=== PATIENT | male | born 1955 ===

== ENCOUNTER 2016-09-17 14:50 | Inpatient (IN) | payer MEDICARE ==
[2016-09-11 18:40] VITALS: PULSE 176
[2016-09-17 15:52] VITALS: BMI 25.9
[2016-09-17] MEDS ORDERED: Oxycodone/Acetaminophen 5/325 mg Tab PO PRN ×2 (17:15)
[2016-09-17] MEDS ORDERED: TIGECYCLINE 50 MG IV SCH (17:15)
--- NOTE | 2016-09-17 18:42 | CP.PCM.CON ---
History of Present Illness - History of Present Illness History of Present Illness: Dr Garza PMR consultation on Pedro Mtz, born 1955, who has been admitted to [facility] for acute inpatient rehabilitation following a right BKA at [facility]. Had long standing ulcer and had multiple prior surgeries that did not heal and lead to eventual BKA. He is in a lot of pain. Had been on IVP dilaudid. 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 Ambulated with a walker at home Review of Systems - Constitutional Constitutional: absent: Anorexia, Chills - EENT Eyes: Blurred Vision, Loss of Vision Ears: absent: Decreased Hearing, Ear Discharge, Disequilibrium Nose/Mouth/Throat: absent: Nasal Congestion - Cardiovascular Cardiovascular: absent: Chest Pain - Respiratory Respiratory: absent: Dyspnea - Gastrointestinal Gastrointestinal: absent: Constipation - Musculoskeletal Musculoskeletal: Other (pain in the bka site and also with some discomfort in the phantom foot, but not severe) - Neurological Neurological: absent: Abnormal Movements, Abnormal Speech - Psychiatric Psychiatric: Anxiety Past Patient History - Infectious Disease Hx of Infectious Diseases: None, C.diff - Tetanus Immunizations Tetanus Immunization: Unknown - Past Medical History & Family History Past Medical History?: Yes - Past Social History Smoking Status: Never Smoked Chewing Tobacco Use: No Cigar Use: No Alcohol: None Drugs: Denies Home Situation {Lives}: With Family - CARDIAC Hx Cardiac Disorders: Yes (afib) Hx Congestive Heart Failure: Yes (2012) Hx Hypercholesterolemia: Yes Hx Hypertension: Yes - PULMONARY Hx Pneumonia: Yes - NEUROLOGICAL HX Cerebrovascular Accident: Yes (pt reports minimal left sided weakness 2012) - HEENT Hx Cataracts: Yes (Left Eye iol) - RENAL Hx Chronic Kidney Disease: Yes - ENDOCRINE/METABOLIC Hx Diabetes Mellitus Type 2: Yes - HEMATOLOGICAL/ONCOLOGICAL Hx Anemia: Yes - MUSCULOSKELETAL/RHEUMATOLOGICAL Hx Osteomyelitis: Yes (right foot) Other/Comment: RT FOOT SX DECEMBER 2015 amp all 5 toes - GASTROINTESTINAL Hx Diverticulitis: Yes - GENITOURINARY/GYNECOLOGICAL Hx Genitourinary Disorders: No - PSYCHIATRIC Hx Depression: Yes Hx Substance Use: No - SURGICAL HISTORY Hx Appendectomy: Yes (30 Yrs. ago.) - ANESTHESIA Hx Anesthesia Reactions: Yes (hallucinations x 20 minutes post op toe amputation ) Meds Allergies/Adverse Reactions: Allergies Allergy/AdvReac Type Severity Reaction Status Date / Time clindamycin Allergy Intermediate RASH Verified 09/05/16 07:43 duloxetine HCl Allergy Intermediate tachycardia Verified 09/05/16 07:43 [From Cymbalta] - Medications Medications: Current Medications Acetaminophen (Tylenol 325mg Tab) 650 mg PO Q6 PRN PRN Reason: Fever >100.4 F Al Hydrox/Mg Hydrox/Simethicone (Maalox Plus 30 Ml) 30 ml PO Q6H PRN PRN Reason: Indigestion / Heartburn Albuterol/Ipratropium (Duoneb 3 Mg/0.5 Mg (3 Ml) Ud) 3 ml INH RQID [facility] Amiodarone HCl (Cordarone) 200 mg PO 2200 [facility] Furosemide (Lasix) 40 mg PO DAILY [facility] Heparin Sodium (Porcine) (Heparin) 5,000 units SC Q12 [facility] PRN Reason: Protocol Hydromorphone HCl (Dilaudid) 2 mg PO Q4 PRN PRN Reason: prn pain 4-8/10 Hydromorphone HCl (Dilaudid) 4 mg PO Q4 PRN PRN Reason: prn pain 9-10/10 Tigecycline 50 mg/ Sodium (Chloride) 100 mls @ 100 mls/hr IV Q12 [facility] Insulin Detemir (Levemir) 40 units SC ACB [facility] Lactobacillus Acidophilus (Bacid Acidophilus) 1 cap PO BID [facility] Loratadine (Claritin) 10 mg PO DAILY [facility] Lorazepam (Ativan) 1 mg PO BID PRN PRN Reason: for anxiety Ondansetron HCl (Zofran Inj) 4 mg IVP Q4H PRN PRN Reason: Nausea/Vomiting Oxycodone HCl (Oxycontin Extended Release Tab) 20 mg PO Q8 [facility] Pantoprazole Sodium (Protonix Ec Tab) 40 mg PO DAILY [facility] Fluticasone/Salmeterol (Advair Diskus 500/50) 1 puff INH RBID [facility] Physical Exam - Constitutional Appears: Non-toxic, In Acute Distress (mild) - Head Exam Head Exam: ATRAUMATIC, NORMAL INSPECTION, NORMOCEPHALIC - Respiratory Exam Respiratory Exam: NORMAL BREATHING PATTERN - Cardiovascular Exam Cardiovascular Exam: Tachycardia (mild) - GI/Abdominal Exam GI & Abdominal Exam: absent: Distended, Firm - Extremities Exam Extremities exam: Negative for: calf tenderness - Neurological Exam Neurological exam: Alert, CN II-XII Intact, Oriented x3 - Psychiatric Exam Psychiatric exam: Anxious Assessment & Plan - Assessment and Plan (Free Text) Assessment: right bka with pain will change to po dilaudid and add oxycontin 20mg q8 for now discussed with staff and patient and family mild residual left HP UE/LE PT/OT to continue to help increase functional independence Team conference for d/c planning Pain: control as above Vascular: no evidence of DVT GI: No evidence of constipation or diarrhea Patient is an excellent acute rehabilitation candidate and will have focused pain management, wound care, PT, OT and recreational therapy to help facilitate a safe and appropriate d/c plan impairment code 05.4
--- NOTE | 2016-09-17 18:47 | CP.PCM.PN ---
Subjective - Date & Time of Evaluation Date of Evaluation: 09/17/16 Time of Evaluation: 18:46 - Subjective Subjective: right bka Objective - Medications Medications: Current Medications Acetaminophen (Tylenol 325mg Tab) 650 mg PO Q6 PRN PRN Reason: Fever >100.4 F Al Hydrox/Mg Hydrox/Simethicone (Maalox Plus 30 Ml) 30 ml PO Q6H PRN PRN Reason: Indigestion / Heartburn Albuterol/Ipratropium (Duoneb 3 Mg/0.5 Mg (3 Ml) Ud) 3 ml INH RQID [facility] Amiodarone HCl (Cordarone) 200 mg PO 2200 [facility] Furosemide (Lasix) 40 mg PO DAILY [facility] Heparin Sodium (Porcine) (Heparin) 5,000 units SC Q12 [facility] PRN Reason: Protocol Hydromorphone HCl (Dilaudid) 2 mg PO Q4 PRN PRN Reason: pain (4-8) Hydromorphone HCl (Dilaudid) 4 mg PO Q4 PRN PRN Reason: pain (9-10) Tigecycline 50 mg/ Sodium (Chloride) 100 mls @ 100 mls/hr IV Q12H [facility] Insulin Detemir (Levemir) 40 units SC ACB [facility] Lactobacillus Acidophilus (Bacid Acidophilus) 1 cap PO BID [facility] Loratadine (Claritin) 10 mg PO DAILY [facility] Lorazepam (Ativan) 1 mg PO BID PRN PRN Reason: for anxiety Ondansetron HCl (Zofran Inj) 4 mg IVP Q4H PRN PRN Reason: Nausea/Vomiting Oxycodone HCl (Oxycontin Extended Release Tab) 20 mg PO Q8 [facility] Pantoprazole Sodium (Protonix Ec Tab) 40 mg PO DAILY [facility] Fluticasone/Salmeterol (Advair Diskus 500/50) 1 puff INH RBID [facility] Physiatry Overall Plan of Care - Overall Plan of Care Estimated Length of Stay in Weeks: 3 Rehab Impairment: Mobility, Gait, Balance, Coordination Etiologic Diagnosis: Amputee Rehab/Medical Prognosis: Guarded - Anticipated Interventions Physical Therapy:: Yes Occupational Therapy:: Yes Speech Therapy:: No Recreational Therapy:: Yes - Therapy Goals Bed Mobility: Supervision Ambulation: Moderate Assistance Functional Positional Changes:: Supervision - Discharge Plan Identification of Barriers to Discharge: Home Situation Discharge Destination: Other (not clear at this time)
[2016-09-17] MEDS: Albuterol-Ipratrop 3 mg / 0.5 (3 ml) UD INH SCH (19:02)
[2016-09-17] MEDS: oxyCODONE 20 mg ER Tab (oxyCONTIN) PO SCH ×2 (19:21→23:28)
[2016-09-17] MEDS: Fluticasone-Salmeterol 500-50mcg Diskus INH SCH ×2 (21:54→21:55)
[2016-09-18] MEDS: oxyCODONE 20 mg ER Tab (oxyCONTIN) PO SCH ×3 (06:27→21:45)
[2016-09-18] MEDS: Insulin Detemir 100 Units/ml Inj SC SCH ×2 (07:25→08:41)
[2016-09-18] MEDS: Albuterol-Ipratrop 3 mg / 0.5 (3 ml) UD INH SCH ×4 (07:38→19:40)
[2016-09-18] MEDS: Insulin Lispro (humaLOG) 100 Units/ml Inj SC SCH ×4 (09:58→21:46)
[2016-09-18] MEDS: Fluticasone-Salmeterol 500-50mcg Diskus INH SCH ×2 (10:00→21:47)
[2016-09-18] MEDS: Lactobacillus Acidophilus 500 MU Cap PO SCH ×2 (10:01→17:15)
[2016-09-18] MEDS: Pantoprazole 40 mg EC Tab PO SCH (10:01)
--- NOTE | 2016-09-18 13:44 | CP.PCM.CON ---
History of Present Illness - History of Present Illness History of Present Illness: ADMITTED FROM S/P RIGHT BKA DEVELOPED RLL INFILTRATES AND GREW MDRO IN SPUTUM HX DM RUSTY ASHD AFIB PVD DIVERTICULITIS CHRONIC FISTULA LLQ CKD III HTN NONCOMPLIANCE BLINDNESS OM RIGHT FOOT Review of Systems - Constitutional Constitutional: As Per HPI - EENT Eyes: absent: As Per HPI, Blind Spots, Blurred Vision, Change in Vision, Decreased Night Vision, Diplopia, Discharge, Dry Eye, Exophthalmos, Floaters, Irritation, Itchy Eyes, Loss of Peripheral Vision, Pain, Photophobia, Requires Corrective Lenses, Sees Flashes, Spots in Vision, Tunnel Vision, Other Visual Disturbances, Loss of Vision, Other Ears: absent: As Per HPI, Decreased Hearing, Ear Discharge, Ear Pain, Tinnitus, Abnormal Hearing, Disequilibrium, Dizziness, Other Nose/Mouth/Throat: absent: As Per HPI, Epistaxis, Nasal Congestion, Nasal Discharge, Nasal Obstruction, Nasal Trauma, Nose Pain, Post Nasal Drip, Sinus Pain, Sinus Pressure, Bleeding Gums, Change in Voice, Dental Pain, Dry Mouth, Dysphagia, Halitosis, Hoarsness, Lip Swelling, Mouth Lesions, Mouth Pain, Odynophagia, Sore Throat, Throat Swelling, Tongue Swelling, Facial Pain, Neck Pain, Neck Mass, Other - Cardiovascular Cardiovascular: As Per HPI - Respiratory Respiratory: As Per HPI - Gastrointestinal Gastrointestinal: absent: As Per HPI, Abdominal Pain, Belching, Bloating, Change in Bowel Habits, Change in Stool Character, Coffee Ground Emesis, Constipation, Cramping, Diarrhea, Dyspepsia, Dysphagia, Early Satiety, Excessive Flatus, Fecal Incontinence, Heartburn, Hematemesis, Hematochezia, Loose Stools, Melena, Nausea, Odynophagia, Temesmus, Vomiting, Other - Genitourinary Genitourinary: absent: As Per HPI, Change in Urinary Stream, Difficulty Urinating, Dysuria, Flank Pain, Hematuria, Pyuria, Nocturia, Urinary Incontinence, Urinary Frequency, Urinary Hesitance, Urinary Urgency, Voiding Freq/Small Amts, Freq UTI, Hx Renal/Bladder Calculi, Hx /Renal Surgery, Bladder Distension, Other - Musculoskeletal Musculoskeletal: As Per HPI - Integumentary Integumentary: As Per HPI, Skin Pain, Wounds - Neurological Neurological: absent: As Per HPI, Abnormal Gait, Abnormal Hearing, Abnormal Movements, Abnormal Speech, Behavioral Changes, Burning Sensations, Confusion, Convulsions, Disequilibrium, Dizziness, Numbness, Focal Weakness, Frequent Falls , Headaches, Lack of Coordination, Loss of Vision, Memory Loss, Paresthesias, Radicular Pain, Restless Legs, Sensory Deficit, Syncope, Tingling, Tremor, Vertigo, Weakness, Other Visual Disturbances, Other - Psychiatric Psychiatric: absent: As Per HPI, Abnormal Sleep Pattern, Anhedonia, Anxiety, Auditory Hallucinations, Behavioral Changes, Change in Appetite, Change in Libido, Confusion, Depression, Difficulty Concentrating, Hallucinations, Homicidal Ideation, Hopelessness, Irritability, Memory Loss, Mood Swings, Panic Attacks, Paranoia, Suicidal Ideation, Visual Hallucinations, Tactile Hallucinations, Other - Endocrine Endocrine: absent: As Per HPI, Change in Body Appearance, Change in Libido, Cold Intolorance, Deepening of Voice, Excessive Sweating, Fatigue, Flushing, Heat Intolorance, Increase in Ring/Shoe/Hat Size, Palpitations, Polydipsia, Polyphagia, Polyuria, Other - Hematologic/Lymphatic Hematologic: absent: As Per HPI, Easy Bleeding, Easy Bruising, Lymphadenopathy, Other Past Patient History - Infectious Disease Hx of Infectious Diseases: None, C.diff - Tetanus Immunizations Tetanus Immunization: Unknown - Past Medical History & Family History Past Medical History?: Yes - Past Social History Smoking Status: Never Smoked Chewing Tobacco Use: No Cigar Use: No Alcohol: None Drugs: Denies Home Situation {Lives}: With Family - CARDIAC Hx Cardiac Disorders: Yes (afib) Hx Congestive Heart Failure: Yes (2012) Hx Hypercholesterolemia: Yes Hx Hypertension: Yes - PULMONARY Hx Pneumonia: Yes - NEUROLOGICAL HX Cerebrovascular Accident: Yes (pt reports minimal left sided weakness 2012) - HEENT Hx Cataracts: Yes (Left Eye iol) - RENAL Hx Chronic Kidney Disease: Yes - ENDOCRINE/METABOLIC Hx Diabetes Mellitus Type 2: Yes - HEMATOLOGICAL/ONCOLOGICAL Hx Anemia: Yes - MUSCULOSKELETAL/RHEUMATOLOGICAL Hx Osteomyelitis: Yes (right foot) Other/Comment: RT FOOT SX DECEMBER 2015 amp all 5 toes - GASTROINTESTINAL Hx Diverticulitis: Yes - GENITOURINARY/GYNECOLOGICAL Hx Genitourinary Disorders: No - PSYCHIATRIC Hx Depression: Yes Hx Substance Use: No - SURGICAL HISTORY Hx Appendectomy: Yes (30 Yrs. ago.) - ANESTHESIA Hx Anesthesia Reactions: Yes (hallucinations x 20 minutes post op toe amputation ) Meds Allergies/Adverse Reactions: Allergies Allergy/AdvReac Type Severity Reaction Status Date / Time clindamycin Allergy Intermediate RASH Verified 09/05/16 07:43 duloxetine HCl Allergy Intermediate tachycardia Verified 09/05/16 07:43 [From Cymbalta] - Medications Medications: Current Medications Acetaminophen (Tylenol 325mg Tab) 650 mg PO Q6 PRN PRN Reason: Fever >100.4 F Al Hydrox/Mg Hydrox/Simethicone (Maalox Plus 30 Ml) 30 ml PO Q6H PRN PRN Reason: Indigestion / Heartburn Albuterol/Ipratropium (Duoneb 3 Mg/0.5 Mg (3 Ml) Ud) 3 ml INH RQID [facility] Last Admin: 09/18/16 11:51 Dose: 3 ml Amiodarone HCl (Cordarone) 200 mg PO 2200 [facility] Last Admin: 09/17/16 21:56 Dose: 200 mg Furosemide (Lasix) 40 mg PO DAILY [facility] Last Admin: 09/18/16 10:02 Dose: 40 mg Heparin Sodium (Porcine) (Heparin) 5,000 units SC Q12 [facility] PRN Reason: Protocol Last Admin: 09/18/16 10:02 Dose: 5,000 units Hydromorphone HCl (Dilaudid) 2 mg PO Q4 PRN PRN Reason: pain (4-8) Hydromorphone HCl (Dilaudid) 4 mg PO Q4 PRN PRN Reason: pain (9-10) Last Admin: 09/18/16 10:01 Dose: 4 mg Tigecycline 50 mg/ Sodium (Chloride) 100 mls @ 100 mls/hr IV Q12H [facility] Last Admin: 09/18/16 10:55 Dose: 100 mls/hr Insulin Detemir (Levemir) 40 units SC ACB [facility] Last Admin: 09/18/16 08:41 Dose: Not Given Insulin Human Lispro (Humalog) 0 units SC ACHS [facility] PRN Reason: Protocol Last Admin: 09/18/16 13:37 Dose: 6 units Lactobacillus Acidophilus (Bacid Acidophilus) 1 cap PO BID [facility] Last Admin: 09/18/16 10:01 Dose: 1 cap Loratadine (Claritin) 10 mg PO DAILY [facility] Last Admin: 09/18/16 10:01 Dose: 10 mg Lorazepam (Ativan) 1 mg PO BID PRN PRN Reason: for anxiety Ondansetron HCl (Zofran Inj) 4 mg IVP Q4H PRN PRN Reason: Nausea/Vomiting Oxycodone HCl (Oxycontin Extended Release Tab) 20 mg PO Q8 [facility] Last Admin: 09/18/16 13:36 Dose: 20 mg Pantoprazole Sodium (Protonix Ec Tab) 40 mg PO DAILY [facility] Last Admin: 09/18/16 10:01 Dose: 40 mg Fluticasone/Salmeterol (Advair Diskus 500/50) 1 puff INH RBID [facility] Last Admin: 09/18/16 10:00 Dose: 1 puff Physical Exam - Constitutional Appears: Non-toxic, Chronically Ill - Head Exam Head Exam: NORMOCEPHALIC - Eye Exam Eye Exam: PERRL. absent: Scleral icterus - ENT Exam ENT Exam: Mucous Membranes Dry, Normal External Ear Exam - Neck Exam Neck exam: Negative for: Lymphadenopathy - Respiratory Exam Respiratory Exam: Decreased Breath Sounds, Rhonchi - Cardiovascular Exam Cardiovascular Exam: REGULAR RHYTHM, +S1, +S2 - GI/Abdominal Exam GI & Abdominal Exam: Diminished Bowel Sounds, Soft. absent: Tenderness - Rectal Exam Rectal Exam: Deferred - Exam Exam: NORMAL INSPECTION - Extremities Exam Extremities exam: Negative for: calf tenderness, pedal edema - Back Exam Back exam: absent: CVA tenderness (L), CVA tenderness (R) - Neurological Exam Neurological exam: Alert, CN II-XII Intact, Oriented x3, Reflexes Normal - Psychiatric Exam Psychiatric exam: Normal Mood - Skin Skin Exam: Dry Results - Vital Signs Recent Vital Signs: Last Vital Signs Temp 97.3 F L 09/18/16 07:55 Pulse 67 09/18/16 07:55 Resp 22 09/18/16 07:55 BP 130/66 09/18/16 10:02 Pulse Ox 98 09/18/16 07:55 - Labs Result Diagrams: 09/18/16 17:47 09/18/16 17:47 Labs: Laboratory Results - last 24 hr 09/17/16 09/17/16 09/18/16 18:40 21:30 06:33 POC Glucose (mg/dL) 179 H 257 H 165 H Assessment & Plan (1) Abdominal pain Status: Acute Priority: High (2) Osteomyelitis of foot, acute Status: Acute Priority: High (3) Uncontrolled diabetes mellitus Status: Acute Priority: Medium (4) Pneumonia due to aerobic bacteria Status: Acute
--- NOTE | 2016-09-18 16:56 | CP.PCM.PN ---
Subjective - Date & Time of Evaluation Date of Evaluation: 09/18/16 Time of Evaluation: 16:55 - Subjective Subjective: Patient seen stage II noted in buttock region skin barrier cream to be utilized pain is much better controlled today and no nausea continue current care Objective - Vital Signs/Intake and Output Vital Signs (last 24 hours): Temp Pulse Resp BP Pulse Ox 97.3 F L 67 22 130/66 98 09/18/16 07:55 09/18/16 07:55 09/18/16 07:55 09/18/16 10:02 09/18/16 07:55 - Medications Medications: Current Medications Acetaminophen (Tylenol 325mg Tab) 650 mg PO Q6 PRN PRN Reason: Fever >100.4 F Al Hydrox/Mg Hydrox/Simethicone (Maalox Plus 30 Ml) 30 ml PO Q6H PRN PRN Reason: Indigestion / Heartburn Albuterol/Ipratropium (Duoneb 3 Mg/0.5 Mg (3 Ml) Ud) 3 ml INH RQID [facility] Last Admin: 09/18/16 15:47 Dose: 3 ml Amiodarone HCl (Cordarone) 200 mg PO 2200 [facility] Last Admin: 09/17/16 21:56 Dose: 200 mg Clotrimazole (Lotrimin 1% Cream) 1 applic TOP BID [facility] Furosemide (Lasix) 40 mg PO DAILY [facility] Last Admin: 09/18/16 10:02 Dose: 40 mg Heparin Sodium (Porcine) (Heparin) 5,000 units SC Q12 [facility] PRN Reason: Protocol Last Admin: 09/18/16 10:02 Dose: 5,000 units Hydromorphone HCl (Dilaudid) 2 mg PO Q4 PRN PRN Reason: pain (4-8) Hydromorphone HCl (Dilaudid) 4 mg PO Q4 PRN PRN Reason: pain (9-10) Last Admin: 09/18/16 10:01 Dose: 4 mg Tigecycline 50 mg/ Sodium (Chloride) 100 mls @ 100 mls/hr IV Q12H [facility] Last Admin: 09/18/16 10:55 Dose: 100 mls/hr Insulin Detemir (Levemir) 40 units SC ACB [facility] Last Admin: 09/18/16 08:41 Dose: Not Given Insulin Human Lispro (Humalog) 0 units SC ACHS [facility] PRN Reason: Protocol Last Admin: 09/18/16 13:37 Dose: 6 units Lactobacillus Acidophilus (Bacid Acidophilus) 1 cap PO BID [facility] Last Admin: 09/18/16 10:01 Dose: 1 cap Loratadine (Claritin) 10 mg PO DAILY [facility] Last Admin: 09/18/16 10:01 Dose: 10 mg Lorazepam (Ativan) 1 mg PO BID PRN PRN Reason: for anxiety Ondansetron HCl (Zofran Inj) 4 mg IVP Q4H PRN PRN Reason: Nausea/Vomiting Oxycodone HCl (Oxycontin Extended Release Tab) 20 mg PO Q8 [facility] Last Admin: 09/18/16 13:36 Dose: 20 mg Pantoprazole Sodium (Protonix Ec Tab) 40 mg PO DAILY [facility] Last Admin: 09/18/16 10:01 Dose: 40 mg Fluticasone/Salmeterol (Advair Diskus 500/50) 1 puff INH RBID [facility] Last Admin: 09/18/16 10:00 Dose: 1 puff
[2016-09-18 18:07] LABS: ALB/GLOB RATIO 0.6 (1.0-2.1); BILIRUBIN,TOTAL 0.3 mg/dl (0.2-1.3); CALCIUM 7.9 mg/dL (8.4-10.2); POTASSIUM 4.1 MMOL/L (3.6-5.0); TOTAL PROTEIN 6.8 G/DL (6.3-8.2)
[2016-09-18 18:14] LABS: BASO # 0.1 K/uL (0.0-0.2); BASO % 0.4 % (0.0-2.0); EOS # 0.2 K/uL (0.0-0.7); EOS % 1.3 % (0.0-4.0); HEMATOCRIT 28.2 % (35.0-51.0); LYMPH # 1.3 K/uL (1.0-4.3); LYMPH % 6.8 % (20.0-40.0); MEAN CELL VOLUME 85.4 fl (80.0-94.0); MEAN CORPUSCULAR HEMOGLOBIN 28.7 pg (27.0-31.0); MEAN CORPUSCULAR HGB CONC 33.6 g/dL (33.0-37.0); MONO # 1.1 K/uL (0.0-0.8); MONO % 5.9 % (0.0-10.0); NEUT # 16.2 K/uL (1.8-7.0); NEUT % 85.6 % (50.0-75.0); PLATELET COUNT 421 K/uL (130-400); RED CELL DISTRIBUTION WIDTH 15.2 % (11.5-14.5)
[2016-09-18 19:17] LABS: EOSINOPHIL 1 % (0-7); MYELOCYTE 4 % (0-0); NEUTROPHIL 83 % (42-75); TOTAL CELLS COUNTED 100
[2016-09-18 20:44] LABS: ERYTHROCYTE SEDIMENTATION RATE > 120 mm/hr (0-20)
[2016-09-19] MEDS: oxyCODONE 20 mg ER Tab (oxyCONTIN) PO SCH ×3 (06:27→22:15)
[2016-09-19] MEDS: Insulin Detemir 100 Units/ml Inj SC SCH (07:01)
[2016-09-19] MEDS: Insulin Lispro (humaLOG) 100 Units/ml Inj SC SCH ×4 (07:09→22:45)
[2016-09-19 07:30] LABS: MEAN CELL VOLUME 86.3 fl (80.0-94.0); MEAN CORPUSCULAR HEMOGLOBIN 28.4 pg (27.0-31.0); MEAN CORPUSCULAR HGB CONC 32.9 g/dL (33.0-37.0); RED CELL DISTRIBUTION WIDTH 15.6 % (11.5-14.5)
[2016-09-19] MEDS: Albuterol-Ipratrop 3 mg / 0.5 (3 ml) UD INH SCH ×4 (07:59→19:39)
--- NOTE | 2016-09-19 08:37 | RAD ---
HISTORY: WBC elevated COMPARISON: No prior. FINDINGS: LUNGS: Right hilar enlargement. Increased diffuse haziness in the right lung. PLEURA: No significant pleural effusion identified, no pneumothorax apparent. CARDIOVASCULAR: Enlarged cardiomediastinal silhouette. OSSEOUS STRUCTURES: The osseous structures demonstrate degenerative changes. VISUALIZED UPPER ABDOMEN: Normal. OTHER FINDINGS: Right-sided medication port with the distal tip of the catheter overlying the projection of the SVC/right atrial junction. IMPRESSION: Increased diffuse haziness in the right lung with hilar enlargement.
[2016-09-19] MEDS: Fluticasone-Salmeterol 500-50mcg Diskus INH SCH ×2 (08:50→22:12)
[2016-09-19] MEDS: Lactobacillus Acidophilus 500 MU Cap PO SCH ×2 (08:56→17:18)
[2016-09-19] MEDS: Pantoprazole 40 mg EC Tab PO SCH (09:01)
[2016-09-20] MEDS: oxyCODONE 20 mg ER Tab (oxyCONTIN) PO SCH ×3 (07:24→21:40)
[2016-09-20] MEDS: Insulin Detemir 100 Units/ml Inj SC SCH (07:26)
[2016-09-20] MEDS: Albuterol-Ipratrop 3 mg / 0.5 (3 ml) UD INH SCH ×4 (07:28→20:16)
[2016-09-20] MEDS: Insulin Lispro (humaLOG) 100 Units/ml Inj SC SCH ×4 (07:28→21:31)
[2016-09-20] MEDS: Fluticasone-Salmeterol 500-50mcg Diskus INH SCH ×2 (08:55→20:58)
[2016-09-20] MEDS: Lactobacillus Acidophilus 500 MU Cap PO SCH ×2 (08:57→16:43)
[2016-09-20] MEDS: Pantoprazole 40 mg EC Tab PO SCH (08:58)
--- NOTE | 2016-09-20 10:53 | CP.PCM.PN ---
Subjective - Date & Time of Evaluation Date of Evaluation: 09/20/16 Time of Evaluation: 10:52 - Subjective Subjective: Patient seen in room stable taking the dilaudid 4mg prn pain in the 9/10 range, but dealing ok with it and understands plan of care Objective - Vital Signs/Intake and Output Vital Signs (last 24 hours): Temp Pulse Resp BP Pulse Ox 96.8 F L 72 18 122/60 97 09/20/16 09:30 09/20/16 09:30 09/20/16 09:30 09/20/16 09:31 09/19/16 22:00 - Medications Medications: Current Medications Acetaminophen (Tylenol 325mg Tab) 650 mg PO Q6 PRN PRN Reason: Fever >100.4 F Al Hydrox/Mg Hydrox/Simethicone (Maalox Plus 30 Ml) 30 ml PO Q6H PRN PRN Reason: Indigestion / Heartburn Albuterol/Ipratropium (Duoneb 3 Mg/0.5 Mg (3 Ml) Ud) 3 ml INH RQID [facility] Last Admin: 09/20/16 07:28 Dose: 3 ml Amiodarone HCl (Cordarone) 200 mg PO 2200 [facility] Last Admin: 09/19/16 22:13 Dose: 200 mg Clotrimazole (Lotrimin 1% Cream) 1 applic TOP BID [facility] Last Admin: 09/20/16 08:57 Dose: 1 applic Furosemide (Lasix) 40 mg PO DAILY [facility] Last Admin: 09/20/16 09:31 Dose: 40 mg Heparin Sodium (Porcine) (Heparin) 5,000 units SC Q12 [facility] PRN Reason: Protocol Last Admin: 09/20/16 08:58 Dose: 5,000 units Hydromorphone HCl (Dilaudid) 2 mg PO Q4 PRN PRN Reason: pain (4-8) Hydromorphone HCl (Dilaudid) 4 mg PO Q4 PRN PRN Reason: pain (9-10) Last Admin: 09/19/16 08:56 Dose: 4 mg Tigecycline 50 mg/ Sodium (Chloride) 100 mls @ 100 mls/hr IV Q12H [facility] Last Admin: 09/20/16 09:33 Dose: 100 mls/hr Insulin Detemir (Levemir) 40 units SC ACB [facility] Last Admin: 09/20/16 07:26 Dose: 40 units Insulin Human Lispro (Humalog) 0 units SC ACHS [facility] PRN Reason: Protocol Last Admin: 09/20/16 07:28 Dose: 4 units Lactobacillus Acidophilus (Bacid Acidophilus) 1 cap PO BID [facility] Last Admin: 09/20/16 08:57 Dose: 1 cap Loratadine (Claritin) 10 mg PO DAILY [facility] Last Admin: 09/20/16 08:57 Dose: 10 mg Lorazepam (Ativan) 1 mg PO BID PRN PRN Reason: for anxiety Ondansetron HCl (Zofran Inj) 4 mg IVP Q4H PRN PRN Reason: Nausea/Vomiting Oxycodone HCl (Oxycontin Extended Release Tab) 20 mg PO Q8 [facility] Last Admin: 09/20/16 07:24 Dose: 20 mg Pantoprazole Sodium (Protonix Ec Tab) 40 mg PO DAILY [facility] Last Admin: 09/20/16 08:58 Dose: 40 mg Fluticasone/Salmeterol (Advair Diskus 500/50) 1 puff INH RBID [facility] Last Admin: 09/20/16 08:55 Dose: 1 puff - Labs Labs: 09/19/16 05:30 09/18/16 17:47
--- NOTE | 2016-09-20 11:59 | CP.PCM.HP ---
Present on Admission - Present on Admission Any Indicators Present on Admission: No History of DVT/PE: No History of Uncontrolled Diabetes: Yes Urinary Catheter: No Decubitus Ulcer Present: Yes Decubitus Ulcer Location: right buttock stage 2. right buttock DTI. Sacrum, stage 2. left lower quadrant, draining old fistula site, chronic. rash left groin. left big toe, scab. left knee, scab Decubitus Ulcer Stage: II Review of Systems - EENT Eyes: Blurred Vision - Respiratory Respiratory: Cough, Chest Congestion Past Patient History - Infectious Disease Hx of Infectious Diseases: None, C.diff - Tetanus Immunizations Tetanus Immunization: Unknown - Past Medical History & Family History Past Medical History?: Yes - Past Social History Smoking Status: Never Smoked Chewing Tobacco Use: No Cigar Use: No Alcohol: None Drugs: Denies Home Situation {Lives}: With Family - CARDIAC Hx Cardiac Disorders: Yes (afib) Hx Congestive Heart Failure: Yes (2012) Hx Hypercholesterolemia: Yes Hx Hypertension: Yes - PULMONARY Hx Pneumonia: Yes - NEUROLOGICAL HX Cerebrovascular Accident: Yes (pt reports minimal left sided weakness 2012) - HEENT Hx Cataracts: Yes (Left Eye iol) - RENAL Hx Chronic Kidney Disease: Yes - ENDOCRINE/METABOLIC Hx Diabetes Mellitus Type 2: Yes - HEMATOLOGICAL/ONCOLOGICAL Hx Anemia: Yes - MUSCULOSKELETAL/RHEUMATOLOGICAL Hx Osteomyelitis: Yes (right foot) Other/Comment: RT FOOT SX DECEMBER 2015 amp all 5 toes - GASTROINTESTINAL Hx Diverticulitis: Yes - GENITOURINARY/GYNECOLOGICAL Hx Genitourinary Disorders: No - PSYCHIATRIC Hx Depression: Yes Hx Substance Use: No - SURGICAL HISTORY Hx Appendectomy: Yes (30 Yrs. ago.) - ANESTHESIA Hx Anesthesia Reactions: Yes (hallucinations x 20 minutes post op toe amputation ) Meds Allergies/Adverse Reactions: Allergies Allergy/AdvReac Type Severity Reaction Status Date / Time clindamycin Allergy Intermediate RASH Verified 09/05/16 07:43 duloxetine HCl Allergy Intermediate tachycardia Verified 09/05/16 07:43 [From Cymbalta] Physical Exam - Constitutional Appears: No Acute Distress - Eye Exam Additional comments: poor vison left blind,right - ENT Exam ENT Exam: Mucous Membranes Moist - Respiratory Exam Respiratory Exam: Clear to Auscultation Bilateral - Cardiovascular Exam Cardiovascular Exam: REGULAR RHYTHM Additional comments: had hx of atrial fib - GI/Abdominal Exam GI & Abdominal Exam: Normal Bowel Sounds - Extremities Exam Additional comments: 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 dark discoloration on toes and foot left. - Neurological Exam Neurological exam: Alert, Oriented x3 - Psychiatric Exam Psychiatric exam: Normal Mood Results - Vital Signs Recent Vital Signs: Last Vital Signs Temp 96.8 F L 09/20/16 09:30 Pulse 72 09/20/16 09:30 Resp 18 09/20/16 09:30 BP 122/60 09/20/16 09:31 Pulse Ox 97 09/19/16 22:00 - Labs Result Diagrams: 09/19/16 05:30 09/18/16 17:47 Labs: Laboratory Results - last 24 hr 09/19/16 09/19/16 09/19/16 11:41 15:40 21:58 POC Glucose (mg/dL) 231 H 370 H 274 H 09/20/16 07:15 POC Glucose (mg/dL) 204 H Assessment & Plan (1) CKD (chronic kidney disease), stage II Status: Chronic (2) Diabetes mellitus Status: Chronic (3) Hypertension Status: Chronic (4) PVD (peripheral vascular disease) with claudication Status: Chronic (5) Abnormality of gait Status: Acute (6) Paroxysmal atrial fibrillation Status: Acute (7) 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
--- NOTE | 2016-09-20 12:08 | CP.PCM.PN ---
Subjective - Date & Time of Evaluation Date of Evaluation: 09/19/16 Time of Evaluation: 09:00 - Subjective Subjective: Patient remains stable. Afebrile.Noted WBC at 17K Still on contact isolation due to Klebsiella in sputum Has less cough Objective - Vital Signs/Intake and Output Vital Signs (last 24 hours): Temp Pulse Resp BP Pulse Ox 96.8 F L 72 18 122/60 97 09/20/16 09:30 09/20/16 09:30 09/20/16 09:30 09/20/16 09:31 09/19/16 22:00 - Medications Medications: Current Medications Acetaminophen (Tylenol 325mg Tab) 650 mg PO Q6 PRN PRN Reason: Fever >100.4 F Al Hydrox/Mg Hydrox/Simethicone (Maalox Plus 30 Ml) 30 ml PO Q6H PRN PRN Reason: Indigestion / Heartburn Albuterol/Ipratropium (Duoneb 3 Mg/0.5 Mg (3 Ml) Ud) 3 ml INH RQID [facility] Last Admin: 09/20/16 11:04 Dose: 3 ml Amiodarone HCl (Cordarone) 200 mg PO 2200 [facility] Last Admin: 09/19/16 22:13 Dose: 200 mg Clotrimazole (Lotrimin 1% Cream) 1 applic TOP BID [facility] Last Admin: 09/20/16 08:57 Dose: 1 applic Furosemide (Lasix) 40 mg PO DAILY [facility] Last Admin: 09/20/16 09:31 Dose: 40 mg Heparin Sodium (Porcine) (Heparin) 5,000 units SC Q12 [facility] PRN Reason: Protocol Last Admin: 09/20/16 08:58 Dose: 5,000 units Hydromorphone HCl (Dilaudid) 2 mg PO Q4 PRN PRN Reason: pain (4-8) Hydromorphone HCl (Dilaudid) 4 mg PO Q4 PRN PRN Reason: pain (9-10) Tigecycline 50 mg/ Sodium (Chloride) 100 mls @ 100 mls/hr IV Q12H [facility] Last Admin: 09/20/16 09:33 Dose: 100 mls/hr Insulin Detemir (Levemir) 40 units SC ACB [facility] Last Admin: 09/20/16 07:26 Dose: 40 units Insulin Human Lispro (Humalog) 0 units SC ACHS [facility] PRN Reason: Protocol Last Admin: 09/20/16 11:51 Dose: 4 units Lactobacillus Acidophilus (Bacid Acidophilus) 1 cap PO BID [facility] Last Admin: 09/20/16 08:57 Dose: 1 cap Loratadine (Claritin) 10 mg PO DAILY [facility] Last Admin: 09/20/16 08:57 Dose: 10 mg Lorazepam (Ativan) 1 mg PO BID PRN PRN Reason: for anxiety Ondansetron HCl (Zofran Inj) 4 mg IVP Q4H PRN PRN Reason: Nausea/Vomiting Oxycodone HCl (Oxycontin Extended Release Tab) 20 mg PO Q8 [facility] Pantoprazole Sodium (Protonix Ec Tab) 40 mg PO DAILY [facility] Last Admin: 09/20/16 08:58 Dose: 40 mg Fluticasone/Salmeterol (Advair Diskus 500/50) 1 puff INH RBID [facility] Last Admin: 09/20/16 08:55 Dose: 1 puff - Labs Labs: 09/19/16 05:30 09/18/16 17:47 - Head Exam Head Exam: NORMAL INSPECTION - Eye Exam Eye Exam: Normal appearance - ENT Exam ENT Exam: Mucous Membranes Moist - Respiratory Exam Respiratory Exam: Decreased Breath Sounds, Rhonchi - Cardiovascular Exam Cardiovascular Exam: REGULAR RHYTHM - Neurological Exam Neurological Exam: CN II-XII Intact, Oriented x3 Assessment and Plan (1) CKD (chronic kidney disease), stage II Status: Chronic (2) Diabetes mellitus Status: Chronic (3) Hypertension Status: Chronic (4) PVD (peripheral vascular disease) with claudication Status: Chronic (5) Abnormality of gait Status: Acute (6) Paroxysmal atrial fibrillation Status: Acute (7) 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 Cont meds.
--- NOTE | 2016-09-20 12:11 | CP.PCM.PN ---
Subjective - Date & Time of Evaluation Date of Evaluation: 09/20/16 Time of Evaluation: 12:08 - Subjective Subjective: Patient feels a lot better. Still with cough Has no fever Still on isolation. Has less pain on the right BKA stump Objective - Vital Signs/Intake and Output Vital Signs (last 24 hours): Temp Pulse Resp BP Pulse Ox 96.8 F L 72 18 122/60 97 09/20/16 09:30 09/20/16 09:30 09/20/16 09:30 09/20/16 09:31 09/19/16 22:00 - Medications Medications: Current Medications Acetaminophen (Tylenol 325mg Tab) 650 mg PO Q6 PRN PRN Reason: Fever >100.4 F Al Hydrox/Mg Hydrox/Simethicone (Maalox Plus 30 Ml) 30 ml PO Q6H PRN PRN Reason: Indigestion / Heartburn Albuterol/Ipratropium (Duoneb 3 Mg/0.5 Mg (3 Ml) Ud) 3 ml INH RQID [facility] Last Admin: 09/20/16 11:04 Dose: 3 ml Amiodarone HCl (Cordarone) 200 mg PO 2200 [facility] Last Admin: 09/19/16 22:13 Dose: 200 mg Clotrimazole (Lotrimin 1% Cream) 1 applic TOP BID [facility] Last Admin: 09/20/16 08:57 Dose: 1 applic Furosemide (Lasix) 40 mg PO DAILY [facility] Last Admin: 09/20/16 09:31 Dose: 40 mg Heparin Sodium (Porcine) (Heparin) 5,000 units SC Q12 [facility] PRN Reason: Protocol Last Admin: 09/20/16 08:58 Dose: 5,000 units Hydromorphone HCl (Dilaudid) 2 mg PO Q4 PRN PRN Reason: pain (4-8) Hydromorphone HCl (Dilaudid) 4 mg PO Q4 PRN PRN Reason: pain (9-10) Tigecycline 50 mg/ Sodium (Chloride) 100 mls @ 100 mls/hr IV Q12H [facility] Last Admin: 09/20/16 09:33 Dose: 100 mls/hr Insulin Detemir (Levemir) 40 units SC ACB [facility] Last Admin: 09/20/16 07:26 Dose: 40 units Insulin Human Lispro (Humalog) 0 units SC ACHS [facility] PRN Reason: Protocol Last Admin: 09/20/16 11:51 Dose: 4 units Lactobacillus Acidophilus (Bacid Acidophilus) 1 cap PO BID [facility] Last Admin: 09/20/16 08:57 Dose: 1 cap Loratadine (Claritin) 10 mg PO DAILY [facility] Last Admin: 09/20/16 08:57 Dose: 10 mg Lorazepam (Ativan) 1 mg PO BID PRN PRN Reason: for anxiety Ondansetron HCl (Zofran Inj) 4 mg IVP Q4H PRN PRN Reason: Nausea/Vomiting Oxycodone HCl (Oxycontin Extended Release Tab) 20 mg PO Q8 [facility] Pantoprazole Sodium (Protonix Ec Tab) 40 mg PO DAILY [facility] Last Admin: 09/20/16 08:58 Dose: 40 mg Fluticasone/Salmeterol (Advair Diskus 500/50) 1 puff INH RBID [facility] Last Admin: 09/20/16 08:55 Dose: 1 puff - Labs Labs: 09/19/16 05:30 09/18/16 17:47 - Head Exam Head Exam: NORMAL INSPECTION - Eye Exam Eye Exam: Normal appearance - ENT Exam ENT Exam: Mucous Membranes Moist - Respiratory Exam Respiratory Exam: Decreased Breath Sounds, Rhonchi - Cardiovascular Exam Cardiovascular Exam: REGULAR RHYTHM - GI/Abdominal Exam GI & Abdominal Exam: Normal Bowel Sounds - Neurological Exam Neurological Exam: Awake, Oriented x3 Assessment and Plan (1) CKD (chronic kidney disease), stage II Status: Chronic (2) Diabetes mellitus Status: Chronic (3) Hypertension Status: Chronic (4) PVD (peripheral vascular disease) with claudication Status: Chronic (5) Abnormality of gait Status: Acute (6) Paroxysmal atrial fibrillation Status: Acute (7) 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 start adjusted januvia glipizide ER 5 mg daily check labs in am.
--- NOTE | 2016-09-20 14:02 | CP.PCM.PN ---
Subjective - Date & Time of Evaluation Date of Evaluation: 09/20/16 Time of Evaluation: 09:00 - Subjective Subjective: has mdro sputum cxr worse? wbc trending down consider pulm eval Objective - Vital Signs/Intake and Output Vital Signs (last 24 hours): Temp Pulse Resp BP Pulse Ox 96.8 F L 72 18 122/60 97 09/20/16 09:30 09/20/16 09:30 09/20/16 09:30 09/20/16 09:31 09/19/16 22:00 - Medications Medications: Current Medications Acetaminophen (Tylenol 325mg Tab) 650 mg PO Q6 PRN PRN Reason: Fever >100.4 F Al Hydrox/Mg Hydrox/Simethicone (Maalox Plus 30 Ml) 30 ml PO Q6H PRN PRN Reason: Indigestion / Heartburn Albuterol/Ipratropium (Duoneb 3 Mg/0.5 Mg (3 Ml) Ud) 3 ml INH RQID [facility] Last Admin: 09/20/16 11:04 Dose: 3 ml Amiodarone HCl (Cordarone) 200 mg PO 2200 [facility] Last Admin: 09/19/16 22:13 Dose: 200 mg Clotrimazole (Lotrimin 1% Cream) 1 applic TOP BID [facility] Last Admin: 09/20/16 08:57 Dose: 1 applic Furosemide (Lasix) 40 mg PO DAILY [facility] Last Admin: 09/20/16 09:31 Dose: 40 mg Glipizide (Glucotrol Xl) 5 mg PO BRK [facility] Heparin Sodium (Porcine) (Heparin) 5,000 units SC Q12 [facility] PRN Reason: Protocol Last Admin: 09/20/16 08:58 Dose: 5,000 units Hydromorphone HCl (Dilaudid) 2 mg PO Q4 PRN PRN Reason: pain (4-8) Hydromorphone HCl (Dilaudid) 4 mg PO Q4 PRN PRN Reason: pain (9-10) Tigecycline 50 mg/ Sodium (Chloride) 100 mls @ 100 mls/hr IV Q12H [facility] Last Admin: 09/20/16 09:33 Dose: 100 mls/hr Insulin Detemir (Levemir) 40 units SC ACB [facility] Last Admin: 09/20/16 07:26 Dose: 40 units Insulin Human Lispro (Humalog) 0 units SC ACHS [facility] PRN Reason: Protocol Last Admin: 09/20/16 11:51 Dose: 4 units Lactobacillus Acidophilus (Bacid Acidophilus) 1 cap PO BID [facility] Last Admin: 09/20/16 08:57 Dose: 1 cap Loratadine (Claritin) 10 mg PO DAILY [facility] Last Admin: 09/20/16 08:57 Dose: 10 mg Lorazepam (Ativan) 1 mg PO BID PRN PRN Reason: for anxiety Ondansetron HCl (Zofran Inj) 4 mg IVP Q4H PRN PRN Reason: Nausea/Vomiting Oxycodone HCl (Oxycontin Extended Release Tab) 20 mg PO Q8 [facility] Pantoprazole Sodium (Protonix Ec Tab) 40 mg PO DAILY [facility] Last Admin: 09/20/16 08:58 Dose: 40 mg Fluticasone/Salmeterol (Advair Diskus 500/50) 1 puff INH RBID [facility] Last Admin: 09/20/16 08:55 Dose: 1 puff Sitagliptin Phosphate (Januvia) 25 mg PO DAILY [facility] - Labs Labs: 09/19/16 05:30 09/18/16 17:47 - Constitutional Appears: Non-toxic, Chronically Ill - Head Exam Head Exam: absent: NORMOCEPHALIC - Eye Exam Eye Exam: absent: Scleral icterus - ENT Exam ENT Exam: Mucous Membranes Dry - Neck Exam Neck Exam: absent: Lymphadenopathy - Respiratory Exam Respiratory Exam: Decreased Breath Sounds, Rhonchi - Cardiovascular Exam Cardiovascular Exam: REGULAR RHYTHM, +S1, +S2 - GI/Abdominal Exam GI & Abdominal Exam: Distended, Soft. absent: Tenderness - Rectal Exam Rectal Exam: Deferred - Exam Exam: NORMAL INSPECTION Assessment and Plan (1) Abdominal pain Status: Acute (2) Osteomyelitis of foot, acute Status: Acute (3) Uncontrolled diabetes mellitus Status: Acute (4) Pneumonia due to aerobic bacteria Status: Acute
[2016-09-20] MEDS: GlipiZIDE 5 mg SR Tab PO SCH (14:16)
[2016-09-20] MEDS: Docusate-Senna 50 mg-8.6 mg Tab PO SCH (22:26)
[2016-09-21] MEDS: oxyCODONE 20 mg ER Tab (oxyCONTIN) PO SCH ×3 (06:07→21:45)
[2016-09-21 07:17] LABS: BASO # 0.1 K/uL (0.0-0.2); BASO % 0.4 % (0.0-2.0); EOS # 0.2 K/uL (0.0-0.7); EOS % 1.1 % (0.0-4.0); HEMATOCRIT 29.2 % (35.0-51.0); LYMPH # 1.2 K/uL (1.0-4.3); LYMPH % 6.2 % (20.0-40.0); MEAN CORPUSCULAR HEMOGLOBIN 28.3 pg (27.0-31.0); MEAN CORPUSCULAR HGB CONC 32.5 g/dL (33.0-37.0); MONO # 1.1 K/uL (0.0-0.8); MONO % 5.7 % (0.0-10.0); NEUT # 17.1 K/uL (1.8-7.0); NEUT % 86.6 % (50.0-75.0); RED CELL DISTRIBUTION WIDTH 15.2 % (11.5-14.5); WHITE BLOOD COUNT 19.7 K/uL (4.8-10.8)
[2016-09-21] MEDS: Insulin Detemir 100 Units/ml Inj SC SCH (07:18)
[2016-09-21] MEDS: Insulin Lispro (humaLOG) 100 Units/ml Inj SC SCH ×4 (07:19→21:09)
[2016-09-21 07:30] LABS: ALB/GLOB RATIO 0.6 (1.0-2.1); BILIRUBIN,TOTAL 0.7 mg/dl (0.2-1.3); CALCIUM 8.4 mg/dL (8.4-10.2); TOTAL PROTEIN 6.9 G/DL (6.3-8.2)
[2016-09-21 07:32] LABS: POTASSIUM 5.3 MMOL/L (3.6-5.0)
--- NOTE | 2016-09-21 08:37 | CARD ---
APPROVED REPORT EKG Measurement Heart [id number] <Conclusion> Normal sinus rhythm Prolonged QT Abnormal ECG artefact present
[2016-09-21] MEDS: Albuterol-Ipratrop 3 mg / 0.5 (3 ml) UD INH SCH ×4 (08:39→19:12)
[2016-09-21] MEDS: GlipiZIDE 5 mg SR Tab PO SCH (09:00)
[2016-09-21] MEDS: Fluticasone-Salmeterol 500-50mcg Diskus INH SCH ×2 (09:00→21:44)
[2016-09-21] MEDS: Lactobacillus Acidophilus 500 MU Cap PO SCH ×2 (09:02→17:12)
[2016-09-21] MEDS: Pantoprazole 40 mg EC Tab PO SCH (09:03)
[2016-09-21] MEDS: Docusate-Senna 50 mg-8.6 mg Tab PO SCH (22:04)
[2016-09-21] MEDS: Alum-Mag Hydrox-Simethicone Susp (30 mL) PO PRN (23:40)
[2016-09-22] MEDS: oxyCODONE 20 mg ER Tab (oxyCONTIN) PO SCH ×3 (05:58→21:20)
[2016-09-22] MEDS: Insulin Lispro (humaLOG) 100 Units/ml Inj SC SCH ×4 (06:50→21:23)
[2016-09-22] MEDS: Albuterol-Ipratrop 3 mg / 0.5 (3 ml) UD INH SCH ×4 (07:46→19:49)
[2016-09-22] MEDS: Lactobacillus Acidophilus 500 MU Cap PO SCH ×2 (08:28→17:04)
[2016-09-22] MEDS: Fluticasone-Salmeterol 500-50mcg Diskus INH SCH ×2 (08:29→21:19)
[2016-09-22] MEDS: Pantoprazole 40 mg EC Tab PO SCH (08:30)
[2016-09-22] MEDS: GlipiZIDE 5 mg SR Tab PO SCH (08:30)
--- NOTE | 2016-09-22 10:39 | CP.PCM.PN ---
Subjective - Date & Time of Evaluation Date of Evaluation: 09/22/16 Time of Evaluation: 07:00 - Subjective Subjective: has mdro sputum cxr worse? consider pulm eval Objective - Vital Signs/Intake and Output Vital Signs (last 24 hours): Temp Pulse Resp BP Pulse Ox 97.5 F L 76 22 130/68 97 09/22/16 09:00 09/22/16 09:00 09/22/16 09:00 09/22/16 09:00 09/22/16 08:08 - Medications Medications: Current Medications Acetaminophen (Tylenol 325mg Tab) 650 mg PO Q6 PRN PRN Reason: Fever >100.4 F Al Hydrox/Mg Hydrox/Simethicone (Maalox Plus 30 Ml) 30 ml PO Q6H PRN PRN Reason: Indigestion / Heartburn Last Admin: 09/21/16 23:40 Dose: 30 ml Albuterol/Ipratropium (Duoneb 3 Mg/0.5 Mg (3 Ml) Ud) 3 ml INH RQID [facility] Last Admin: 09/22/16 07:46 Dose: 3 ml Amiodarone HCl (Cordarone) 200 mg PO 2200 [facility] Last Admin: 09/21/16 21:44 Dose: 200 mg Clotrimazole (Lotrimin 1% Cream) 1 applic TOP BID [facility] Last Admin: 09/22/16 08:29 Dose: 1 applic Docusate Sodium (Colace) 100 mg PO TID [facility] Last Admin: 09/22/16 08:31 Dose: 100 mg Furosemide (Lasix) 20 mg PO DAILY [facility] Last Admin: 09/22/16 08:31 Dose: 20 mg Glipizide (Glucotrol Xl) 5 mg PO BRK [facility] Last Admin: 09/22/16 08:30 Dose: 5 mg Heparin Sodium (Porcine) (Heparin) 5,000 units SC Q12 [facility] PRN Reason: Protocol Last Admin: 09/22/16 08:30 Dose: 5,000 units Hydromorphone HCl (Dilaudid) 2 mg PO Q4 PRN PRN Reason: pain (4-8) Hydromorphone HCl (Dilaudid) 4 mg PO Q4 PRN PRN Reason: pain (9-10) Tigecycline 50 mg/ Sodium (Chloride) 100 mls @ 100 mls/hr IV Q12@0900,2100 [facility] Last Admin: 09/22/16 08:28 Dose: 100 mls/hr Insulin Detemir (Levemir) 30 units SC [facility] Insulin Human Lispro (Humalog) 0 units SC ACHS [facility] PRN Reason: Protocol Last Admin: 09/22/16 06:50 Dose: 2 units Lactobacillus Acidophilus (Bacid Acidophilus) 1 cap PO BID [facility] Last Admin: 09/22/16 08:28 Dose: 1 cap Loratadine (Claritin) 10 mg PO DAILY [facility] Last Admin: 09/22/16 08:29 Dose: 10 mg Lorazepam (Ativan) 1 mg PO BID PRN PRN Reason: for anxiety Ondansetron HCl (Zofran Inj) 4 mg IVP Q4H PRN PRN Reason: Nausea/Vomiting Oxycodone HCl (Oxycontin Extended Release Tab) 20 mg PO Q8 [facility] Last Admin: 09/22/16 05:58 Dose: 20 mg Pantoprazole Sodium (Protonix Ec Tab) 40 mg PO DAILY [facility] Last Admin: 09/22/16 08:30 Dose: 40 mg Pioglitazone HCl (Actos) 30 mg PO DAILY [facility] Last Admin: 09/22/16 08:30 Dose: 30 mg Fluticasone/Salmeterol (Advair Diskus 500/50) 1 puff INH RBID [facility] Last Admin: 09/22/16 08:29 Dose: 1 puff Senna/Docusate Sodium (Senokot S 50 Mg-8.6 Mg) 2 tab PO HS [facility] Last Admin: 09/21/16 22:04 Dose: 2 tab Sitagliptin Phosphate (Januvia) 25 mg PO DAILY [facility] Last Admin: 09/22/16 08:30 Dose: 25 mg - Labs Labs: 09/21/16 06:58 09/21/16 10:25 - Constitutional Appears: Non-toxic, Chronically Ill - Head Exam Head Exam: NORMOCEPHALIC - Eye Exam Eye Exam: absent: Scleral icterus - ENT Exam ENT Exam: Mucous Membranes Dry - Neck Exam Neck Exam: absent: Lymphadenopathy - Respiratory Exam Respiratory Exam: Decreased Breath Sounds, Rhonchi - Cardiovascular Exam Cardiovascular Exam: REGULAR RHYTHM, +S1, +S2 - GI/Abdominal Exam GI & Abdominal Exam: Distended, Soft - Rectal Exam Rectal Exam: Deferred - Extremities Exam Extremities Exam: Pedal Edema. absent: Calf Tenderness, Tenderness - Back Exam Back Exam: absent: CVA tenderness (L), CVA tenderness (R) Assessment and Plan (1) Abdominal pain Status: Acute (2) Osteomyelitis of foot, acute Status: Acute (3) Uncontrolled diabetes mellitus Status: Acute (4) Pneumonia due to aerobic bacteria Status: Acute
--- NOTE | 2016-09-22 13:12 | PSY.TMCNF ---
Nursing - Vital Signs Vital Signs (Last 8 hours): Vital Signs 09/22/16 09/22/16 09/22/16 08:08 08:31 09:00 Temperature 97.5 F L 97.5 F L Pulse Rate 76 76 Respiratory 22 22 Rate Blood Pressure 130/68 130/68 130/68 O2 Sat by Pulse 97 Oximetry Pain: 0 - Precautions: Precautions: Fall Prevention Isolation: Contact, Droplet - Medications/Other Issues Comment: Pt at moderate nutritional risk. goals: 1. Pt to consume 75-100% of meals. 2. Blood glucoses to be between 70-180 mg/dl. Follow-up due on 2016 - Consults Comment: Dr. Garza, Dr. Argueta - Skin Incision Site: Right BKA Stump Dressing Status: Clean, Dry, Intact Incision: Dian Intact, Sutures Intact, No Odor Incision Line Treatment: Cleanse with NSS and cover with Xeroform , dry dressing and Esteban. - Wound Left Lower Abdomen Wound Type: Other Wound Shape: Irregular Wound Length: 1.5 Wound Width: 1.3 Periwound: Reddened Wound Drainage Amount: Moderate Wound Drainage Description: Serosanguineous Wound General Appearance: Draining Wound Dressing Status: Dry & Intact Dressing Changed: No Wound Packing Type: Not applicable - Toileting Toileting: Moderate Assistance - Bladder Management Bladder Pattern: Normal Voiding Method: Urinal Bladder Management: Supervision Frequency of Accidents: 0 - Bowel Management Bowel Pattern: Constipated Bowel Management: Supervision Frequency of Accidents: 0 - Transfers Transfers: Maximal Assistance - ADL's ADL's: Moderate Assistance - Pain Management Comments: Oxycontin 20mg q8h - Patient/Family Teaching Comments: Care post BKA and safety precautions. Droplet and contact precautions - Goals/Time Frame Comments: Per multidisciplinary care plan and goals Physical Therapy - Bed Mobility Bed Mobility: Supervision, Verbal Cues, Contact Guard - Transfers Wheelchair to Mat: Verbal Cues, Maximum Assistance Sit to Stand: Verbal Cues, Moderate Assistance Comment: wall bar. modified lateral stand pivot squat transfer - Ambulation Comment: not a primary goal at this time; focusing on standing tolerance. -mod to max A at wall bar to maintain and attain - Stair Negotiation Stairs: Level of Assistance: Not Tested - Standing Balance Static Stand: Moderate Assistance Dynamic Stand: Unable to assess/perform Comment: wall ba - Pain Management Techniques: Medication - Insight/Carryover Insight/Carryover: Fair - Patient/Family Education Comment: safety,mobility, pre-prosthetic training, desensitization, positioning , transfers, therapy schedule, therapy goals, POC, contact precautions, droplet precautions, hand washing, ADLs, ther act - Assessment/Plan Assessment: Pt is encouraged to participate in recreation therapy sessions. Pt presents with fatigue at times and engages in conversations at bedside. Pt's participation is limited by isolation precautions and decrease visual awareness. Pt would benefit from recreation therapy sessions to improve memory, arousal level, and receive leisure education. - Goals Timeframe: 2 weeks Goals: WILL COMPLETE SELF PROPULSION W W/C W MOD I. WILL COMPLETE ALL W/C MANGAEMENT WITH MOD I. WILL COMPLETE SPT TO/FORM ALL SURFACES WITH MOD I. WILL COMPLETE GROOMING WITH INDEPENDENCE. WILL COMPLETE FEEDING WITH INDEPENDENCE. WILL COMPLETE SKIN INSPECTION WITH MOD I. WILL COMPLETE ALL DRESSING WITH MOD I - Provider Therapist: Damaris SCHULZ RN CRRN Occupational Therapy - Arousal/Attention/Orientation Patient Orientation: Person, Place, Time, Appropriate to Age, Appropriate to Situation - ADL/IADL Self Feeding: Modified Independent Grooming: Supervision, Set-up Help Bathing-Upper Extremity: Minimal Assistance Bathing-Lower Extremity: Moderate Assistance Dressing-Upper Extremity: Supervision, Set-up Help Dressing-Lower Extremity: Set-up Help, Moderate Assistance - Sitting Balance Static Sitting: Supervision Dynamic Sitting: Contact Guard Assist - Transfers Wheelchair to Bed Transfers: Minimal Assistance, Moderate Assistance Toilet Transfers: Moderate Assistance Tub Transfers: Moderate Assistance Comment: Trialed lateral/squat pivot transfers as well as transfers with transfer board. -transfer board transfers bed<> wheelchair <> drop arm commode with min assist. -lateral and squat pivot transfers bed <>wheelchair <> drop arm commode with min/mod assist - Wheelchair Management Level of Assistance: Supervision Distance (ft.): 50 - Upper Extremity Status Right Upper Extremity Comment: AROM WFL. 4-/5 t/o. Left Upper Extremity Comment: AROM limited with shoulder extension/external rotaion, elbow extension and finger extension 3-5th fingers. PROM in agreement with limitations in these areas. Pt reported this is a result from his CVA. Pt reports he has a brace for LUE and this therapist asked Pt to bring in to evaluate. Pt's LUE at least 2-/5 to 3-/5 throughout - Pain Alleviating Techniques: Medication - Insight/Carryover Insight/Carryover: Fair - Patient/Family Education Comment: safety,mobility, pre-prosthetic training, desensitization, positioning , transfers, therapy schedule, therapy goals, POC, contact precautions, droplet precautions, hand washing, ADLs, ther act - Assessment/Plan Assessment: Pt is encouraged to participate in recreation therapy sessions. Pt presents with fatigue at times and engages in conversations at bedside. Pt's participation is limited by isolation precautions and decrease visual awareness. Pt would benefit from recreation therapy sessions to improve memory, arousal level, and receive leisure education. - Goals Timeframe: 2 weeks Goals: WILL COMPLETE SELF PROPULSION W W/C W MOD I. WILL COMPLETE ALL W/C MANGAEMENT WITH MOD I. WILL COMPLETE SPT TO/FORM ALL SURFACES WITH MOD I. WILL COMPLETE GROOMING WITH INDEPENDENCE. WILL COMPLETE FEEDING WITH INDEPENDENCE. WILL COMPLETE SKIN INSPECTION WITH MOD I. WILL COMPLETE ALL DRESSING WITH MOD I - Provider Therapist: Oriana IRENE License Number: [id number] Speech Therapy - Plan Assessment: Pt is encouraged to participate in recreation therapy sessions. Pt presents with fatigue at times and engages in conversations at bedside. Pt's participation is limited by isolation precautions and decrease visual awareness. Pt would benefit from recreation therapy sessions to improve memory, arousal level, and receive leisure education. Recreational Therapy - Participation Participation: Participates in Individual and/or Group Sessions - Attendance Attendance: Daily - Activities Leisure Activities: Socializing - Socialization Level of Socialization: Initiates/interacts freely with care givers and peer - Diversional Time Diversional Time: television - Assessment Assessment/Plan: Pt is encouraged to participate in recreation therapy sessions. Pt presents with fatigue at times and engages in conversations at bedside. Pt's participation is limited by isolation precautions and decrease visual awareness. Pt would benefit from recreation therapy sessions to improve memory, arousal level, and receive leisure education. Problems Currently Limiting Participation: R eye blindness, decrease visual awareness in L eye, currently on droplet and contact precautions, decrease leisure awareness level Goals and Time Frame: Pt will be encouraged to participate in 1:1 and group recreation therapy sessions 3-5x week to improve leisure awareness level, arousal level, and receive leisure education for support groups and activities. - Provider Therapist: Georgiana Manrique, [employer] #[id number] Nutrition - Current Diet Current Diet/ Supplement/ Feedings: Moderate consistent CHO heart healthy - Appetite Percent Meal Consumed: 75-100% - Comments Comments: Care post BKA and safety precautions. Droplet and contact precautions - Assessment/Goals/Time Frame Assessment/Goals/Time Frame: Pt at moderate nutritional risk. goals: 1. Pt to consume 75-100% of meals. 2. Blood glucoses to be between 70-180 mg/dl. Follow-up due on 09/25/2016 - Provider Provider: Citlalli Ovalle RD Case Management - Discharge Plan Discharge Plan: Subacute care Rehabilitation Plan - Treatment Plan Treatment Plan: Physical Therapy, Occupational Therapy, Dietary, Pain Management , Wound Care, Patient/Family Education - Discharge Plan Estimated Date of Discharge: 10/04/16 Discharge to: Subacute
--- NOTE | 2016-09-22 17:29 | US ---
PROCEDURE: Duplex ultrasound of the left lower extremity arteries. HISTORY: evaluate circulation Relevant surgical history: Right below-knee amputation. . COMPARISON: None available. TECHNIQUE: Grayscale and duplex Doppler evaluation of the bilateral common femoral, superficial femoral, popliteal, posterior tibial and dorsalis pedis arteries was performed.. FINDINGS: LEFT LOWER EXTREMITY: LEFT COMMON FEMORAL ARTERY: Widely patent. Maximal flow velocity of 154 cm/s. LEFT SUPERFICIAL FEMORAL ARTERY: Widely patent. Maximal flow velocity of 45 cm/s. Considerable drop-off in ends peak systolic velocities between the right common femoral artery and superficial femoral artery proximally. LEFT POPLITEAL ARTERY:Widely patent. Maximal flow velocity of 39 cm/s. LEFT POSTERIOR TIBIAL ARTERY: Widely patent. Maximal flow velocity of 28.4 cm/s. LEFT DORSALIS PEDIS ARTERY: Widely patent. Maximal flow velocity of 27.0 cm/s. OTHER FINDINGS: None. IMPRESSION: Atherosclerotic disease in the left lower extremity without focal/ critical stenoses. Adequate/ satisfactory flow documented in the calf and dorsalis pedis arteries.
--- NOTE | 2016-09-22 18:50 | CP.PCM.PN ---
Subjective - Date & Time of Evaluation Date of Evaluation: 09/22/16 Time of Evaluation: 18:50 - Subjective Subjective: Patient seen in room not taking the prn meds now for pain and covered with the long acting med discussed progress and his need for more endurance and strength and I have started Oxandrin to help this Objective - Vital Signs/Intake and Output Vital Signs (last 24 hours): Temp Pulse Resp BP Pulse Ox 97.5 F L 84 20 130/65 95 09/22/16 09:00 09/22/16 16:08 09/22/16 16:08 09/22/16 16:08 09/22/16 14:13 - Medications Medications: Current Medications Acetaminophen (Tylenol 325mg Tab) 650 mg PO Q6 PRN PRN Reason: Fever >100.4 F Al Hydrox/Mg Hydrox/Simethicone (Maalox Plus 30 Ml) 30 ml PO Q6H PRN PRN Reason: Indigestion / Heartburn Last Admin: 09/21/16 23:40 Dose: 30 ml Albuterol/Ipratropium (Duoneb 3 Mg/0.5 Mg (3 Ml) Ud) 3 ml INH RQID [facility] Last Admin: 09/22/16 16:16 Dose: 3 ml Amiodarone HCl (Cordarone) 200 mg PO 2200 [facility] Last Admin: 09/21/16 21:44 Dose: 200 mg Clotrimazole (Lotrimin 1% Cream) 1 applic TOP BID [facility] Last Admin: 09/22/16 17:06 Dose: 1 applic Docusate Sodium (Colace) 100 mg PO TID [facility] Last Admin: 09/22/16 17:06 Dose: 100 mg Furosemide (Lasix) 20 mg PO DAILY [facility] Last Admin: 09/22/16 08:31 Dose: 20 mg Glipizide (Glucotrol Xl) 5 mg PO BRK [facility] Last Admin: 09/22/16 08:30 Dose: 5 mg Heparin Sodium (Porcine) (Heparin) 5,000 units SC Q12 [facility] PRN Reason: Protocol Last Admin: 09/22/16 08:30 Dose: 5,000 units Hydromorphone HCl (Dilaudid) 2 mg PO Q4 PRN PRN Reason: pain (4-8) Hydromorphone HCl (Dilaudid) 4 mg PO Q4 PRN PRN Reason: pain (9-10) Tigecycline 50 mg/ Sodium (Chloride) 100 mls @ 100 mls/hr IV Q12@0900,2100 [facility] Last Admin: 09/22/16 08:28 Dose: 100 mls/hr Insulin Detemir (Levemir) 30 units SC HS [facility] Insulin Human Lispro (Humalog) 0 units SC ACHS [facility] PRN Reason: Protocol Last Admin: 09/22/16 17:07 Dose: 2 units Lactobacillus Acidophilus (Bacid Acidophilus) 1 cap PO BID [facility] Last Admin: 09/22/16 17:04 Dose: 1 cap Lactulose (Enulose) 20 gm PO DAILY PRN PRN Reason: Constipation Last Admin: 09/22/16 17:06 Dose: 20 gm Loratadine (Claritin) 10 mg PO DAILY [facility] Last Admin: 09/22/16 08:29 Dose: 10 mg Lorazepam (Ativan) 1 mg PO BID PRN PRN Reason: for anxiety Ondansetron HCl (Zofran Inj) 4 mg IVP Q4H PRN PRN Reason: Nausea/Vomiting Oxandrolone (Oxandrin) 5 mg PO BID [facility] Last Admin: 09/22/16 17:08 Dose: 5 mg Oxycodone HCl (Oxycontin Extended Release Tab) 20 mg PO Q8 [facility] Last Admin: 09/22/16 13:04 Dose: 20 mg Pantoprazole Sodium (Protonix Ec Tab) 40 mg PO DAILY [facility] Last Admin: 09/22/16 08:30 Dose: 40 mg Pioglitazone HCl (Actos) 30 mg PO DAILY [facility] Last Admin: 09/22/16 08:30 Dose: 30 mg Fluticasone/Salmeterol (Advair Diskus 500/50) 1 puff INH RBID [facility] Last Admin: 09/22/16 08:29 Dose: 1 puff Senna/Docusate Sodium (Senokot S 50 Mg-8.6 Mg) 2 tab PO HS [facility] Last Admin: 09/21/16 22:04 Dose: 2 tab Sitagliptin Phosphate (Januvia) 25 mg PO DAILY [facility] Last Admin: 09/22/16 08:30 Dose: 25 mg - Labs Labs: 09/21/16 06:58 09/21/16 10:25
[2016-09-22] MEDS: Docusate-Senna 50 mg-8.6 mg Tab PO SCH (21:20)
[2016-09-22] MEDS: Insulin Detemir 100 Units/ml Inj SC SCH (21:22)
[2016-09-23] MEDS: oxyCODONE 20 mg ER Tab (oxyCONTIN) PO SCH ×3 (05:56→21:38)
[2016-09-23] MEDS: Alum-Mag Hydrox-Simethicone Susp (30 mL) PO PRN (06:17)
[2016-09-23] MEDS: Insulin Lispro (humaLOG) 100 Units/ml Inj SC SCH ×4 (06:33→21:54)
[2016-09-23] MEDS: Albuterol-Ipratrop 3 mg / 0.5 (3 ml) UD INH SCH ×4 (07:21→19:50)
[2016-09-23 08:15] LABS: BILIRUBIN,TOTAL 0.5 mg/dl (0.2-1.3); CALCIUM 8.2 mg/dL (8.4-10.2); TOTAL PROTEIN 6.8 G/DL (6.3-8.2)
[2016-09-23 08:19] LABS: BASO % 0.2 % (0.0-2.0); EOS # 0.1 K/uL (0.0-0.7); EOS % 0.5 % (0.0-4.0); HEMATOCRIT 28.8 % (35.0-51.0); LYMPH % 5.2 % (20.0-40.0); MEAN CELL VOLUME 87.2 fl (80.0-94.0); MEAN CORPUSCULAR HEMOGLOBIN 28.6 pg (27.0-31.0); MEAN CORPUSCULAR HGB CONC 32.8 g/dL (33.0-37.0); MEAN PLATELET VOLUME 7.4 fl (7.2-11.7); MONO # 1.1 K/uL (0.0-0.8); MONO % 5.9 % (0.0-10.0); NEUT # 16.5 K/uL (1.8-7.0); NEUT % 88.2 % (50.0-75.0); PLATELET COUNT 343 K/uL (130-400); RED CELL DISTRIBUTION WIDTH 15.8 % (11.5-14.5); WHITE BLOOD COUNT 18.6 K/uL (4.8-10.8)
[2016-09-23] MEDS: Fluticasone-Salmeterol 500-50mcg Diskus INH SCH ×2 (08:25→21:35)
[2016-09-23] MEDS: GlipiZIDE 5 mg SR Tab PO SCH (08:26)
[2016-09-23] MEDS: Pantoprazole 40 mg EC Tab PO SCH (08:26)
[2016-09-23 08:27] LABS: ALB/GLOB RATIO 0.5 (1.0-2.1)
[2016-09-23] MEDS: Lactobacillus Acidophilus 500 MU Cap PO SCH ×2 (08:28→17:28)
[2016-09-23 09:59] LABS: METAMYELOCYTE 1 % (0-0); NEUTROPHIL 95 % (42-75); TOTAL CELLS COUNTED 100
--- NOTE | 2016-09-23 12:27 | CP.PCM.PCO ---
Physician Communication Note - Physician Communication Note Physician Communication Note: recommend pulmonary eval
[2016-09-23] MEDS: Docusate-Senna 50 mg-8.6 mg Tab PO SCH (21:37)
[2016-09-23] MEDS: Insulin Detemir 100 Units/ml Inj SC SCH (21:52)
[2016-09-24] MEDS ORDERED: Dextrose 50% SYRINGE Inj (50 ml) IVP ONE (06:13)
--- NOTE | 2016-09-24 06:15 | CP.PCM.PCO ---
Physician Communication Note - Physician Communication Note Physician Communication Note: Citlalli Arguelles Addendum Addendum: 09/24/16 06:14 Called for FS-47 in NPO pt. He is alert and oriented. - D50 x1 ordered - Repeat BS in 1 hr - Nurse informed
[2016-09-24] MEDS: oxyCODONE 20 mg ER Tab (oxyCONTIN) PO SCH ×3 (07:20→21:16)
[2016-09-24] MEDS: Insulin Lispro (humaLOG) 100 Units/ml Inj SC SCH ×4 (07:20→22:25)
[2016-09-24] MEDS: Albuterol-Ipratrop 3 mg / 0.5 (3 ml) UD INH SCH ×4 (07:30→19:44)
--- NOTE | 2016-09-24 09:23 | US ---
HISTORY: High ALP COMPARISON: None. TECHNIQUE: Grayscale imaging was performed. FINDINGS: LIVER: Measures 18.6 cm in length. Normal echogenicity of the liver parenchyma. No mass. No intrahepatic bile duct dilatation. GALLBLADDER: The gallbladder is not well distended. No gallstones or pericholecystic fluid. The sonographic Elliott sign is negative. COMMON BILE DUCT: Measures 8.2 mm. No stones. No dilatation. PANCREAS: Unremarkable as visualized. No mass. No ductal dilatation. RIGHT KIDNEY: Measures 12.5 cm in length. Normal echogenicity. No calculus, mass, or hydronephrosis. AORTA: No aneurysmal dilatation. IVC: Unremarkable. OTHER FINDINGS: None . IMPRESSION: 1. Mild hepatomegaly. 2. Mild dilatation of the common bile duct without sonographic evidence for choledocholithiasis.
[2016-09-24] MEDS: GlipiZIDE 5 mg SR Tab PO SCH (09:52)
[2016-09-24] MEDS: Pantoprazole 40 mg EC Tab PO SCH (09:52)
[2016-09-24] MEDS: Fluticasone-Salmeterol 500-50mcg Diskus INH SCH ×2 (09:52→21:14)
[2016-09-24] MEDS: Lactobacillus Acidophilus 500 MU Cap PO SCH ×2 (09:52→17:19)
[2016-09-24] MEDS: Nystatin 100,000 Units/ml Oral Susp 5 ml UD PO SCH ×2 (13:56→17:19)
--- NOTE | 2016-09-24 19:19 | CP.PCM.PN ---
Subjective - Date & Time of Evaluation Date of Evaluation: 09/24/16 Time of Evaluation: 19:19 - Subjective Subjective: Patient seen in room pain controlled looks better good apptite no bowel issue will team next week to determine d/c plan Objective - Vital Signs/Intake and Output Vital Signs (last 24 hours): Temp Pulse Resp BP Pulse Ox 97.8 F 79 20 133/69 97 09/24/16 16:33 09/24/16 16:33 09/24/16 16:33 09/24/16 16:33 09/23/16 20:10 - Medications Medications: Current Medications Acetaminophen (Tylenol 325mg Tab) 650 mg PO Q6 PRN PRN Reason: Fever >100.4 F Al Hydrox/Mg Hydrox/Simethicone (Maalox Plus 30 Ml) 30 ml PO Q6H PRN PRN Reason: Indigestion / Heartburn Last Admin: 09/23/16 06:17 Dose: 30 ml Albuterol/Ipratropium (Duoneb 3 Mg/0.5 Mg (3 Ml) Ud) 3 ml INH RQID [facility] Last Admin: 09/24/16 16:20 Dose: 3 ml Amiodarone HCl (Cordarone) 200 mg PO 2200 [facility] Last Admin: 09/23/16 21:40 Dose: 200 mg Clopidogrel Bisulfate (Plavix) 75 mg PO DAILY [facility] Last Admin: 09/24/16 09:52 Dose: 75 mg Clotrimazole (Lotrimin 1% Cream) 1 applic TOP BID [facility] Last Admin: 09/24/16 17:20 Dose: 1 applic Docusate Sodium (Colace) 100 mg PO TID [facility] Last Admin: 09/24/16 17:20 Dose: 100 mg Glipizide (Glucotrol Xl) 5 mg PO BRK [facility] Last Admin: 09/24/16 09:52 Dose: 5 mg Hydromorphone HCl (Dilaudid) 2 mg PO Q4 PRN PRN Reason: pain (4-8) Last Admin: 09/24/16 09:53 Dose: 2 mg Hydromorphone HCl (Dilaudid) 4 mg PO Q4 PRN PRN Reason: pain (9-10) Tigecycline 50 mg/ Sodium (Chloride) 100 mls @ 100 mls/hr IV Q12@0900,2100 [facility] Last Admin: 09/24/16 09:54 Dose: 100 mls/hr Insulin Detemir (Levemir) 20 units SC [facility] Insulin Human Lispro (Humalog) 0 units SC [facility] PRN Reason: Protocol Last Admin: 09/24/16 17:19 Dose: 6 units Lactobacillus Acidophilus (Bacid Acidophilus) 1 cap PO BID [facility] Last Admin: 09/24/16 17:19 Dose: 1 cap Lactulose (Enulose) 20 gm PO DAILY PRN PRN Reason: Constipation Last Admin: 09/22/16 17:06 Dose: 20 gm Loratadine (Claritin) 10 mg PO DAILY [facility] Last Admin: 09/24/16 09:53 Dose: 10 mg Lorazepam (Ativan) 1 mg PO BID PRN PRN Reason: for anxiety Nystatin (Nystatin Oral Susp) 5 ml PO TID [facility] Last Admin: 09/24/16 17:19 Dose: 5 ml Ondansetron HCl (Zofran Inj) 4 mg IVP Q4H PRN PRN Reason: Nausea/Vomiting Oxandrolone (Oxandrin) 5 mg PO BID [facility] Last Admin: 09/24/16 17:20 Dose: 5 mg Oxycodone HCl (Oxycontin Extended Release Tab) 20 mg PO Q8 [facility] Last Admin: 09/24/16 13:57 Dose: 20 mg Pantoprazole Sodium (Protonix Ec Tab) 40 mg PO DAILY [facility] Last Admin: 09/24/16 09:52 Dose: 40 mg Pioglitazone HCl (Actos) 30 mg PO DAILY [facility] Last Admin: 09/24/16 09:53 Dose: 30 mg Fluticasone/Salmeterol (Advair Diskus 500/50) 1 puff INH RBID [facility] Last Admin: 09/24/16 09:52 Dose: 1 puff Senna/Docusate Sodium (Senokot S 50 Mg-8.6 Mg) 2 tab PO HS [facility] Last Admin: 09/23/16 21:37 Dose: 2 tab Sitagliptin Phosphate (Januvia) 25 mg PO DAILY [facility] Last Admin: 09/24/16 09:53 Dose: 25 mg - Labs Labs: 09/23/16 05:25 09/23/16 05:25
[2016-09-24] MEDS: Docusate-Senna 50 mg-8.6 mg Tab PO SCH (21:20)
[2016-09-24] MEDS ORDERED: Insulin Detemir 100 Units/ml Inj SC SCH (22:00)
[2016-09-24 22:01] LABS: CA 19-9 99.2 U/mL (0-37)
[2016-09-25] MEDS: Alum-Mag Hydrox-Simethicone Susp (30 mL) PO PRN (02:59)
[2016-09-25] MEDS: oxyCODONE 20 mg ER Tab (oxyCONTIN) PO SCH ×4 (06:07→21:55)
[2016-09-25] MEDS: Insulin Lispro (humaLOG) 100 Units/ml Inj SC SCH ×4 (07:27→21:49)
[2016-09-25] MEDS: Albuterol-Ipratrop 3 mg / 0.5 (3 ml) UD INH SCH ×4 (07:53→19:29)
--- NOTE | 2016-09-25 08:04 | CP.PCM.CON ---
History of Present Illness - History of Present Illness History of Present Illness: Pt is a 61 year old male admitted to [facility] and referred to the medical underwriter for go. Med history positive for recent amputation, DM, HTN, Afib, CVA, diverticulitis, ulcerated leg. See medical record for complete medical history and list of medications. Social Hx: pt lives with of 3-+ years. He has two children also in the home. Pt reported very positive relationships with family members. ed.Voc: pt raised [place] the [place], graduate HS, and had some college. He had multiple jobs, security, computers, school bus driver. Psych: pt reported seeing Dr. Patino in the community with Ativan prescribed. Pt denied a history of alcohol/substance abuse. HE reported sressors and dysphoria with increased restriction in his lifestyle prior to admission, compounded by his recent amputation and medical status. Pt spoke of sadness with his amputation, his desire for a speedy recovery/prosthetic and return to lifestyle/family . MSE: Pt alert, oriented x3, relevant/coherent, no psychosis, affect constricted , pt irritable/negative, dysphoric, no si no hi ideation. Dx: Adjustment Dx plan: Continued Sup therapy 7:40-8 Past Patient History - Infectious Disease Hx of Infectious Diseases: None, C.diff - Tetanus Immunizations Tetanus Immunization: Unknown - Past Medical History & Family History Past Medical History?: Yes - Past Social History Smoking Status: Never Smoked Chewing Tobacco Use: No Cigar Use: No Alcohol: None Drugs: Denies Home Situation {Lives}: With Family - CARDIAC Hx Cardiac Disorders: Yes (afib) Hx Congestive Heart Failure: Yes (2012) Hx Hypercholesterolemia: Yes Hx Hypertension: Yes - PULMONARY Hx Pneumonia: Yes - NEUROLOGICAL HX Cerebrovascular Accident: Yes (pt reports minimal left sided weakness 2012) - HEENT Hx Cataracts: Yes (Left Eye iol) - RENAL Hx Chronic Kidney Disease: Yes - ENDOCRINE/METABOLIC Hx Diabetes Mellitus Type 2: Yes - HEMATOLOGICAL/ONCOLOGICAL Hx Anemia: Yes - MUSCULOSKELETAL/RHEUMATOLOGICAL Hx Osteomyelitis: Yes (right foot) Other/Comment: RT FOOT SX DECEMBER 2015 amp all 5 toes - GASTROINTESTINAL Hx Diverticulitis: Yes - GENITOURINARY/GYNECOLOGICAL Hx Genitourinary Disorders: No - PSYCHIATRIC Hx Depression: Yes Hx Substance Use: No - SURGICAL HISTORY Hx Appendectomy: Yes (30 Yrs. ago.) - ANESTHESIA Hx Anesthesia Reactions: Yes (hallucinations x 20 minutes post op toe amputation ) Meds Allergies/Adverse Reactions: Allergies Allergy/AdvReac Type Severity Reaction Status Date / Time clindamycin Allergy Intermediate RASH Verified 09/05/16 07:43 duloxetine HCl Allergy Intermediate tachycardia Verified 09/05/16 07:43 [From Cymbalta] - Medications Medications: Current Medications Acetaminophen (Tylenol 325mg Tab) 650 mg PO Q6 PRN PRN Reason: Fever >100.4 F Al Hydrox/Mg Hydrox/Simethicone (Maalox Plus 30 Ml) 30 ml PO Q6H PRN PRN Reason: Indigestion / Heartburn Last Admin: 09/25/16 02:59 Dose: 30 ml Albuterol/Ipratropium (Duoneb 3 Mg/0.5 Mg (3 Ml) Ud) 3 ml INH RQID [facility] Last Admin: 09/25/16 07:53 Dose: 3 ml Amiodarone HCl (Cordarone) 200 mg PO 2200 [facility] Last Admin: 09/24/16 21:19 Dose: 200 mg Clopidogrel Bisulfate (Plavix) 75 mg PO DAILY [facility] Last Admin: 09/24/16 09:52 Dose: 75 mg Clotrimazole (Lotrimin 1% Cream) 1 applic TOP BID [facility] Last Admin: 09/24/16 17:20 Dose: 1 applic Docusate Sodium (Colace) 100 mg PO TID [facility] Last Admin: 09/24/16 17:20 Dose: 100 mg Glipizide (Glucotrol Xl) 5 mg PO BRK [facility] Last Admin: 09/24/16 09:52 Dose: 5 mg Hydromorphone HCl (Dilaudid) 2 mg PO Q4 PRN PRN Reason: pain (4-8) Last Admin: 09/24/16 09:53 Dose: 2 mg Hydromorphone HCl (Dilaudid) 4 mg PO Q4 PRN PRN Reason: pain (9-10) Tigecycline 50 mg/ Sodium (Chloride) 100 mls @ 100 mls/hr IV Q12@0900,2100 [facility] Last Admin: 09/24/16 21:14 Dose: 100 mls/hr Insulin Detemir (Levemir) 20 units SC HS [facility] Last Admin: 09/24/16 22:23 Dose: 20 units Insulin Human Lispro (Humalog) 0 units SC [facility] PRN Reason: Protocol Last Admin: 09/25/16 07:27 Dose: 2 units Lactobacillus Acidophilus (Bacid Acidophilus) 1 cap PO BID [facility] Last Admin: 09/24/16 17:19 Dose: 1 cap Lactulose (Enulose) 20 gm PO DAILY PRN PRN Reason: Constipation Last Admin: 09/22/16 17:06 Dose: 20 gm Loratadine (Claritin) 10 mg PO DAILY [facility] Last Admin: 09/24/16 09:53 Dose: 10 mg Lorazepam (Ativan) 1 mg PO BID PRN PRN Reason: for anxiety Nystatin (Nystatin Oral Susp) 5 ml PO TID [facility] Last Admin: 09/24/16 17:19 Dose: 5 ml Ondansetron HCl (Zofran Inj) 4 mg IVP Q4H PRN PRN Reason: Nausea/Vomiting Oxandrolone (Oxandrin) 5 mg PO BID [facility] Last Admin: 09/24/16 17:20 Dose: 5 mg Oxycodone HCl (Oxycontin Extended Release Tab) 20 mg PO Q8 [facility] Last Admin: 09/25/16 06:07 Dose: 20 mg Pantoprazole Sodium (Protonix Ec Tab) 40 mg PO DAILY [facility] Last Admin: 09/24/16 09:52 Dose: 40 mg Pioglitazone HCl (Actos) 30 mg PO DAILY [facility] Last Admin: 09/24/16 09:53 Dose: 30 mg Fluticasone/Salmeterol (Advair Diskus 500/50) 1 puff INH RBID [facility] Last Admin: 09/24/16 21:14 Dose: 1 puff Senna/Docusate Sodium (Senokot S 50 Mg-8.6 Mg) 2 tab PO HS [facility] Last Admin: 09/24/16 21:20 Dose: 2 tab Sitagliptin Phosphate (Januvia) 25 mg PO DAILY [facility] Last Admin: 09/24/16 09:53 Dose: 25 mg Results - Vital Signs Recent Vital Signs: Last Vital Signs Temp 97.7 F 09/24/16 19:29 Pulse 80 09/24/16 21:19 Resp 20 09/24/16 19:29 BP 130/65 09/24/16 21:19 Pulse Ox 97 09/23/16 20:10 - Labs Result Diagrams: 09/23/16 05:25 09/23/16 05:25 Labs: Laboratory Results - last 24 hr 09/24/16 09/24/16 09/24/16 07:29 12:29 16:22 POC Glucose (mg/dL) 150 H 271 H GGT 68 Alpha Fetoprotein < 0.8 CA 19-9 Antigen 99.2 H 09/24/16 09/24/16 09/25/16 21:32 22:21 06:14 POC Glucose (mg/dL) 77 110 186 H GGT Alpha Fetoprotein CA 19-9 Antigen
[2016-09-25] MEDS: Fluticasone-Salmeterol 500-50mcg Diskus INH SCH ×2 (08:53→20:00)
[2016-09-25] MEDS: GlipiZIDE 5 mg SR Tab PO SCH (08:53)
[2016-09-25] MEDS: Lactobacillus Acidophilus 500 MU Cap PO SCH ×2 (08:53→16:47)
[2016-09-25] MEDS: Nystatin 100,000 Units/ml Oral Susp 5 ml UD PO SCH ×3 (08:55→16:43)
[2016-09-25] MEDS: Pantoprazole 40 mg EC Tab PO SCH (08:55)
[2016-09-25] MEDS ORDERED: Sodium Chloride 3% for Inhalation 4 ML VIAL.NEB IH PRN ×2 (13:14→13:32)
--- NOTE | 2016-09-25 13:30 | CP.PCM.PN ---
Subjective - Date & Time of Evaluation Date of Evaluation: 09/25/16 Time of Evaluation: 07:00 - Subjective Subjective: looks sicker + cough/ congestion\ rales at bases CRE from abd wound belly soft recc avycaz transfer to medical floor ? Objective - Vital Signs/Intake and Output Vital Signs (last 24 hours): Temp Pulse Resp BP Pulse Ox 97.7 F 80 20 130/65 97 09/24/16 19:29 09/24/16 21:19 09/24/16 19:29 09/24/16 21:19 09/23/16 20:10 - Medications Medications: Current Medications Acetaminophen (Tylenol 325mg Tab) 650 mg PO Q6 PRN PRN Reason: Fever >100.4 F Al Hydrox/Mg Hydrox/Simethicone (Maalox Plus 30 Ml) 30 ml PO Q6H PRN PRN Reason: Indigestion / Heartburn Last Admin: 09/25/16 02:59 Dose: 30 ml Albuterol/Ipratropium (Duoneb 3 Mg/0.5 Mg (3 Ml) Ud) 3 ml INH RQID [facility] Last Admin: 09/25/16 11:26 Dose: Not Given Amiodarone HCl (Cordarone) 200 mg PO 2200 [facility] Last Admin: 09/24/16 21:19 Dose: 200 mg Clopidogrel Bisulfate (Plavix) 75 mg PO DAILY [facility] Last Admin: 09/25/16 08:54 Dose: 75 mg Clotrimazole (Lotrimin 1% Cream) 1 applic TOP BID [facility] Last Admin: 09/25/16 08:52 Dose: 1 applic Docusate Sodium (Colace) 100 mg PO TID [facility] Last Admin: 09/25/16 12:08 Dose: 100 mg Escitalopram Oxalate (Lexapro) 10 mg PO HS [facility] Glipizide (Glucotrol Xl) 5 mg PO BRK [facility] Last Admin: 09/25/16 08:53 Dose: 5 mg Hydromorphone HCl (Dilaudid) 2 mg PO Q4 PRN PRN Reason: pain (4-8) Hydromorphone HCl (Dilaudid) 4 mg PO Q4 PRN PRN Reason: pain (9-10) Ceftazidime/Avibactam 1.25 gm/ (Sodium Chloride) 100 mls @ 100 mls/hr IVPB Q8H [facility] Insulin Detemir (Levemir) 15 units SC [facility] Insulin Human Lispro (Humalog) 0 units SC [facility] PRN Reason: Protocol Last Admin: 09/25/16 12:08 Dose: 10 units Lactobacillus Acidophilus (Bacid Acidophilus) 1 cap PO BID [facility] Last Admin: 09/25/16 08:53 Dose: 1 cap Lactulose (Enulose) 20 gm PO DAILY PRN PRN Reason: Constipation Last Admin: 09/22/16 17:06 Dose: 20 gm Loratadine (Claritin) 10 mg PO DAILY [facility] Last Admin: 09/25/16 08:55 Dose: 10 mg Lorazepam (Ativan) 1 mg PO BID PRN PRN Reason: for anxiety Nystatin (Nystatin Oral Susp) 5 ml PO TID [facility] Last Admin: 09/25/16 12:06 Dose: Not Given Ondansetron HCl (Zofran Inj) 4 mg IVP Q4H PRN PRN Reason: Nausea/Vomiting Oxandrolone (Oxandrin) 5 mg PO BID [facility] Last Admin: 09/25/16 08:52 Dose: 5 mg Oxycodone HCl (Oxycontin Extended Release Tab) 20 mg PO Q8 [facility] Last Admin: 09/25/16 06:07 Dose: 20 mg Pantoprazole Sodium (Protonix Ec Tab) 40 mg PO DAILY [facility] Last Admin: 09/25/16 08:55 Dose: 40 mg Pioglitazone HCl (Actos) 30 mg PO DAILY [facility] Last Admin: 09/25/16 08:53 Dose: 30 mg Fluticasone/Salmeterol (Advair Diskus 500/50) 1 puff INH RBID [facility] Last Admin: 09/25/16 08:53 Dose: 1 puff Senna/Docusate Sodium (Senokot S 50 Mg-8.6 Mg) 2 tab PO HS [facility] Last Admin: 09/24/16 21:20 Dose: 2 tab Sitagliptin Phosphate (Januvia) 25 mg PO DAILY [facility] Last Admin: 09/25/16 08:53 Dose: 25 mg - Labs Labs: 09/23/16 05:25 09/23/16 05:25 Assessment and Plan (1) Abdominal pain Status: Acute (2) Osteomyelitis of foot, acute Status: Acute (3) Uncontrolled diabetes mellitus Status: Acute (4) Pneumonia due to aerobic bacteria Status: Acute
--- NOTE | 2016-09-25 13:33 | CP.PCM.PN ---
Subjective - Date & Time of Evaluation Date of Evaluation: 09/25/16 Time of Evaluation: 13:32 - Subjective Subjective: Patient seen in room still with cough feels weak today pain is controlled still on precautions Objective - Vital Signs/Intake and Output Vital Signs (last 24 hours): Temp Pulse Resp BP Pulse Ox 97.7 F 80 20 130/65 97 09/24/16 19:29 09/24/16 21:19 09/24/16 19:29 09/24/16 21:19 09/23/16 20:10 - Medications Medications: Current Medications Acetaminophen (Tylenol 325mg Tab) 650 mg PO Q6 PRN PRN Reason: Fever >100.4 F Al Hydrox/Mg Hydrox/Simethicone (Maalox Plus 30 Ml) 30 ml PO Q6H PRN PRN Reason: Indigestion / Heartburn Last Admin: 09/25/16 02:59 Dose: 30 ml Albuterol/Ipratropium (Duoneb 3 Mg/0.5 Mg (3 Ml) Ud) 3 ml INH RQID [facility] Last Admin: 09/25/16 11:26 Dose: Not Given Amiodarone HCl (Cordarone) 200 mg PO 2200 [facility] Last Admin: 09/24/16 21:19 Dose: 200 mg Clopidogrel Bisulfate (Plavix) 75 mg PO DAILY [facility] Last Admin: 09/25/16 08:54 Dose: 75 mg Clotrimazole (Lotrimin 1% Cream) 1 applic TOP BID [facility] Last Admin: 09/25/16 08:52 Dose: 1 applic Docusate Sodium (Colace) 100 mg PO TID [facility] Last Admin: 09/25/16 12:08 Dose: 100 mg Escitalopram Oxalate (Lexapro) 10 mg PO HS [facility] Glipizide (Glucotrol Xl) 5 mg PO BRK [facility] Last Admin: 09/25/16 08:53 Dose: 5 mg Hydromorphone HCl (Dilaudid) 2 mg PO Q4 PRN PRN Reason: pain (4-8) Hydromorphone HCl (Dilaudid) 4 mg PO Q4 PRN PRN Reason: pain (9-10) Ceftazidime/Avibactam 1.25 gm/ (Sodium Chloride) 100 mls @ 100 mls/hr IVPB Q8H [facility] Insulin Detemir (Levemir) 15 units SC HS [facility] Insulin Human Lispro (Humalog) 0 units SC ACHS [facility] PRN Reason: Protocol Last Admin: 09/25/16 12:08 Dose: 10 units Lactobacillus Acidophilus (Bacid Acidophilus) 1 cap PO BID [facility] Last Admin: 09/25/16 08:53 Dose: 1 cap Lactulose (Enulose) 20 gm PO DAILY PRN PRN Reason: Constipation Last Admin: 09/22/16 17:06 Dose: 20 gm Loratadine (Claritin) 10 mg PO DAILY [facility] Last Admin: 09/25/16 08:55 Dose: 10 mg Lorazepam (Ativan) 1 mg PO BID PRN PRN Reason: for anxiety Nystatin (Nystatin Oral Susp) 5 ml PO TID [facility] Last Admin: 09/25/16 12:06 Dose: Not Given Ondansetron HCl (Zofran Inj) 4 mg IVP Q4H PRN PRN Reason: Nausea/Vomiting Oxandrolone (Oxandrin) 5 mg PO BID [facility] Last Admin: 09/25/16 08:52 Dose: 5 mg Oxycodone HCl (Oxycontin Extended Release Tab) 20 mg PO Q8 [facility] Last Admin: 09/25/16 06:07 Dose: 20 mg Pantoprazole Sodium (Protonix Ec Tab) 40 mg PO DAILY [facility] Last Admin: 09/25/16 08:55 Dose: 40 mg Pioglitazone HCl (Actos) 30 mg PO DAILY [facility] Last Admin: 09/25/16 08:53 Dose: 30 mg Fluticasone/Salmeterol (Advair Diskus 500/50) 1 puff INH RBID [facility] Last Admin: 09/25/16 08:53 Dose: 1 puff Senna/Docusate Sodium (Senokot S 50 Mg-8.6 Mg) 2 tab PO HS [facility] Last Admin: 09/24/16 21:20 Dose: 2 tab Sitagliptin Phosphate (Januvia) 25 mg PO DAILY [facility] Last Admin: 09/25/16 08:53 Dose: 25 mg - Labs Labs: 09/23/16 05:25 09/23/16 05:25
--- NOTE | 2016-09-25 14:48 | CON ---
DATE: 09/25/2016 REFERRING PHYSICIAN: Dr. Love. REASON FOR CONSULTATION: Elevated alk phosphatase. HISTORY OF PRESENT ILLNESS: This is a pleasant 61-year-old man essentially on rehab. He had a recen t amputation, has a history of diabetes, hypertension, AFib, CVA, diverticulitis, ulcerated leg, has history of C. 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 The patient is currently sitting up in chair, comfortable, in no apparent distress. GI essentially w as called for elevation in the alkaline phosphatase. PAST MEDICAL HISTORY: As above. PAST SURGICAL HISTORY: As above. REVIEW OF SYSTEMS: All review of systems have been reviewed and negative apart from the HPI. PHYSICAL EXAMINATION: VITAL SIGNS: Here in the hospital grossly unremarkable. GENERAL: This is a pleasant, middle-aged man lying in bed, comfortable, in no apparent distress. HEAD: Normocephalic, atraumatic. EYES: Pupils equally reactive to light bilaterally. No conjunctival pallor or icterus. NECK: Supple, normal range of motion. LUNGS: Coarse breath sounds bilaterally. HEART: S1, S2. Regular rate and rhythm. No murmurs appreciated. ABDOMEN: Soft, nontender. Bowel sounds present. There is a colostomy in the left lower quadrant. No rebound, no guarding. RECTAL: Deferred. EXTREMITIES: Right above-knee amputation. NEUROLOGIC: Alert and oriented x 3. LABORATORY AND RADIOLOGY: Radiology has been reviewed. Labs have been reviewed. WBC is 18.6, hemog lobin is 9.4, sugar is up to ____, alkaline phosphatase was 175. AST, ALT are normal. Bilirubin is normal. Ultrasound shows no acute pathology. ASSESSMENT AND PLAN: This is a 61-year-old man with elevated alkaline phosphatase. I suspect this i s all secondary to bone related. I will order an alk phos isoenzymes. From the gastroenterology sta ndpoint, no further workup is needed. For the CA 19-9 unclear etiology why it is elevated; might be because of his infection. Will consider any further imaging as needed. Thank you for the consult. Greg Osorio MD, PhD cc:Konstantin Love MD [id number] TT: 09/25/2016 14:47:25 Confirmation # [id number] Dictation # [id number]
--- NOTE | 2016-09-25 16:01 | RAD ---
HISTORY: r/o pneumonia COMPARISON: 09/19/2016 FINDINGS: The right PICC line terminates at the cavoatrial junction LUNGS: There is mild pulmonary venous congestion. There is a left retrocardiac opacity. PLEURA: No significant pleural effusion identified, no pneumothorax apparent. CARDIOVASCULAR: The heart is normal in size. OSSEOUS STRUCTURES: No significant abnormalities. VISUALIZED UPPER ABDOMEN: Normal. OTHER FINDINGS: A round retrocardiac opacity may represent a sliding hiatal hernia. IMPRESSION: Left retrocardiac opacity could represent atelectasis however superimposed pneumonia cannot be excluded. Follow-up PA and lateral radiographs are recommended.
[2016-09-25] MEDS: Docusate-Senna 50 mg-8.6 mg Tab PO SCH (21:47)
[2016-09-25] MEDS: Insulin Detemir 100 Units/ml Inj SC SCH (21:48)
[2016-09-26] MEDS: oxyCODONE 20 mg ER Tab (oxyCONTIN) PO SCH ×3 (05:57→21:58)
[2016-09-26] MEDS: Insulin Lispro (humaLOG) 100 Units/ml Inj SC SCH ×4 (07:04→21:54)
[2016-09-26] MEDS: Albuterol-Ipratrop 3 mg / 0.5 (3 ml) UD INH SCH ×4 (07:16→19:17)
[2016-09-26] MEDS: Fluticasone-Salmeterol 500-50mcg Diskus INH SCH ×2 (08:00→21:55)
[2016-09-26 08:18] LABS: BASO % 0.3 % (0.0-2.0); EOS # 0.1 K/uL (0.0-0.7); EOS % 0.4 % (0.0-4.0); HEMATOCRIT 26.6 % (35.0-51.0); LYMPH # 0.9 K/uL (1.0-4.3); LYMPH % 6.1 % (20.0-40.0); MEAN CELL VOLUME 88.4 fl (80.0-94.0); MEAN CORPUSCULAR HEMOGLOBIN 28.4 pg (27.0-31.0); MEAN CORPUSCULAR HGB CONC 32.2 g/dL (33.0-37.0); MONO % 7.1 % (0.0-10.0); NEUT # 12.7 K/uL (1.8-7.0); NEUT % 86.1 % (50.0-75.0); PLATELET COUNT 259 K/uL (130-400); RED CELL DISTRIBUTION WIDTH 15.8 % (11.5-14.5); WHITE BLOOD COUNT 14.8 K/uL (4.8-10.8)
[2016-09-26 08:19] LABS: ALB/GLOB RATIO 0.5 (1.0-2.1); BILIRUBIN,TOTAL 0.6 mg/dl (0.2-1.3); CALCIUM 7.9 mg/dL (8.4-10.2); POTASSIUM 4.9 MMOL/L (3.6-5.0); TOTAL PROTEIN 6.8 G/DL (6.3-8.2)
[2016-09-26] MEDS: GlipiZIDE 5 mg SR Tab PO SCH (09:31)
[2016-09-26] MEDS: Nystatin 100,000 Units/ml Oral Susp 5 ml UD PO SCH ×3 (09:32→17:06)
[2016-09-26] MEDS: Pantoprazole 40 mg EC Tab PO SCH (09:33)
[2016-09-26] MEDS: Lactobacillus Acidophilus 500 MU Cap PO SCH ×2 (09:37→17:04)
[2016-09-26] MEDS ORDERED: Albuterol-Ipratrop 3 mg / 0.5 (3 ml) UD INH ONE (10:08)
[2016-09-26] MEDS ORDERED: Ferrous Sulfate 220 MG/5 ML PO SCH (10:15)
[2016-09-26 12:51] LABS: NEUTROPHIL 87 % (42-75); TOTAL CELLS COUNTED 100
[2016-09-26] MEDS: Insulin Detemir 100 Units/ml Inj SC SCH ×2 (21:56→22:56)
[2016-09-27] MEDS: oxyCODONE 20 mg ER Tab (oxyCONTIN) PO SCH ×3 (06:42→22:17)
[2016-09-27] MEDS: Albuterol-Ipratrop 3 mg / 0.5 (3 ml) UD INH SCH ×4 (07:27→19:26)
[2016-09-27] MEDS: Insulin Lispro (humaLOG) 100 Units/ml Inj SC SCH ×4 (08:06→22:00)
[2016-09-27] MEDS: Fluticasone-Salmeterol 500-50mcg Diskus INH SCH ×2 (08:08→21:05)
[2016-09-27] MEDS: GlipiZIDE 5 mg SR Tab PO SCH ×2 (08:09→17:01)
[2016-09-27] MEDS: Nystatin 100,000 Units/ml Oral Susp 5 ml UD PO SCH ×3 (08:15→17:02)
[2016-09-27] MEDS: Pantoprazole 40 mg EC Tab PO SCH (08:16)
[2016-09-27] MEDS: Lactobacillus Acidophilus 500 MU Cap PO SCH ×2 (08:19→17:01)
[2016-09-27 10:50] LABS: ALKALINE PHOSPHATASE 146 U/L (40-115)
--- NOTE | 2016-09-27 13:40 | CP.PCM.PN ---
Subjective - Date & Time of Evaluation Date of Evaluation: 09/27/16 Time of Evaluation: 08:00 - Subjective Subjective: improving on avycaz await pulm eval cont iv rx till clear Objective - Vital Signs/Intake and Output Vital Signs (last 24 hours): Temp Pulse Resp BP Pulse Ox 98.3 F 78 19 128/76 97 09/27/16 09:42 09/27/16 09:42 09/27/16 09:42 09/27/16 09:42 09/27/16 09:42 - Medications Medications: Current Medications Acetaminophen (Tylenol 325mg Tab) 650 mg PO Q6 PRN PRN Reason: Fever >100.4 F Al Hydrox/Mg Hydrox/Simethicone (Maalox Plus 30 Ml) 30 ml PO Q6H PRN PRN Reason: Indigestion / Heartburn Last Admin: 09/25/16 02:59 Dose: 30 ml Albuterol/Ipratropium (Duoneb 3 Mg/0.5 Mg (3 Ml) Ud) 3 ml INH RQID [facility] Last Admin: 09/27/16 11:13 Dose: 3 ml Amiodarone HCl (Cordarone) 200 mg PO [facility] Clopidogrel Bisulfate (Plavix) 75 mg PO DAILY [facility] Last Admin: 09/27/16 08:14 Dose: 75 mg Clotrimazole (Lotrimin 1% Cream) 1 applic TOP BID [facility] Last Admin: 09/27/16 08:15 Dose: 1 applic Docusate Sodium (Colace) 100 mg PO TID [facility] Last Admin: 09/27/16 12:09 Dose: Not Given Escitalopram Oxalate (Lexapro) 10 mg PO [facility] Last Admin: 09/26/16 21:57 Dose: 10 mg Ferrous Sulfate (Feosol) 325 mg PO BID [facility] Last Admin: 09/27/16 08:15 Dose: 325 mg Glipizide (Glucotrol Xl) 5 mg PO BID [facility] Hydromorphone HCl (Dilaudid) 2 mg PO Q4 PRN PRN Reason: pain (4-8) Hydromorphone HCl (Dilaudid) 4 mg PO Q4 PRN PRN Reason: pain (9-10) Ceftazidime/Avibactam 1.25 gm/ (Sodium Chloride) 100 mls @ 100 mls/hr IVPB Q8H [facility] Last Admin: 09/27/16 06:46 Dose: 100 mls/hr Insulin Detemir (Levemir) 15 units SC HS [facility] Last Admin: 09/26/16 22:56 Dose: Not Given Insulin Human Lispro (Humalog) 0 units SC ACHS [facility] PRN Reason: Protocol Last Admin: 09/27/16 12:20 Dose: 4 units Lactobacillus Acidophilus (Bacid Acidophilus) 1 cap PO BID [facility] Last Admin: 09/27/16 08:19 Dose: 1 cap Lactulose (Enulose) 20 gm PO DAILY PRN PRN Reason: Constipation Last Admin: 09/22/16 17:06 Dose: 20 gm Loratadine (Claritin) 10 mg PO DAILY [facility] Last Admin: 09/27/16 08:15 Dose: 10 mg Lorazepam (Ativan) 1 mg PO BID PRN PRN Reason: for anxiety Metformin HCl (Glucophage) 500 mg PO BIDWM [facility] Nystatin (Nystatin Oral Susp) 5 ml PO TID [facility] Last Admin: 09/27/16 12:21 Dose: Not Given Ondansetron HCl (Zofran Inj) 4 mg IVP Q4H PRN PRN Reason: Nausea/Vomiting Oxandrolone (Oxandrin) 5 mg PO BID [facility] Last Admin: 09/27/16 08:18 Dose: 5 mg Oxycodone HCl (Oxycontin Extended Release Tab) 20 mg PO Q8 [facility] Pantoprazole Sodium (Protonix Ec Tab) 40 mg PO DAILY [facility] Last Admin: 09/27/16 08:16 Dose: 40 mg Pioglitazone HCl (Actos) 30 mg PO DAILY [facility] Last Admin: 09/27/16 08:15 Dose: 30 mg Fluticasone/Salmeterol (Advair Diskus 500/50) 1 puff INH RBID [facility] Last Admin: 09/27/16 08:08 Dose: 1 puff Sitagliptin Phosphate (Januvia) 25 mg PO DAILY [facility] Last Admin: 09/27/16 08:14 Dose: 25 mg Sitagliptin Phosphate (Januvia) 50 mg PO DAILY [facility] - Labs Labs: 09/26/16 06:30 09/26/16 06:30 - Constitutional Appears: Non-toxic, Chronically Ill - Head Exam Head Exam: NORMOCEPHALIC - Eye Exam Eye Exam: PERRL. absent: Scleral icterus - ENT Exam ENT Exam: Mucous Membranes Dry - Neck Exam Neck Exam: absent: Lymphadenopathy - Respiratory Exam Respiratory Exam: Decreased Breath Sounds - Cardiovascular Exam Cardiovascular Exam: REGULAR RHYTHM, +S1, +S2 - Rectal Exam Rectal Exam: Deferred - Exam Exam: NORMAL INSPECTION - Extremities Exam Extremities Exam: Pedal Edema. absent: Calf Tenderness, Tenderness - Back Exam Back Exam: absent: CVA tenderness (L), CVA tenderness (R) Assessment and Plan (1) Abdominal pain Status: Acute (2) Osteomyelitis of foot, acute Status: Acute (3) Uncontrolled diabetes mellitus Status: Acute (4) Pneumonia due to aerobic bacteria Status: Acute
--- NOTE | 2016-09-27 15:55 | CON ---
DATE: 09/27/2016 The patient is a 61-year-old male who is status post right below knee amputation, referred for pulmon zaida evaluation because of pneumonia, shortness of breath, cough, exercise intolerance and thick tenac ious mucus for the past several days. He indicates that symptoms were not present until postop after he was transferred to acute rehab. PAST MEDICAL HISTORY: Diabetes mellitus, coronary artery disease, atrial fibrillation, diverticular disease, severe peripheral vascular disease, chronic kidney disease. FAMILY HISTORY: Nonrevealing. SOCIAL HISTORY: He denies smoking recently, but used to more than 20 years ago. REVIEW OF SYSTEMS: Remarkable for nonhealing right leg ulcer and recurrent leg infections requiring below knee amputation. PHYSICAL EXAMINATION: GENERAL: The patient is alert, oriented, appears to be uncomfortable because of cough. Cough is pro ductive of thick tenacious sputum. VITAL SIGNS: Remarkable for blood pressure of 128/78, pulse of 78, respiratory rate 20 per minute. He is afebrile. O2 sat 97% on nasal cannula oxygen. SKIN: Shows fair turgor. HEENT: Pupils equal and react to light and accommodation. JVP flat. Mouth shows mild mucus engorge ment of pharynx. LUNGS: Fair aeration with scattered bilateral rales. HEART: S1, S2. ABDOMEN: Soft, nontender, no organomegaly. EXTREMITIES: Show right below knee amputation. Left lower extremity appears unremarkable. CENTRAL NERVOUS SYSTEM: Grossly intact. LABORATORY DATA: Remarkable for chest x-ray that shows bilateral pulmonary congestion with retrocard iac density compatible with pneumonia. Wound culture shows Klebsiella. Sputum Gram stain and cultur es so far pending. WBC 14.8, hemoglobin 8.6, platelet count of 259,000. Sodium 135, potassium 4.9, BUN of 43, creatinine 1.6, serum glucose 201. IMPRESSION: The clinical picture is compatible with aspiration pneumonia, status post right below kn ee amputation, diabetes mellitus, poorly controlled, history of peripheral vascular disease, history of coronary artery disease and cardiac arrhythmias. SUGGESTION: To obtain sputum cultures and blood cultures. Infectious disease is already on the case . I agree with present antibiotic therapy. We will continue to follow with you. Neri Pelaez MD cc: [id number] TT: 09/27/2016 15:55:07 Confirmation # [id number] Dictation # [id number]
--- NOTE | 2016-09-28 00:44 | CP.PCM.PN ---
Subjective - Date & Time of Evaluation Date of Evaluation: 09/21/16 Time of Evaluation: 09:30 - Subjective Subjective: patient continues to do well. Has no chest pain or SOB Afberile Has no fever Noted persistently elevated WBC. 19.7 hgb 9.5 BUN 58 creatinine 1.7 Currently on iv antibiotics FBS still elevated. Objective - Vital Signs/Intake and Output Vital Signs (last 24 hours): Temp Pulse Resp BP Pulse Ox 97 F L 84 20 136/64 97 09/27/16 16:30 09/27/16 21:21 09/27/16 16:30 09/27/16 21:21 09/27/16 09:42 - Medications Medications: Current Medications Acetaminophen (Tylenol 325mg Tab) 650 mg PO Q6 PRN PRN Reason: Fever >100.4 F Al Hydrox/Mg Hydrox/Simethicone (Maalox Plus 30 Ml) 30 ml PO Q6H PRN PRN Reason: Indigestion / Heartburn Last Admin: 09/25/16 02:59 Dose: 30 ml Albuterol/Ipratropium (Duoneb 3 Mg/0.5 Mg (3 Ml) Ud) 3 ml INH RQID [facility] Last Admin: 09/27/16 19:26 Dose: 3 ml Amiodarone HCl (Cordarone) 200 mg PO HS [facility] Last Admin: 09/27/16 21:21 Dose: 200 mg Clopidogrel Bisulfate (Plavix) 75 mg PO DAILY [facility] Last Admin: 09/27/16 08:14 Dose: 75 mg Clotrimazole (Lotrimin 1% Cream) 1 applic TOP BID [facility] Last Admin: 09/27/16 17:02 Dose: 1 applic Docusate Sodium (Colace) 100 mg PO TID [facility] Last Admin: 09/27/16 16:57 Dose: Not Given Escitalopram Oxalate (Lexapro) 10 mg PO HS [facility] Last Admin: 09/27/16 21:03 Dose: 10 mg Ferrous Sulfate (Feosol) 325 mg PO BID [facility] Last Admin: 09/27/16 17:01 Dose: 325 mg Glipizide (Glucotrol Xl) 5 mg PO BID [facility] Last Admin: 09/27/16 17:01 Dose: 5 mg Hydromorphone HCl (Dilaudid) 2 mg PO Q4 PRN PRN Reason: pain (4-8) Hydromorphone HCl (Dilaudid) 4 mg PO Q4 PRN PRN Reason: pain (9-10) Ceftazidime/Avibactam 1.25 gm/ (Sodium Chloride) 100 mls @ 100 mls/hr IVPB Q8H [facility] Last Admin: 09/27/16 22:20 Dose: 100 mls/hr Insulin Detemir (Levemir) 15 units SC HS [facility] Last Admin: 09/26/16 22:56 Dose: Not Given Insulin Human Lispro (Humalog) 0 units SC ACHS [facility] PRN Reason: Protocol Last Admin: 09/27/16 22:00 Dose: Not Given Lactobacillus Acidophilus (Bacid Acidophilus) 1 cap PO BID [facility] Last Admin: 09/27/16 17:01 Dose: 1 cap Lactulose (Enulose) 20 gm PO DAILY PRN PRN Reason: Constipation Last Admin: 09/22/16 17:06 Dose: 20 gm Loratadine (Claritin) 10 mg PO DAILY [facility] Last Admin: 09/27/16 08:15 Dose: 10 mg Lorazepam (Ativan) 1 mg PO BID PRN PRN Reason: for anxiety Metformin HCl (Glucophage) 500 mg PO BIDWM [facility] Last Admin: 09/27/16 17:00 Dose: 500 mg Nystatin (Nystatin Oral Susp) 5 ml PO TID [facility] Last Admin: 09/27/16 17:02 Dose: Not Given Ondansetron HCl (Zofran Inj) 4 mg IVP Q4H PRN PRN Reason: Nausea/Vomiting Oxandrolone (Oxandrin) 5 mg PO BID [facility] Last Admin: 09/27/16 17:05 Dose: 5 mg Oxycodone HCl (Oxycontin Extended Release Tab) 20 mg PO Q8 [facility] Last Admin: 09/27/16 22:17 Dose: 20 mg Pantoprazole Sodium (Protonix Ec Tab) 40 mg PO DAILY [facility] Last Admin: 09/27/16 08:16 Dose: 40 mg Pioglitazone HCl (Actos) 30 mg PO DAILY [facility] Last Admin: 09/27/16 08:15 Dose: 30 mg Fluticasone/Salmeterol (Advair Diskus 500/50) 1 puff INH RBID [facility] Last Admin: 09/27/16 21:05 Dose: 1 puff Sitagliptin Phosphate (Januvia) 25 mg PO DAILY [facility] Last Admin: 09/27/16 08:14 Dose: 25 mg Sitagliptin Phosphate (Januvia) 50 mg PO DAILY [facility] - Labs Labs: 09/26/16 06:30 09/26/16 06:30 - Head Exam Head Exam: NORMAL INSPECTION - Eye Exam Eye Exam: Normal appearance - ENT Exam ENT Exam: Mucous Membranes Moist - Respiratory Exam Respiratory Exam: Decreased Breath Sounds, Rhonchi - GI/Abdominal Exam GI & Abdominal Exam: Normal Bowel Sounds - Neurological Exam Neurological Exam: CN II-XII Intact Assessment and Plan (1) CKD (chronic kidney disease), stage II Status: Chronic (2) Diabetes mellitus Status: Chronic (3) Hypertension Status: Chronic (4) PVD (peripheral vascular disease) with claudication Status: Chronic (5) Abnormality of gait Status: Acute (6) Paroxysmal atrial fibrillation Status: Acute (7) 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
--- NOTE | 2016-09-28 00:50 | CP.PCM.PN ---
Subjective - Date & Time of Evaluation Date of Evaluation: 09/22/16 Time of Evaluation: 09:45 - Subjective Subjective: Patient has been doing well Has no chest pain or SOB Afebrile accuchecks still elevated. Objective - Vital Signs/Intake and Output Vital Signs (last 24 hours): Temp Pulse Resp BP Pulse Ox 97 F L 84 20 136/64 97 09/27/16 16:30 09/27/16 21:21 09/27/16 16:30 09/27/16 21:21 09/27/16 09:42 - Medications Medications: Current Medications Acetaminophen (Tylenol 325mg Tab) 650 mg PO Q6 PRN PRN Reason: Fever >100.4 F Al Hydrox/Mg Hydrox/Simethicone (Maalox Plus 30 Ml) 30 ml PO Q6H PRN PRN Reason: Indigestion / Heartburn Last Admin: 09/25/16 02:59 Dose: 30 ml Albuterol/Ipratropium (Duoneb 3 Mg/0.5 Mg (3 Ml) Ud) 3 ml INH RQID [facility] Last Admin: 09/27/16 19:26 Dose: 3 ml Amiodarone HCl (Cordarone) 200 mg PO [facility] Last Admin: 09/27/16 21:21 Dose: 200 mg Clopidogrel Bisulfate (Plavix) 75 mg PO DAILY [facility] Last Admin: 09/27/16 08:14 Dose: 75 mg Clotrimazole (Lotrimin 1% Cream) 1 applic TOP BID [facility] Last Admin: 09/27/16 17:02 Dose: 1 applic Docusate Sodium (Colace) 100 mg PO TID [facility] Last Admin: 09/27/16 16:57 Dose: Not Given Escitalopram Oxalate (Lexapro) 10 mg PO HS [facility] Last Admin: 09/27/16 21:03 Dose: 10 mg Ferrous Sulfate (Feosol) 325 mg PO BID [facility] Last Admin: 09/27/16 17:01 Dose: 325 mg Glipizide (Glucotrol Xl) 5 mg PO BID [facility] Last Admin: 09/27/16 17:01 Dose: 5 mg Hydromorphone HCl (Dilaudid) 2 mg PO Q4 PRN PRN Reason: pain (4-8) Hydromorphone HCl (Dilaudid) 4 mg PO Q4 PRN PRN Reason: pain (9-10) Ceftazidime/Avibactam 1.25 gm/ (Sodium Chloride) 100 mls @ 100 mls/hr IVPB Q8H [facility] Last Admin: 09/27/16 22:20 Dose: 100 mls/hr Insulin Detemir (Levemir) 15 units SC HS [facility] Last Admin: 09/26/16 22:56 Dose: Not Given Insulin Human Lispro (Humalog) 0 units SC ACHS [facility] PRN Reason: Protocol Last Admin: 09/27/16 22:00 Dose: Not Given Lactobacillus Acidophilus (Bacid Acidophilus) 1 cap PO BID [facility] Last Admin: 09/27/16 17:01 Dose: 1 cap Lactulose (Enulose) 20 gm PO DAILY PRN PRN Reason: Constipation Last Admin: 09/22/16 17:06 Dose: 20 gm Loratadine (Claritin) 10 mg PO DAILY [facility] Last Admin: 09/27/16 08:15 Dose: 10 mg Lorazepam (Ativan) 1 mg PO BID PRN PRN Reason: for anxiety Metformin HCl (Glucophage) 500 mg PO BIDWM [facility] Last Admin: 09/27/16 17:00 Dose: 500 mg Nystatin (Nystatin Oral Susp) 5 ml PO TID [facility] Last Admin: 09/27/16 17:02 Dose: Not Given Ondansetron HCl (Zofran Inj) 4 mg IVP Q4H PRN PRN Reason: Nausea/Vomiting Oxandrolone (Oxandrin) 5 mg PO BID [facility] Last Admin: 09/27/16 17:05 Dose: 5 mg Oxycodone HCl (Oxycontin Extended Release Tab) 20 mg PO Q8 [facility] Last Admin: 09/27/16 22:17 Dose: 20 mg Pantoprazole Sodium (Protonix Ec Tab) 40 mg PO DAILY [facility] Last Admin: 09/27/16 08:16 Dose: 40 mg Pioglitazone HCl (Actos) 30 mg PO DAILY [facility] Last Admin: 09/27/16 08:15 Dose: 30 mg Fluticasone/Salmeterol (Advair Diskus 500/50) 1 puff INH RBID [facility] Last Admin: 09/27/16 21:05 Dose: 1 puff Sitagliptin Phosphate (Januvia) 25 mg PO DAILY [facility] Last Admin: 09/27/16 08:14 Dose: 25 mg Sitagliptin Phosphate (Januvia) 50 mg PO DAILY [facility] - Labs Labs: 09/26/16 06:30 09/26/16 06:30 - Head Exam Head Exam: NORMAL INSPECTION - Eye Exam Eye Exam: Normal appearance - ENT Exam ENT Exam: Mucous Membranes Moist - Respiratory Exam Respiratory Exam: Decreased Breath Sounds, Rales - Cardiovascular Exam Cardiovascular Exam: REGULAR RHYTHM - GI/Abdominal Exam GI & Abdominal Exam: Normal Bowel Sounds - Neurological Exam Neurological Exam: Awake, CN II-XII Intact Assessment and Plan (1) CKD (chronic kidney disease), stage II Status: Chronic (2) Diabetes mellitus Status: Chronic (3) Hypertension Status: Chronic (4) PVD (peripheral vascular disease) with claudication Status: Chronic (5) Abnormality of gait Status: Acute (6) Paroxysmal atrial fibrillation Status: Acute (7) 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
--- NOTE | 2016-09-28 00:52 | CP.PCM.PN ---
Subjective - Date & Time of Evaluation Date of Evaluation: 09/23/16 Time of Evaluation: 09:20 - Subjective Subjective: Doing very well. Has no chest pain or SOB Afebrile Still with a lot of cough Has no fever WBC remains elevated Objective - Vital Signs/Intake and Output Vital Signs (last 24 hours): Temp Pulse Resp BP Pulse Ox 97 F L 84 20 136/64 97 09/27/16 16:30 09/27/16 21:21 09/27/16 16:30 09/27/16 21:21 09/27/16 09:42 - Medications Medications: Current Medications Acetaminophen (Tylenol 325mg Tab) 650 mg PO Q6 PRN PRN Reason: Fever >100.4 F Al Hydrox/Mg Hydrox/Simethicone (Maalox Plus 30 Ml) 30 ml PO Q6H PRN PRN Reason: Indigestion / Heartburn Last Admin: 09/25/16 02:59 Dose: 30 ml Albuterol/Ipratropium (Duoneb 3 Mg/0.5 Mg (3 Ml) Ud) 3 ml INH RQID [facility] Last Admin: 09/27/16 19:26 Dose: 3 ml Amiodarone HCl (Cordarone) 200 mg PO [facility] Last Admin: 09/27/16 21:21 Dose: 200 mg Clopidogrel Bisulfate (Plavix) 75 mg PO DAILY [facility] Last Admin: 09/27/16 08:14 Dose: 75 mg Clotrimazole (Lotrimin 1% Cream) 1 applic TOP BID [facility] Last Admin: 09/27/16 17:02 Dose: 1 applic Docusate Sodium (Colace) 100 mg PO TID [facility] Last Admin: 09/27/16 16:57 Dose: Not Given Escitalopram Oxalate (Lexapro) 10 mg PO HS [facility] Last Admin: 09/27/16 21:03 Dose: 10 mg Ferrous Sulfate (Feosol) 325 mg PO BID [facility] Last Admin: 09/27/16 17:01 Dose: 325 mg Glipizide (Glucotrol Xl) 5 mg PO BID [facility] Last Admin: 09/27/16 17:01 Dose: 5 mg Hydromorphone HCl (Dilaudid) 2 mg PO Q4 PRN PRN Reason: pain (4-8) Hydromorphone HCl (Dilaudid) 4 mg PO Q4 PRN PRN Reason: pain (9-10) Ceftazidime/Avibactam 1.25 gm/ (Sodium Chloride) 100 mls @ 100 mls/hr IVPB Q8H [facility] Last Admin: 09/27/16 22:20 Dose: 100 mls/hr Insulin Detemir (Levemir) 15 units SC HS [facility] Last Admin: 09/26/16 22:56 Dose: Not Given Insulin Human Lispro (Humalog) 0 units SC ACHS [facility] PRN Reason: Protocol Last Admin: 09/27/16 22:00 Dose: Not Given Lactobacillus Acidophilus (Bacid Acidophilus) 1 cap PO BID [facility] Last Admin: 09/27/16 17:01 Dose: 1 cap Lactulose (Enulose) 20 gm PO DAILY PRN PRN Reason: Constipation Last Admin: 09/22/16 17:06 Dose: 20 gm Loratadine (Claritin) 10 mg PO DAILY [facility] Last Admin: 09/27/16 08:15 Dose: 10 mg Lorazepam (Ativan) 1 mg PO BID PRN PRN Reason: for anxiety Metformin HCl (Glucophage) 500 mg PO BIDWM [facility] Last Admin: 09/27/16 17:00 Dose: 500 mg Nystatin (Nystatin Oral Susp) 5 ml PO TID [facility] Last Admin: 09/27/16 17:02 Dose: Not Given Ondansetron HCl (Zofran Inj) 4 mg IVP Q4H PRN PRN Reason: Nausea/Vomiting Oxandrolone (Oxandrin) 5 mg PO BID [facility] Last Admin: 09/27/16 17:05 Dose: 5 mg Oxycodone HCl (Oxycontin Extended Release Tab) 20 mg PO Q8 [facility] Last Admin: 09/27/16 22:17 Dose: 20 mg Pantoprazole Sodium (Protonix Ec Tab) 40 mg PO DAILY [facility] Last Admin: 09/27/16 08:16 Dose: 40 mg Pioglitazone HCl (Actos) 30 mg PO DAILY [facility] Last Admin: 09/27/16 08:15 Dose: 30 mg Fluticasone/Salmeterol (Advair Diskus 500/50) 1 puff INH RBID [facility] Last Admin: 09/27/16 21:05 Dose: 1 puff Sitagliptin Phosphate (Januvia) 25 mg PO DAILY [facility] Last Admin: 09/27/16 08:14 Dose: 25 mg Sitagliptin Phosphate (Januvia) 50 mg PO DAILY [facility] - Labs Labs: 09/26/16 06:30 09/26/16 06:30 - Head Exam Head Exam: NORMAL INSPECTION - Eye Exam Eye Exam: Normal appearance - Respiratory Exam Respiratory Exam: Decreased Breath Sounds, Rales, Rhonchi - Cardiovascular Exam Cardiovascular Exam: REGULAR RHYTHM - GI/Abdominal Exam GI & Abdominal Exam: Normal Bowel Sounds - Neurological Exam Neurological Exam: CN II-XII Intact - Psychiatric Exam Psychiatric exam: Normal Affect Assessment and Plan (1) CKD (chronic kidney disease), stage II Status: Chronic (2) Diabetes mellitus Status: Chronic (3) Hypertension Status: Chronic (4) PVD (peripheral vascular disease) with claudication Status: Chronic (5) Abnormality of gait Status: Acute (6) Paroxysmal atrial fibrillation Status: Acute (7) 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
--- NOTE | 2016-09-28 00:55 | CP.PCM.PN ---
Subjective - Date & Time of Evaluation Date of Evaluation: 09/24/16 Time of Evaluation: 10:15 - Subjective Subjective: Patient feels depressed about his condition tolerated po hypoglycemics ' started tapering levemir dose. has no fever' still with elevated FBS US arterial lower ext showed mild PAD left leg. Objective - Vital Signs/Intake and Output Vital Signs (last 24 hours): Temp Pulse Resp BP Pulse Ox 97 F L 84 20 136/64 97 09/27/16 16:30 09/27/16 21:21 09/27/16 16:30 09/27/16 21:21 09/27/16 09:42 - Medications Medications: Current Medications Acetaminophen (Tylenol 325mg Tab) 650 mg PO Q6 PRN PRN Reason: Fever >100.4 F Al Hydrox/Mg Hydrox/Simethicone (Maalox Plus 30 Ml) 30 ml PO Q6H PRN PRN Reason: Indigestion / Heartburn Last Admin: 09/25/16 02:59 Dose: 30 ml Albuterol/Ipratropium (Duoneb 3 Mg/0.5 Mg (3 Ml) Ud) 3 ml INH RQID [facility] Last Admin: 09/27/16 19:26 Dose: 3 ml Amiodarone HCl (Cordarone) 200 mg PO HS [facility] Last Admin: 09/27/16 21:21 Dose: 200 mg Clopidogrel Bisulfate (Plavix) 75 mg PO DAILY [facility] Last Admin: 09/27/16 08:14 Dose: 75 mg Clotrimazole (Lotrimin 1% Cream) 1 applic TOP BID [facility] Last Admin: 09/27/16 17:02 Dose: 1 applic Docusate Sodium (Colace) 100 mg PO TID [facility] Last Admin: 09/27/16 16:57 Dose: Not Given Escitalopram Oxalate (Lexapro) 10 mg PO HS [facility] Last Admin: 09/27/16 21:03 Dose: 10 mg Ferrous Sulfate (Feosol) 325 mg PO BID [facility] Last Admin: 09/27/16 17:01 Dose: 325 mg Glipizide (Glucotrol Xl) 5 mg PO BID [facility] Last Admin: 09/27/16 17:01 Dose: 5 mg Hydromorphone HCl (Dilaudid) 2 mg PO Q4 PRN PRN Reason: pain (4-8) Hydromorphone HCl (Dilaudid) 4 mg PO Q4 PRN PRN Reason: pain (9-10) Ceftazidime/Avibactam 1.25 gm/ (Sodium Chloride) 100 mls @ 100 mls/hr IVPB Q8H [facility] Last Admin: 09/27/16 22:20 Dose: 100 mls/hr Insulin Detemir (Levemir) 15 units SC HS [facility] Last Admin: 09/26/16 22:56 Dose: Not Given Insulin Human Lispro (Humalog) 0 units SC ACHS [facility] PRN Reason: Protocol Last Admin: 09/27/16 22:00 Dose: Not Given Lactobacillus Acidophilus (Bacid Acidophilus) 1 cap PO BID [facility] Last Admin: 09/27/16 17:01 Dose: 1 cap Lactulose (Enulose) 20 gm PO DAILY PRN PRN Reason: Constipation Last Admin: 09/22/16 17:06 Dose: 20 gm Loratadine (Claritin) 10 mg PO DAILY [facility] Last Admin: 09/27/16 08:15 Dose: 10 mg Lorazepam (Ativan) 1 mg PO BID PRN PRN Reason: for anxiety Metformin HCl (Glucophage) 500 mg PO BIDWM [facility] Last Admin: 09/27/16 17:00 Dose: 500 mg Nystatin (Nystatin Oral Susp) 5 ml PO TID [facility] Last Admin: 09/27/16 17:02 Dose: Not Given Ondansetron HCl (Zofran Inj) 4 mg IVP Q4H PRN PRN Reason: Nausea/Vomiting Oxandrolone (Oxandrin) 5 mg PO BID [facility] Last Admin: 09/27/16 17:05 Dose: 5 mg Oxycodone HCl (Oxycontin Extended Release Tab) 20 mg PO Q8 [facility] Last Admin: 09/27/16 22:17 Dose: 20 mg Pantoprazole Sodium (Protonix Ec Tab) 40 mg PO DAILY [facility] Last Admin: 09/27/16 08:16 Dose: 40 mg Pioglitazone HCl (Actos) 30 mg PO DAILY [facility] Last Admin: 09/27/16 08:15 Dose: 30 mg Fluticasone/Salmeterol (Advair Diskus 500/50) 1 puff INH RBID [facility] Last Admin: 09/27/16 21:05 Dose: 1 puff Sitagliptin Phosphate (Januvia) 25 mg PO DAILY [facility] Last Admin: 09/27/16 08:14 Dose: 25 mg Sitagliptin Phosphate (Januvia) 50 mg PO DAILY [facility] - Labs Labs: 09/26/16 06:30 09/26/16 06:30 - Head Exam Head Exam: NORMAL INSPECTION - Eye Exam Eye Exam: Normal appearance - Respiratory Exam Respiratory Exam: Decreased Breath Sounds, Rales, Rhonchi - Cardiovascular Exam Cardiovascular Exam: REGULAR RHYTHM - GI/Abdominal Exam GI & Abdominal Exam: Normal Bowel Sounds - Neurological Exam Neurological Exam: CN II-XII Intact Assessment and Plan (1) CKD (chronic kidney disease), stage II Status: Chronic (2) Diabetes mellitus Status: Chronic (3) Hypertension Status: Chronic (4) PVD (peripheral vascular disease) with claudication Status: Chronic (5) Abnormality of gait Status: Acute (6) Paroxysmal atrial fibrillation Status: Acute (7) 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 increase po meds fro DM 2. Monitor lytes and renal function.
--- NOTE | 2016-09-28 01:00 | CP.PCM.PN ---
Subjective - Date & Time of Evaluation Date of Evaluation: 09/25/16 Time of Evaluation: 09:45 - Subjective Subjective: patient is doing well Noted improvement of accucheck' Tolerates po hypoglycemics. No episode of hypoglycemia. Objective - Vital Signs/Intake and Output Vital Signs (last 24 hours): Temp Pulse Resp BP Pulse Ox 97 F L 84 20 136/64 97 09/27/16 16:30 09/27/16 21:21 09/27/16 16:30 09/27/16 21:21 09/27/16 09:42 - Medications Medications: Current Medications Acetaminophen (Tylenol 325mg Tab) 650 mg PO Q6 PRN PRN Reason: Fever >100.4 F Al Hydrox/Mg Hydrox/Simethicone (Maalox Plus 30 Ml) 30 ml PO Q6H PRN PRN Reason: Indigestion / Heartburn Last Admin: 09/25/16 02:59 Dose: 30 ml Albuterol/Ipratropium (Duoneb 3 Mg/0.5 Mg (3 Ml) Ud) 3 ml INH RQID [facility] Last Admin: 09/27/16 19:26 Dose: 3 ml Amiodarone HCl (Cordarone) 200 mg PO HS [facility] Last Admin: 09/27/16 21:21 Dose: 200 mg Clopidogrel Bisulfate (Plavix) 75 mg PO DAILY [facility] Last Admin: 09/27/16 08:14 Dose: 75 mg Clotrimazole (Lotrimin 1% Cream) 1 applic TOP BID [facility] Last Admin: 09/27/16 17:02 Dose: 1 applic Docusate Sodium (Colace) 100 mg PO TID [facility] Last Admin: 09/27/16 16:57 Dose: Not Given Escitalopram Oxalate (Lexapro) 10 mg PO HS [facility] Last Admin: 09/27/16 21:03 Dose: 10 mg Ferrous Sulfate (Feosol) 325 mg PO BID [facility] Last Admin: 09/27/16 17:01 Dose: 325 mg Glipizide (Glucotrol Xl) 5 mg PO BID [facility] Last Admin: 09/27/16 17:01 Dose: 5 mg Hydromorphone HCl (Dilaudid) 2 mg PO Q4 PRN PRN Reason: pain (4-8) Hydromorphone HCl (Dilaudid) 4 mg PO Q4 PRN PRN Reason: pain (9-10) Ceftazidime/Avibactam 1.25 gm/ (Sodium Chloride) 100 mls @ 100 mls/hr IVPB Q8H [facility] Last Admin: 09/27/16 22:20 Dose: 100 mls/hr Insulin Detemir (Levemir) 15 units SC HS [facility] Last Admin: 09/26/16 22:56 Dose: Not Given Insulin Human Lispro (Humalog) 0 units SC ACHS [facility] PRN Reason: Protocol Last Admin: 09/27/16 22:00 Dose: Not Given Lactobacillus Acidophilus (Bacid Acidophilus) 1 cap PO BID [facility] Last Admin: 09/27/16 17:01 Dose: 1 cap Lactulose (Enulose) 20 gm PO DAILY PRN PRN Reason: Constipation Last Admin: 09/22/16 17:06 Dose: 20 gm Loratadine (Claritin) 10 mg PO DAILY [facility] Last Admin: 09/27/16 08:15 Dose: 10 mg Lorazepam (Ativan) 1 mg PO BID PRN PRN Reason: for anxiety Metformin HCl (Glucophage) 500 mg PO BIDWM [facility] Last Admin: 09/27/16 17:00 Dose: 500 mg Nystatin (Nystatin Oral Susp) 5 ml PO TID [facility] Last Admin: 09/27/16 17:02 Dose: Not Given Ondansetron HCl (Zofran Inj) 4 mg IVP Q4H PRN PRN Reason: Nausea/Vomiting Oxandrolone (Oxandrin) 5 mg PO BID [facility] Last Admin: 09/27/16 17:05 Dose: 5 mg Oxycodone HCl (Oxycontin Extended Release Tab) 20 mg PO Q8 [facility] Last Admin: 09/27/16 22:17 Dose: 20 mg Pantoprazole Sodium (Protonix Ec Tab) 40 mg PO DAILY [facility] Last Admin: 09/27/16 08:16 Dose: 40 mg Pioglitazone HCl (Actos) 30 mg PO DAILY [facility] Last Admin: 09/27/16 08:15 Dose: 30 mg Fluticasone/Salmeterol (Advair Diskus 500/50) 1 puff INH RBID [facility] Last Admin: 09/27/16 21:05 Dose: 1 puff Sitagliptin Phosphate (Januvia) 25 mg PO DAILY [facility] Last Admin: 09/27/16 08:14 Dose: 25 mg Sitagliptin Phosphate (Januvia) 50 mg PO DAILY [facility] - Labs Labs: 09/26/16 06:30 09/26/16 06:30 - Head Exam Head Exam: NORMAL INSPECTION - Eye Exam Eye Exam: Normal appearance - ENT Exam ENT Exam: Mucous Membranes Moist - Respiratory Exam Respiratory Exam: Decreased Breath Sounds, Rales, Rhonchi - Cardiovascular Exam Cardiovascular Exam: REGULAR RHYTHM - Neurological Exam Neurological Exam: CN II-XII Intact Assessment and Plan (1) CKD (chronic kidney disease), stage II Status: Chronic (2) Diabetes mellitus Status: Chronic (3) Hypertension Status: Chronic (4) PVD (peripheral vascular disease) with claudication Status: Chronic (5) Abnormality of gait Status: Acute (6) Paroxysmal atrial fibrillation Status: Acute (7) 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
--- NOTE | 2016-09-28 01:02 | CP.PCM.PN ---
Subjective - Date & Time of Evaluation Date of Evaluation: 09/26/16 Time of Evaluation: 10:00 - Subjective Subjective: Patient feels a loto better Accucheck is better with po meds' Now on pioglitazone and januvia Doing well with PT. Objective - Vital Signs/Intake and Output Vital Signs (last 24 hours): Temp Pulse Resp BP Pulse Ox 97 F L 84 20 136/64 97 09/27/16 16:30 09/27/16 21:21 09/27/16 16:30 09/27/16 21:21 09/27/16 09:42 - Medications Medications: Current Medications Acetaminophen (Tylenol 325mg Tab) 650 mg PO Q6 PRN PRN Reason: Fever >100.4 F Al Hydrox/Mg Hydrox/Simethicone (Maalox Plus 30 Ml) 30 ml PO Q6H PRN PRN Reason: Indigestion / Heartburn Last Admin: 09/25/16 02:59 Dose: 30 ml Albuterol/Ipratropium (Duoneb 3 Mg/0.5 Mg (3 Ml) Ud) 3 ml INH RQID [facility] Last Admin: 09/27/16 19:26 Dose: 3 ml Amiodarone HCl (Cordarone) 200 mg PO HS [facility] Last Admin: 09/27/16 21:21 Dose: 200 mg Clopidogrel Bisulfate (Plavix) 75 mg PO DAILY [facility] Last Admin: 09/27/16 08:14 Dose: 75 mg Clotrimazole (Lotrimin 1% Cream) 1 applic TOP BID [facility] Last Admin: 09/27/16 17:02 Dose: 1 applic Docusate Sodium (Colace) 100 mg PO TID [facility] Last Admin: 09/27/16 16:57 Dose: Not Given Escitalopram Oxalate (Lexapro) 10 mg PO HS [facility] Last Admin: 09/27/16 21:03 Dose: 10 mg Ferrous Sulfate (Feosol) 325 mg PO BID [facility] Last Admin: 09/27/16 17:01 Dose: 325 mg Glipizide (Glucotrol Xl) 5 mg PO BID [facility] Last Admin: 09/27/16 17:01 Dose: 5 mg Hydromorphone HCl (Dilaudid) 2 mg PO Q4 PRN PRN Reason: pain (4-8) Hydromorphone HCl (Dilaudid) 4 mg PO Q4 PRN PRN Reason: pain (9-10) Ceftazidime/Avibactam 1.25 gm/ (Sodium Chloride) 100 mls @ 100 mls/hr IVPB Q8H [facility] Last Admin: 09/27/16 22:20 Dose: 100 mls/hr Insulin Detemir (Levemir) 15 units SC HS [facility] Last Admin: 09/26/16 22:56 Dose: Not Given Insulin Human Lispro (Humalog) 0 units SC ACHS [facility] PRN Reason: Protocol Last Admin: 09/27/16 22:00 Dose: Not Given Lactobacillus Acidophilus (Bacid Acidophilus) 1 cap PO BID [facility] Last Admin: 09/27/16 17:01 Dose: 1 cap Lactulose (Enulose) 20 gm PO DAILY PRN PRN Reason: Constipation Last Admin: 09/22/16 17:06 Dose: 20 gm Loratadine (Claritin) 10 mg PO DAILY [facility] Last Admin: 09/27/16 08:15 Dose: 10 mg Lorazepam (Ativan) 1 mg PO BID PRN PRN Reason: for anxiety Metformin HCl (Glucophage) 500 mg PO BIDWM [facility] Last Admin: 09/27/16 17:00 Dose: 500 mg Nystatin (Nystatin Oral Susp) 5 ml PO TID [facility] Last Admin: 09/27/16 17:02 Dose: Not Given Ondansetron HCl (Zofran Inj) 4 mg IVP Q4H PRN PRN Reason: Nausea/Vomiting Oxandrolone (Oxandrin) 5 mg PO BID [facility] Last Admin: 09/27/16 17:05 Dose: 5 mg Oxycodone HCl (Oxycontin Extended Release Tab) 20 mg PO Q8 [facility] Last Admin: 09/27/16 22:17 Dose: 20 mg Pantoprazole Sodium (Protonix Ec Tab) 40 mg PO DAILY [facility] Last Admin: 09/27/16 08:16 Dose: 40 mg Pioglitazone HCl (Actos) 30 mg PO DAILY [facility] Last Admin: 09/27/16 08:15 Dose: 30 mg Fluticasone/Salmeterol (Advair Diskus 500/50) 1 puff INH RBID [facility] Last Admin: 09/27/16 21:05 Dose: 1 puff Sitagliptin Phosphate (Januvia) 25 mg PO DAILY [facility] Last Admin: 09/27/16 08:14 Dose: 25 mg Sitagliptin Phosphate (Januvia) 50 mg PO DAILY [facility] - Labs Labs: 09/26/16 06:30 09/26/16 06:30 - Head Exam Head Exam: NORMAL INSPECTION - Eye Exam Eye Exam: Normal appearance - Respiratory Exam Respiratory Exam: Decreased Breath Sounds, Rales, Rhonchi - Cardiovascular Exam Cardiovascular Exam: REGULAR RHYTHM - GI/Abdominal Exam GI & Abdominal Exam: Normal Bowel Sounds Assessment and Plan (1) CKD (chronic kidney disease), stage II Status: Chronic (2) Diabetes mellitus Status: Chronic (3) Hypertension Status: Chronic (4) PVD (peripheral vascular disease) with claudication Status: Chronic (5) Abnormality of gait Status: Acute (6) Paroxysmal atrial fibrillation Status: Acute (7) 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
--- NOTE | 2016-09-28 01:04 | CP.PCM.PN ---
Subjective - Date & Time of Evaluation Date of Evaluation: 09/27/16 Time of Evaluation: 11:25 - Subjective Subjective: Patient is doing well Noted significant improvement of BUN and creatinine Has no fever Has no chest pain still with some cough. Objective - Vital Signs/Intake and Output Vital Signs (last 24 hours): Temp Pulse Resp BP Pulse Ox 97 F L 84 20 136/64 97 09/27/16 16:30 09/27/16 21:21 09/27/16 16:30 09/27/16 21:21 09/27/16 09:42 - Medications Medications: Current Medications Acetaminophen (Tylenol 325mg Tab) 650 mg PO Q6 PRN PRN Reason: Fever >100.4 F Al Hydrox/Mg Hydrox/Simethicone (Maalox Plus 30 Ml) 30 ml PO Q6H PRN PRN Reason: Indigestion / Heartburn Last Admin: 09/25/16 02:59 Dose: 30 ml Albuterol/Ipratropium (Duoneb 3 Mg/0.5 Mg (3 Ml) Ud) 3 ml INH RQID [facility] Last Admin: 09/27/16 19:26 Dose: 3 ml Amiodarone HCl (Cordarone) 200 mg PO HS [facility] Last Admin: 09/27/16 21:21 Dose: 200 mg Clopidogrel Bisulfate (Plavix) 75 mg PO DAILY [facility] Last Admin: 09/27/16 08:14 Dose: 75 mg Clotrimazole (Lotrimin 1% Cream) 1 applic TOP BID [facility] Last Admin: 09/27/16 17:02 Dose: 1 applic Docusate Sodium (Colace) 100 mg PO TID [facility] Last Admin: 09/27/16 16:57 Dose: Not Given Escitalopram Oxalate (Lexapro) 10 mg PO HS [facility] Last Admin: 09/27/16 21:03 Dose: 10 mg Ferrous Sulfate (Feosol) 325 mg PO BID [facility] Last Admin: 09/27/16 17:01 Dose: 325 mg Glipizide (Glucotrol Xl) 5 mg PO BID [facility] Last Admin: 09/27/16 17:01 Dose: 5 mg Hydromorphone HCl (Dilaudid) 2 mg PO Q4 PRN PRN Reason: pain (4-8) Hydromorphone HCl (Dilaudid) 4 mg PO Q4 PRN PRN Reason: pain (9-10) Ceftazidime/Avibactam 1.25 gm/ (Sodium Chloride) 100 mls @ 100 mls/hr IVPB Q8H [facility] Last Admin: 09/27/16 22:20 Dose: 100 mls/hr Insulin Detemir (Levemir) 15 units SC HS [facility] Last Admin: 09/26/16 22:56 Dose: Not Given Insulin Human Lispro (Humalog) 0 units SC ACHS [facility] PRN Reason: Protocol Last Admin: 09/27/16 22:00 Dose: Not Given Lactobacillus Acidophilus (Bacid Acidophilus) 1 cap PO BID [facility] Last Admin: 09/27/16 17:01 Dose: 1 cap Lactulose (Enulose) 20 gm PO DAILY PRN PRN Reason: Constipation Last Admin: 09/22/16 17:06 Dose: 20 gm Loratadine (Claritin) 10 mg PO DAILY [facility] Last Admin: 09/27/16 08:15 Dose: 10 mg Lorazepam (Ativan) 1 mg PO BID PRN PRN Reason: for anxiety Metformin HCl (Glucophage) 500 mg PO BIDWM [facility] Last Admin: 09/27/16 17:00 Dose: 500 mg Nystatin (Nystatin Oral Susp) 5 ml PO TID [facility] Last Admin: 09/27/16 17:02 Dose: Not Given Ondansetron HCl (Zofran Inj) 4 mg IVP Q4H PRN PRN Reason: Nausea/Vomiting Oxandrolone (Oxandrin) 5 mg PO BID [facility] Last Admin: 09/27/16 17:05 Dose: 5 mg Oxycodone HCl (Oxycontin Extended Release Tab) 20 mg PO Q8 [facility] Last Admin: 09/27/16 22:17 Dose: 20 mg Pantoprazole Sodium (Protonix Ec Tab) 40 mg PO DAILY [facility] Last Admin: 09/27/16 08:16 Dose: 40 mg Pioglitazone HCl (Actos) 30 mg PO DAILY [facility] Last Admin: 09/27/16 08:15 Dose: 30 mg Fluticasone/Salmeterol (Advair Diskus 500/50) 1 puff INH RBID [facility] Last Admin: 09/27/16 21:05 Dose: 1 puff Sitagliptin Phosphate (Januvia) 25 mg PO DAILY [facility] Last Admin: 09/27/16 08:14 Dose: 25 mg Sitagliptin Phosphate (Januvia) 50 mg PO DAILY [facility] - Labs Labs: 09/26/16 06:30 09/26/16 06:30 - Head Exam Head Exam: NORMAL INSPECTION - Eye Exam Eye Exam: Normal appearance - ENT Exam ENT Exam: Mucous Membranes Moist - Respiratory Exam Respiratory Exam: Decreased Breath Sounds, Rhonchi - Cardiovascular Exam Cardiovascular Exam: REGULAR RHYTHM - GI/Abdominal Exam GI & Abdominal Exam: Normal Bowel Sounds - Neurological Exam Neurological Exam: Awake, CN II-XII Intact Assessment and Plan (1) CKD (chronic kidney disease), stage II Status: Chronic (2) Diabetes mellitus Status: Chronic (3) Hypertension Status: Chronic (4) PVD (peripheral vascular disease) with claudication Status: Chronic (5) Abnormality of gait Status: Acute (6) Paroxysmal atrial fibrillation Status: Acute (7) 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
[2016-09-28] MEDS: oxyCODONE 20 mg ER Tab (oxyCONTIN) PO SCH ×3 (06:32→21:38)
[2016-09-28] MEDS: Albuterol-Ipratrop 3 mg / 0.5 (3 ml) UD INH SCH ×4 (07:30→19:28)
[2016-09-28 07:58] LABS: BLOOD UREA NITROGEN 16 mg/dl (9-20); CALCIUM 8.4 mg/dL (8.4-10.2); CARBON DIOXIDE 24 mmol/L (22-30); GFR AFRICAN-AMERICAN > 60; GLUCOSE,RANDOM 163 mg/dL (75-110); POTASSIUM 4.5 MMOL/L (3.6-5.0); SODIUM 140 mmol/l (132-148)
[2016-09-28 08:00] LABS: CHLORIDE 104 mmol/L (98-107)
[2016-09-28] MEDS: Insulin Lispro (humaLOG) 100 Units/ml Inj SC SCH (08:03)
--- NOTE | 2016-09-28 08:35 | CP.PCM.PN ---
Subjective - Date & Time of Evaluation Date of Evaluation: 09/28/16 Time of Evaluation: 08:35 - Subjective Subjective: FEELS BETTER SOB LESS COUGH LESS Objective - Vital Signs/Intake and Output Vital Signs (last 24 hours): Temp Pulse Resp BP Pulse Ox 96.8 F L 86 20 142/72 96 09/28/16 07:35 09/28/16 07:35 09/28/16 07:35 09/28/16 07:35 09/28/16 07:35 - Medications Medications: Current Medications Acetaminophen (Tylenol 325mg Tab) 650 mg PO Q6 PRN PRN Reason: Fever >100.4 F Al Hydrox/Mg Hydrox/Simethicone (Maalox Plus 30 Ml) 30 ml PO Q6H PRN PRN Reason: Indigestion / Heartburn Last Admin: 09/25/16 02:59 Dose: 30 ml Albuterol/Ipratropium (Duoneb 3 Mg/0.5 Mg (3 Ml) Ud) 3 ml INH RQID [facility] Last Admin: 09/28/16 07:30 Dose: 3 ml Amiodarone HCl (Cordarone) 200 mg PO [facility] Last Admin: 09/27/16 21:21 Dose: 200 mg Clopidogrel Bisulfate (Plavix) 75 mg PO DAILY [facility] Last Admin: 09/27/16 08:14 Dose: 75 mg Clotrimazole (Lotrimin 1% Cream) 1 applic TOP BID [facility] Last Admin: 09/27/16 17:02 Dose: 1 applic Docusate Sodium (Colace) 100 mg PO TID [facility] Last Admin: 09/27/16 16:57 Dose: Not Given Escitalopram Oxalate (Lexapro) 10 mg PO [facility] Last Admin: 09/27/16 21:03 Dose: 10 mg Ferrous Sulfate (Feosol) 325 mg PO BID [facility] Last Admin: 09/27/16 17:01 Dose: 325 mg Glipizide (Glucotrol Xl) 5 mg PO BID [facility] Last Admin: 09/27/16 17:01 Dose: 5 mg Hydromorphone HCl (Dilaudid) 2 mg PO Q4 PRN PRN Reason: pain (4-8) Hydromorphone HCl (Dilaudid) 4 mg PO Q4 PRN PRN Reason: pain (9-10) Ceftazidime/Avibactam 1.25 gm/ (Sodium Chloride) 100 mls @ 100 mls/hr IVPB Q8H [facility] Last Admin: 09/28/16 05:29 Dose: 100 mls/hr Insulin Detemir (Levemir) 15 units SC HS [facility] Last Admin: 09/26/16 22:56 Dose: Not Given Insulin Human Lispro (Humalog) 0 units SC ACHS [facility] PRN Reason: Protocol Last Admin: 09/28/16 08:03 Dose: 2 units Lactobacillus Acidophilus (Bacid Acidophilus) 1 cap PO BID [facility] Last Admin: 09/27/16 17:01 Dose: 1 cap Lactulose (Enulose) 20 gm PO DAILY PRN PRN Reason: Constipation Last Admin: 09/22/16 17:06 Dose: 20 gm Loratadine (Claritin) 10 mg PO DAILY [facility] Last Admin: 09/27/16 08:15 Dose: 10 mg Lorazepam (Ativan) 1 mg PO BID PRN PRN Reason: for anxiety Metformin HCl (Glucophage) 500 mg PO BIDWM [facility] Last Admin: 09/27/16 17:00 Dose: 500 mg Nystatin (Nystatin Oral Susp) 5 ml PO TID [facility] Last Admin: 09/27/16 17:02 Dose: Not Given Ondansetron HCl (Zofran Inj) 4 mg IVP Q4H PRN PRN Reason: Nausea/Vomiting Oxandrolone (Oxandrin) 5 mg PO BID [facility] Last Admin: 09/27/16 17:05 Dose: 5 mg Oxycodone HCl (Oxycontin Extended Release Tab) 20 mg PO Q8 [facility] Last Admin: 09/28/16 06:32 Dose: 20 mg Pantoprazole Sodium (Protonix Ec Tab) 40 mg PO DAILY [facility] Last Admin: 09/27/16 08:16 Dose: 40 mg Pioglitazone HCl (Actos) 30 mg PO DAILY [facility] Last Admin: 09/27/16 08:15 Dose: 30 mg Fluticasone/Salmeterol (Advair Diskus 500/50) 1 puff INH RBID [facility] Last Admin: 09/27/16 21:05 Dose: 1 puff Sitagliptin Phosphate (Januvia) 25 mg PO DAILY [facility] Last Admin: 09/27/16 08:14 Dose: 25 mg Sitagliptin Phosphate (Januvia) 50 mg PO DAILY [facility] - Labs Labs: 09/26/16 06:30 09/28/16 05:30 - Constitutional Appears: Well - Head Exam Head Exam: ATRAUMATIC, NORMAL INSPECTION, NORMOCEPHALIC - Eye Exam Eye Exam: EOMI, Normal appearance, PERRL Pupil Exam: NORMAL ACCOMODATION, PERRL - ENT Exam ENT Exam: Mucous Membranes Moist, Normal Exam - Neck Exam Neck Exam: Full ROM, Normal Inspection. absent: Lymphadenopathy - Respiratory Exam Respiratory Exam: Rales, NORMAL BREATHING PATTERN - Cardiovascular Exam Cardiovascular Exam: REGULAR RHYTHM, +S1, +S2. absent: Murmur - GI/Abdominal Exam GI & Abdominal Exam: Soft, Normal Bowel Sounds. absent: Tenderness - Rectal Exam Rectal Exam: NORMAL INSPECTION - Extremities Exam Extremities Exam: Full ROM, Normal Capillary Refill, Normal Inspection. absent : Joint Swelling, Pedal Edema Additional comments: S/P R BKA - Back Exam Back Exam: NORMAL INSPECTION - Neurological Exam Neurological Exam: Abnormal Gait, Alert, Awake, CN II-XII Intact, Oriented x3 - Psychiatric Exam Psychiatric exam: Normal Affect, Normal Mood - Skin Skin Exam: Dry, Intact, Normal Color, Warm Assessment and Plan - Assessment and Plan (Free Text) Assessment: PNEUMONIA--PRBABLY DUE TO ASPIRATION SPUTUM LIGHT GROWTH OF GM-VE RODS Plan: D/C DROPLET PRECAUTIONS CONTINUE PRESENT RX REPEAT CXR
[2016-09-28] MEDS: Fluticasone-Salmeterol 500-50mcg Diskus INH SCH ×2 (09:00→20:00)
[2016-09-28] MEDS: Nystatin 100,000 Units/ml Oral Susp 5 ml UD PO SCH ×3 (09:07→17:15)
[2016-09-28] MEDS: Pantoprazole 40 mg EC Tab PO SCH (09:07)
[2016-09-28] MEDS: GlipiZIDE 5 mg SR Tab PO SCH ×2 (09:08→17:14)
[2016-09-28] MEDS: Lactobacillus Acidophilus 500 MU Cap PO SCH ×2 (09:12→17:13)
--- NOTE | 2016-09-28 10:28 | RAD ---
PROCEDURE: CHEST RADIOGRAPH, 1 VIEW HISTORY: pneumonia COMPARISON: Comparison made with chest radiograph 09/25/2016. FINDINGS: LUNGS: Right subclavian MediPort with tip in the SVC unchanged. Left lower lobe atelectasis and or infiltrate. Minor right basilar atelectasis ; developing right lower lobe infiltrate could be excluded followup radiographs Note made of what probably represents overlying the left parasagittal of trachea and upper mediastinum PLEURA: No pneumothorax or pleural fluid seen. CARDIOVASCULAR: Cardiomegaly. OSSEOUS STRUCTURES: No significant abnormalities. VISUALIZED UPPER ABDOMEN: Normal. OTHER FINDINGS: None. IMPRESSION: Left lower lobe atelectasis and or infiltrate. Minor right basilar atelectasis ; developing right lower lobe infiltrate could be excluded with followup radiographs.
[2016-09-28] MEDS: Insulin Detemir 100 Units/ml Inj SC SCH (22:14)
[2016-09-29] MEDS: oxyCODONE 20 mg ER Tab (oxyCONTIN) PO SCH ×3 (05:07→21:08)
[2016-09-29] MEDS: Albuterol-Ipratrop 3 mg / 0.5 (3 ml) UD INH SCH ×4 (07:33→19:19)
[2016-09-29] MEDS: Fluticasone-Salmeterol 500-50mcg Diskus INH SCH ×2 (09:00→20:44)
[2016-09-29] MEDS: Pantoprazole 40 mg EC Tab PO SCH (09:07)
[2016-09-29] MEDS: GlipiZIDE 5 mg SR Tab PO SCH ×2 (09:07→16:53)
[2016-09-29] MEDS: Lactobacillus Acidophilus 500 MU Cap PO SCH ×2 (09:08→16:55)
[2016-09-29] MEDS: Alum-Mag Hydrox-Simethicone Susp (30 mL) PO PRN ×3 (09:08→21:08)
[2016-09-29] MEDS: Nystatin 100,000 Units/ml Oral Susp 5 ml UD PO SCH ×3 (09:09→16:56)
--- NOTE | 2016-09-29 10:33 | CP.PCM.PN ---
Subjective - Date & Time of Evaluation Date of Evaluation: 09/29/16 Time of Evaluation: 10:00 - Subjective Subjective: improving on avycaz Objective - Vital Signs/Intake and Output Vital Signs (last 24 hours): Temp Pulse Resp BP Pulse Ox 98.1 F 86 22 158/94 H 100 09/29/16 09:00 09/29/16 09:00 09/29/16 09:00 09/29/16 09:00 09/29/16 08:38 - Medications Medications: Current Medications Acetaminophen (Tylenol 325mg Tab) 650 mg PO Q6 PRN PRN Reason: Fever >100.4 F Al Hydrox/Mg Hydrox/Simethicone (Maalox Plus 30 Ml) 30 ml PO Q6H PRN PRN Reason: Indigestion / Heartburn Last Admin: 09/29/16 09:08 Dose: 30 ml Albuterol/Ipratropium (Duoneb 3 Mg/0.5 Mg (3 Ml) Ud) 3 ml INH RQID [facility] Last Admin: 09/29/16 07:33 Dose: 3 ml Amiodarone HCl (Cordarone) 200 mg PO [facility] Last Admin: 09/28/16 21:43 Dose: 200 mg Clopidogrel Bisulfate (Plavix) 75 mg PO DAILY [facility] Last Admin: 09/29/16 09:06 Dose: 75 mg Clotrimazole (Lotrimin 1% Cream) 1 applic TOP BID [facility] Last Admin: 09/29/16 09:05 Dose: 1 applic Docusate Sodium (Colace) 100 mg PO TID [facility] Last Admin: 09/29/16 09:09 Dose: Not Given Escitalopram Oxalate (Lexapro) 10 mg PO [facility] Last Admin: 09/28/16 21:40 Dose: 10 mg Ferrous Sulfate (Feosol) 325 mg PO BID [facility] Last Admin: 09/29/16 09:06 Dose: 325 mg Glipizide (Glucotrol Xl) 5 mg PO BID [facility] Last Admin: 09/29/16 09:07 Dose: 5 mg Hydromorphone HCl (Dilaudid) 2 mg PO Q4 PRN PRN Reason: pain (4-8) Hydromorphone HCl (Dilaudid) 4 mg PO Q4 PRN PRN Reason: pain (9-10) Ceftazidime/Avibactam 1.25 gm/ (Sodium Chloride) 100 mls @ 100 mls/hr IVPB Q8H [facility] Last Admin: 09/29/16 04:33 Dose: 100 mls/hr Insulin Detemir (Levemir) 5 units SC HS [facility] Last Admin: 09/28/16 22:14 Dose: 5 units Lactobacillus Acidophilus (Bacid Acidophilus) 1 cap PO BID [facility] Last Admin: 09/29/16 09:08 Dose: 1 cap Lactulose (Enulose) 20 gm PO DAILY PRN PRN Reason: Constipation Last Admin: 09/22/16 17:06 Dose: 20 gm Loratadine (Claritin) 10 mg PO DAILY [facility] Last Admin: 09/29/16 09:07 Dose: 10 mg Lorazepam (Ativan) 1 mg PO BID PRN PRN Reason: for anxiety Metformin HCl (Glucophage) 500 mg PO BIDWM [facility] Last Admin: 09/29/16 09:00 Dose: 500 mg Nystatin (Nystatin Oral Susp) 5 ml PO TID [facility] Last Admin: 09/29/16 09:09 Dose: Not Given Ondansetron HCl (Zofran Inj) 4 mg IVP Q4H PRN PRN Reason: Nausea/Vomiting Oxandrolone (Oxandrin) 5 mg PO BID [facility] Last Admin: 09/29/16 09:08 Dose: 5 mg Oxycodone HCl (Oxycontin Extended Release Tab) 20 mg PO Q8 [facility] Last Admin: 09/29/16 05:07 Dose: 20 mg Pantoprazole Sodium (Protonix Ec Tab) 40 mg PO DAILY [facility] Last Admin: 09/29/16 09:07 Dose: 40 mg Pioglitazone HCl (Actos) 30 mg PO DAILY [facility] Last Admin: 09/29/16 09:07 Dose: 30 mg Fluticasone/Salmeterol (Advair Diskus 500/50) 1 puff INH RBID [facility] Last Admin: 09/29/16 09:00 Dose: 1 puff Sitagliptin Phosphate (Januvia) 100 mg PO DAILY [facility] - Labs Labs: 09/26/16 06:30 09/28/16 05:30 - Constitutional Appears: Non-toxic, Chronically Ill - Head Exam Head Exam: NORMOCEPHALIC - Eye Exam Eye Exam: absent: Scleral icterus - ENT Exam ENT Exam: Mucous Membranes Dry - Neck Exam Neck Exam: absent: Lymphadenopathy - Respiratory Exam Respiratory Exam: Decreased Breath Sounds - Cardiovascular Exam Cardiovascular Exam: REGULAR RHYTHM - GI/Abdominal Exam GI & Abdominal Exam: Distended, Soft Assessment and Plan (1) Abdominal pain Status: Acute (2) Osteomyelitis of foot, acute Status: Acute (3) Uncontrolled diabetes mellitus Status: Acute (4) Pneumonia due to aerobic bacteria Status: Acute
--- NOTE | 2016-09-29 13:28 | PSY.TMCNF ---
Nursing - Vital Signs Vital Signs (Last 8 hours): Vital Signs 09/29/16 09/29/16 08:38 09:00 Temperature 98.1 F 98.1 F Pulse Rate 86 86 Respiratory 22 22 Rate Blood Pressure 158/94 H 158/94 H O2 Sat by Pulse 100 Oximetry Pain: 0 - Precautions: Precautions: Fall Prevention, Pressure Ulcer Isolation: Contact - Medications/Other Issues Comment: -Complaining about current medication regimen, pt stated he would rather be on insulin at home because he could manage that independently at home compared to pills . -New sputum culture: Serratia Marcescens, Dr. Argueta aware , continue current ABT. - Consults Comment: DR. Garza, Dr. Argueta, Dr. Pelaez, Dr. Vivar, Dr. Osorio - Skin Incision Site: Right BKA stump Dressing Status: Clean, Dry, Intact Incision: Dian Intact, Sutures Intact, No Drainage Noted, No Odor Incision Line Treatment: Cleanse with NSS and cover with Xeroform,dry dressing and antoinette. - Wound Left Lower Abdomen Wound Type: Other Wound Shape: Irregular Wound Length: 1.5 Wound Width: 1.3 Periwound: Excoriated Wound Drainage Amount: Moderate Wound Drainage Description: Brown Wound General Appearance: Draining Wound Dressing Status: Changed Dressing Changed: Yes Wound Packing Type: Not applicable Right Buttock Wound Type: Pressure Ulcer Wound Stage: Unstageable Wound Shape: Irregular Wound Bed Greatest Portion: Pale Kurten Wound Bed Lesser Portion: Black (Eschar) Periwound: Intact Wound Drainage Amount: None Wound General Appearance: Clean/Dry Wound Dressing Status: Dry & Intact, Changed Dressing Changed: Yes Wound Primary Dressing Type: Allevyn - Toileting Toileting: Moderate Assistance - Bladder Management Bladder Pattern: Normal Voiding Method: Urinal Bladder Management: Supervision Frequency of Accidents: 0 - Bowel Management Bowel Pattern: Normal Bowel Management: Minimal Assistance Frequency of Accidents: 0 - Transfers Transfers: Moderate Assistance - ADL's ADL's: Moderate Assistance - Pain Management Comments: On Oxycontin 20mg q8h - Patient/Family Teaching Comments: Care post BKA, safety precautions, Isolation precautions, Handwashing - Goals/Time Frame Comments: Per multidisciplinary care plan and goals Physical Therapy - Bed Mobility Bed Mobility: Verbal Cues, Contact Guard, Minimal Assistance - Transfers Wheelchair to Mat: Minimal Assistance Sit to Stand: Moderate Assistance, Maximum Assistance - Ambulation Comment: pt non ambulatory; static standing at wall bar - Stair Negotiation Stairs: Level of Assistance: Not Tested - Standing Balance Static Stand: Moderate Assistance Dynamic Stand: Dependent Comment: wall bar - Pain Pain (assessed during therapy session): 4 Management Techniques: Medication, Massage, Position Change, Elevation, Relaxation Techniques, Exercise, Inactivity Comment: some phantom sensation (itching) at night - Insight/Carryover Insight/Carryover: Fair - Patient/Family Education Comment: safety, mobility, therapy schedule, POC, hand washing, pre-prosthetic training, pressure relief, strengthening, positioning, postural control - Assessment/Plan Assessment: Mr. Mtz continues to demonstrate impaired progress in therapy with impaired tolerance to activity. Pt requires moderate to maximal encouragement to participate in therapy session. Pt requires prologned and frequent rest breaks during therapy sessions. Pt requires mod to max A for standing transfers and min A for lateral transfers. Patient has poor/fair carry -over with prior educated techniques. PT recommends discharge to [facility] as patient has limited support at home and requires further therapy to continue addressing skilled needs s/p R BKA. - Goals Timeframe: 7 days Goals: -The patient will be independent with his home exercise program helping to strengthen and stretch his leg in preparation for a prosthetic. -The patient will be less than a 7/10 90% of the time. -the patient will be independent with desensitization exercises and distraction techniques. -in parallel bars the patient will walk 5' minimal assistance. -the patient will be able to stand for up to 5 minutes with an AD cg. -sit <-> stand with RW cg. -supine <-> sit independent - Provider Therapist: Lizette GomezPT, DPT License Number: [id number] Occupational Therapy - Arousal/Attention/Orientation Patient Orientation: Person, Place, Time, Appropriate to Age, Appropriate to Situation - ADL/IADL Self Feeding: Modified Independent Grooming: Supervision, Set-up Help Bathing-Upper Extremity: Minimal Assistance Bathing-Lower Extremity: Moderate Assistance Dressing-Upper Extremity: Supervision, Set-up Help Dressing-Lower Extremity: Set-up Help, Minimal Assistance - Sitting Balance Static Sitting: Supervision Dynamic Sitting: Reaches across midline, Requires supervision - Transfers Wheelchair to Bed Transfers: Minimal Assistance, Moderate Assistance Toilet Transfers: Minimal Assistance, Moderate Assistance Tub Transfers: Moderate Assistance - Wheelchair Management Level of Assistance: Supervision Distance (ft.): 50 - Upper Extremity Status Right Upper Extremity Comment: AROM WFL Left Upper Extremity Comment: AROM limited with shoulder extension/external rotation, elbow extension and finger extension 3-5th fingers. PROM limited. - Pain Pain (assessed during therapy session): 4 Alleviating Techniques: Medication, Massage, Position Change, Elevation, Relaxation Techniques, Exercise, Inactivity Comment: some phantom sensation (itching) at night - Insight/Carryover Insight/Carryover: Fair - Patient/Family Education Comment: safety, mobility, therapy schedule, POC, hand washing, pre-prosthetic training, pressure relief, strengthening, positioning, postural control - Assessment/Plan Assessment: Mr. Mtz continues to demonstrate impaired progress in therapy with impaired tolerance to activity. Pt requires moderate to maximal encouragement to participate in therapy session. Pt requires prologned and frequent rest breaks during therapy sessions. Pt requires mod to max A for standing transfers and min A for lateral transfers. Patient has poor/fair carry -over with prior educated techniques. PT recommends discharge to [facility] as patient has limited support at home and requires further therapy to continue addressing skilled needs s/p R BKA. - Goals Timeframe: 7 days Goals: -The patient will be independent with his home exercise program helping to strengthen and stretch his leg in preparation for a prosthetic. -The patient will be less than a 7/10 90% of the time. -the patient will be independent with desensitization exercises and distraction techniques. -in parallel bars the patient will walk 5' minimal assistance. -the patient will be able to stand for up to 5 minutes with an AD cg. -sit <-> stand with RW cg. -supine <-> sit independent - Provider Therapist: Himanshu Lorenzo MS, OTR/L License Number: [id number] Speech Therapy - Plan Assessment: Mr. Mtz continues to demonstrate impaired progress in therapy with impaired tolerance to activity. Pt requires moderate to maximal encouragement to participate in therapy session. Pt requires prologned and frequent rest breaks during therapy sessions. Pt requires mod to max A for standing transfers and min A for lateral transfers. Patient has poor/fair carry -over with prior educated techniques. PT recommends discharge to [facility] as patient has limited support at home and requires further therapy to continue addressing skilled needs s/p R BKA. Recreational Therapy - Participation Participation: Participates in Individual and/or Group Sessions - Attendance Attendance: 3-5 times per week - Activities Leisure Activities: Television - Socialization Level of Socialization: Initiates/interacts freely with care givers and peer - Diversional Time Diversional Time: television - Assessment Assessment/Plan: Mr. Mtz continues to demonstrate impaired progress in therapy with impaired tolerance to activity. Pt requires moderate to maximal encouragement to participate in therapy session. Pt requires prologned and frequent rest breaks during therapy sessions. Pt requires mod to max A for standing transfers and min A for lateral transfers. Patient has poor/fair carry -over with prior educated techniques. PT recommends discharge to [facility] as patient has limited support at home and requires further therapy to continue addressing skilled needs s/p R BKA. - Provider Therapist: Georgiana Manrique, SALES AND MARKETING DIRECTOR #[id number] Nutrition - Current Diet Current Diet/ Supplement/ Feedings: Moderate consistent CHO heart healthy diet - Appetite Percent Meal Consumed: 50-74% - Comments Comments: Care post BKA, safety precautions, Isolation precautions, Handwashing - Assessment/Goals/Time Frame Assessment/Goals/Time Frame: -Complaining about current medication regimen, pt stated he would rather be on insulin at home because he could manage that independently at home compared to pills . -New sputum culture: Serratia Marcescens, Dr. Argueta aware, continue current ABT. - Provider Provider: Citlalli Ovalle RD Case Management - Psychosocial Assessment Support Systems: Patient lives with spouse who very supportive, involved in care and visit often Psychological Interventions/Needs: Patient is alert and oriented x3 and able to verbalize needs. Patient cooperative and pleasant Discharge Concerns: Patient continues to require max A for transfers. Patient continues with L leg weakness and requires frequent rest breaks due to fatigue. Patient/Family Meeting: CM met with patient and rehab team Intervention/Goal/Outcome:: 1. Plan: [facility] as patient continues to requires hands on assist with functional mobility- CM to provide list of [facility] to patient- patient refusing admission at [facility]. 2. Coordinate and arrange for transfer. 3. Tentative discharge date: 10/03/2016. 4. continued stay auth, LAD: - Discharge Plan Discharge Plan: Subacute care - Provider Provider: LIZBET Cotto, [employer] License Number: [id number] Rehabilitation Plan - Treatment Plan Treatment Plan: Physical Therapy, Occupational Therapy, Dietary, Patient/Family Education - Recommendation Recommendation: Physical Therapy, Occupational Therapy, Dietary, Patient/Family Education - Discharge Plan Discharge to: Subacute (15)
--- NOTE | 2016-09-29 15:02 | CP.PCM.PN ---
Subjective - Date & Time of Evaluation Date of Evaluation: 09/29/16 Time of Evaluation: 09:00 - Subjective Subjective: no acute pain at times stump discomfort Objective - Vital Signs/Intake and Output Vital Signs (last 24 hours): Temp Pulse Resp BP Pulse Ox 98.1 F 86 22 158/94 H 100 09/29/16 09:00 09/29/16 09:00 09/29/16 09:00 09/29/16 09:00 09/29/16 08:38 - Medications Medications: Current Medications Acetaminophen (Tylenol 325mg Tab) 650 mg PO Q6 PRN PRN Reason: Fever >100.4 F Al Hydrox/Mg Hydrox/Simethicone (Maalox Plus 30 Ml) 30 ml PO Q6H PRN PRN Reason: Indigestion / Heartburn Last Admin: 09/29/16 09:08 Dose: 30 ml Albuterol/Ipratropium (Duoneb 3 Mg/0.5 Mg (3 Ml) Ud) 3 ml INH RQID [facility] Last Admin: 09/29/16 11:11 Dose: 3 ml Amiodarone HCl (Cordarone) 200 mg PO [facility] Last Admin: 09/28/16 21:43 Dose: 200 mg Clopidogrel Bisulfate (Plavix) 75 mg PO DAILY [facility] Last Admin: 09/29/16 09:06 Dose: 75 mg Clotrimazole (Lotrimin 1% Cream) 1 applic TOP BID [facility] Last Admin: 09/29/16 09:05 Dose: 1 applic Docusate Sodium (Colace) 100 mg PO TID [facility] Last Admin: 09/29/16 12:12 Dose: Not Given Escitalopram Oxalate (Lexapro) 10 mg PO [facility] Last Admin: 09/28/16 21:40 Dose: 10 mg Ferrous Sulfate (Feosol) 325 mg PO BID [facility] Last Admin: 09/29/16 09:06 Dose: 325 mg Glipizide (Glucotrol Xl) 5 mg PO BID [facility] Last Admin: 09/29/16 09:07 Dose: 5 mg Home Med (Metformin Xr) 1,000 mg PO BID [facility] Hydromorphone HCl (Dilaudid) 2 mg PO Q4 PRN PRN Reason: pain (4-8) Hydromorphone HCl (Dilaudid) 4 mg PO Q4 PRN PRN Reason: pain (9-10) Ceftazidime/Avibactam 1.25 gm/ (Sodium Chloride) 100 mls @ 100 mls/hr IVPB Q8H [facility] Last Admin: 09/29/16 13:04 Dose: 100 mls/hr Insulin Detemir (Levemir) 5 units SC HS [facility] Last Admin: 09/28/16 22:14 Dose: 5 units Lactobacillus Acidophilus (Bacid Acidophilus) 1 cap PO BID [facility] Last Admin: 09/29/16 09:08 Dose: 1 cap Lactulose (Enulose) 20 gm PO DAILY PRN PRN Reason: Constipation Last Admin: 09/22/16 17:06 Dose: 20 gm Loratadine (Claritin) 10 mg PO DAILY [facility] Last Admin: 09/29/16 09:07 Dose: 10 mg Lorazepam (Ativan) 1 mg PO BID PRN PRN Reason: for anxiety Nystatin (Nystatin Oral Susp) 5 ml PO TID [facility] Last Admin: 09/29/16 12:13 Dose: Not Given Ondansetron HCl (Zofran Inj) 4 mg IVP Q4H PRN PRN Reason: Nausea/Vomiting Oxandrolone (Oxandrin) 5 mg PO BID [facility] Last Admin: 09/29/16 09:08 Dose: 5 mg Oxycodone HCl (Oxycontin Extended Release Tab) 20 mg PO Q8 [facility] Last Admin: 09/29/16 13:04 Dose: 20 mg Pantoprazole Sodium (Protonix Ec Tab) 40 mg PO DAILY [facility] Last Admin: 09/29/16 09:07 Dose: 40 mg Pioglitazone HCl (Actos) 30 mg PO DAILY [facility] Last Admin: 09/29/16 09:07 Dose: 30 mg Fluticasone/Salmeterol (Advair Diskus 500/50) 1 puff INH RBID [facility] Last Admin: 09/29/16 09:00 Dose: 1 puff Sitagliptin Phosphate (Januvia) 100 mg PO DAILY [facility] - Labs Labs: 09/26/16 06:30 09/28/16 05:30 - Head Exam Head Exam: ATRAUMATIC, NORMAL INSPECTION, NORMOCEPHALIC - Eye Exam Eye Exam: EOMI, Normal appearance, PERRL Pupil Exam: NORMAL ACCOMODATION - ENT Exam ENT Exam: Mucous Membranes Moist, Normal Exam - Neck Exam Neck Exam: Normal Inspection - Respiratory Exam Respiratory Exam: NORMAL BREATHING PATTERN - Cardiovascular Exam Cardiovascular Exam: REGULAR RHYTHM - GI/Abdominal Exam GI & Abdominal Exam: Normal Bowel Sounds - Rectal Exam Rectal Exam: NORMAL INSPECTION - Exam External exam: NORMAL EXTERNAL EXAM - Extremities Exam Extremities Exam: Normal Capillary Refill, Normal Inspection - Back Exam Back Exam: NORMAL INSPECTION - Neurological Exam Neurological Exam: Alert, Awake Neuro motor strength exam: Left Upper Extremity: 4, Right Upper Extremity: 4, Left Lower Extremity: 4, Right Lower Extremity: 2/1 (right BKA) - Psychiatric Exam Psychiatric exam: Normal Affect, Normal Mood - Skin Skin Exam: Dry, Intact Assessment and Plan (1) Abnormality of gait Assessment & Plan: R BKA physical, occupational, rec therapy. 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
[2016-09-29] MEDS: METFORMIN 500 MG PO SCH (16:52)
[2016-09-29] MEDS: Insulin Detemir 100 Units/ml Inj SC SCH (21:03)
[2016-09-30] MEDS: oxyCODONE 20 mg ER Tab (oxyCONTIN) PO SCH ×3 (06:17→21:34)
[2016-09-30 07:32] LABS: BASO % 0.5 % (0.0-2.0); EOS # 0.1 K/uL (0.0-0.7); EOS % 1.2 % (0.0-4.0); HEMATOCRIT 20.8 % (35.0-51.0); LYMPH % 12.7 % (20.0-40.0); MEAN CELL VOLUME 90.1 fl (80.0-94.0); MEAN CORPUSCULAR HEMOGLOBIN 28.8 pg (27.0-31.0); MEAN CORPUSCULAR HGB CONC 31.9 g/dL (33.0-37.0); MONO # 0.5 K/uL (0.0-0.8); MONO % 6.7 % (0.0-10.0); NEUT # 6.3 K/uL (1.8-7.0); NEUT % 78.9 % (50.0-75.0); NRBC % 0.1 % (0.0-0.0); RED CELL DISTRIBUTION WIDTH 15.9 % (11.5-14.5); WHITE BLOOD COUNT 7.9 K/uL (4.8-10.8)
[2016-09-30] MEDS: Albuterol-Ipratrop 3 mg / 0.5 (3 ml) UD INH SCH ×4 (07:34→19:38)
[2016-09-30 08:22] LABS: ALB/GLOB RATIO 0.6 (1.0-2.1); ALKALINE PHOSPHATASE 93 U/L (38-126); ALT/SGPT 15 U/L (21-72); AST/SGOT 47 U/L (17-59); BILIRUBIN,TOTAL 0.4 mg/dl (0.2-1.3); BLOOD UREA NITROGEN 15 mg/dl (9-20); CALCIUM 8.1 mg/dL (8.4-10.2); CARBON DIOXIDE 26 mmol/L (22-30); CHLORIDE 104 mmol/L (98-107); GFR AFRICAN-AMERICAN > 60; GLUCOSE,RANDOM 126 mg/dL (75-110); POTASSIUM 4.2 MMOL/L (3.6-5.0); SODIUM 141 mmol/l (132-148); TOTAL PROTEIN 6.7 G/DL (6.3-8.2)
--- NOTE | 2016-09-30 08:32 | CP.PCM.PN ---
Subjective - Date & Time of Evaluation Date of Evaluation: 09/30/16 Time of Evaluation: 08:32 - Subjective Subjective: feels better sob and cough improved Objective - Vital Signs/Intake and Output Vital Signs (last 24 hours): Temp Pulse Resp BP Pulse Ox 96.9 F L 84 20 142/72 98 09/29/16 20:08 09/29/16 21:10 09/29/16 20:08 09/29/16 21:10 09/29/16 20:08 - Medications Medications: Current Medications Acetaminophen (Tylenol 325mg Tab) 650 mg PO Q6 PRN PRN Reason: Fever >100.4 F Al Hydrox/Mg Hydrox/Simethicone (Maalox Plus 30 Ml) 30 ml PO Q6H PRN PRN Reason: Indigestion / Heartburn Last Admin: 09/29/16 21:08 Dose: 30 ml Albuterol/Ipratropium (Duoneb 3 Mg/0.5 Mg (3 Ml) Ud) 3 ml INH RQID [facility] Last Admin: 09/30/16 07:34 Dose: 3 ml Amiodarone HCl (Cordarone) [address] [facility] Last Admin: 09/29/16 21:10 Dose: 200 mg Clopidogrel Bisulfate (Plavix) 75 mg PO DAILY [facility] Last Admin: 09/29/16 09:06 Dose: 75 mg Clotrimazole (Lotrimin 1% Cream) 1 applic TOP BID [facility] Last Admin: 09/29/16 16:53 Dose: 1 applic Docusate Sodium (Colace) 100 mg PO TID [facility] Last Admin: 09/29/16 16:55 Dose: Not Given Escitalopram Oxalate (Lexapro) 10 mg PO [facility] Last Admin: 09/29/16 21:03 Dose: 10 mg Ferrous Sulfate (Feosol) 325 mg PO BID [facility] Last Admin: 09/29/16 16:53 Dose: 325 mg Glipizide (Glucotrol Xl) 5 mg PO BID [facility] Last Admin: 09/29/16 16:53 Dose: 5 mg Home Med (Metformin Xr) 1,000 mg PO BID [facility] Last Admin: 09/29/16 16:52 Dose: 1,000 mg Hydromorphone HCl (Dilaudid) 2 mg PO Q4 PRN PRN Reason: pain (4-8) Hydromorphone HCl (Dilaudid) 4 mg PO Q4 PRN PRN Reason: pain (9-10) Ceftazidime/Avibactam 1.25 gm/ (Sodium Chloride) 100 mls @ 100 mls/hr IVPB Q8H [facility] Last Admin: 09/30/16 04:30 Dose: 100 mls/hr Insulin Detemir (Levemir) 5 units SC HS [facility] Last Admin: 09/29/16 21:03 Dose: 5 units Lactobacillus Acidophilus (Bacid Acidophilus) 1 cap PO BID [facility] Last Admin: 09/29/16 16:55 Dose: 1 cap Lactulose (Enulose) 20 gm PO DAILY PRN PRN Reason: Constipation Last Admin: 09/22/16 17:06 Dose: 20 gm Loratadine (Claritin) 10 mg PO DAILY [facility] Last Admin: 09/29/16 09:07 Dose: 10 mg Lorazepam (Ativan) 1 mg PO BID PRN PRN Reason: for anxiety Nystatin (Nystatin Oral Susp) 5 ml PO TID [facility] Last Admin: 09/29/16 16:56 Dose: Not Given Ondansetron HCl (Zofran Inj) 4 mg IVP Q4H PRN PRN Reason: Nausea/Vomiting Oxandrolone (Oxandrin) 5 mg PO BID [facility] Last Admin: 09/29/16 16:55 Dose: 5 mg Oxycodone HCl (Oxycontin Extended Release Tab) 20 mg PO Q8 [facility] Last Admin: 09/30/16 06:17 Dose: 20 mg Pantoprazole Sodium (Protonix Ec Tab) 40 mg PO DAILY [facility] Last Admin: 09/29/16 09:07 Dose: 40 mg Pioglitazone HCl (Actos) 30 mg PO DAILY [facility] Last Admin: 09/29/16 09:07 Dose: 30 mg Fluticasone/Salmeterol (Advair Diskus 500/50) 1 puff INH RBID [facility] Last Admin: 09/29/16 20:44 Dose: 1 puff Sitagliptin Phosphate (Januvia) 100 mg PO DAILY [facility] - Labs Labs: 09/30/16 07:05 09/28/16 05:30 - Constitutional Appears: No Acute Distress - Head Exam Head Exam: ATRAUMATIC, NORMAL INSPECTION, NORMOCEPHALIC - Eye Exam Eye Exam: EOMI, Normal appearance, PERRL Pupil Exam: NORMAL ACCOMODATION, PERRL - ENT Exam ENT Exam: Mucous Membranes Moist, Normal Exam - Neck Exam Neck Exam: Full ROM, Normal Inspection. absent: Lymphadenopathy - Respiratory Exam Respiratory Exam: Prolonged Expiratory Phase, NORMAL BREATHING PATTERN - Cardiovascular Exam Cardiovascular Exam: REGULAR RHYTHM, +S1, +S2. absent: Murmur - GI/Abdominal Exam GI & Abdominal Exam: Soft, Normal Bowel Sounds. absent: Tenderness - Rectal Exam Rectal Exam: NORMAL INSPECTION - Extremities Exam Extremities Exam: Full ROM, Normal Capillary Refill. absent: Joint Swelling, Pedal Edema - Back Exam Back Exam: NORMAL INSPECTION - Neurological Exam Neurological Exam: Abnormal Gait, Alert, Awake, CN II-XII Intact, Oriented x3 - Psychiatric Exam Psychiatric exam: Normal Affect, Normal Mood - Skin Skin Exam: Dry, Intact, Normal Color, Warm Assessment and Plan - Assessment and Plan (Free Text) Assessment: pneumonia-clinically improved--cxr findings may lag for weeks Plan: continue present rx serial cxrs
[2016-09-30 08:58] LABS: BASO # 0.1 K/uL (0.0-0.2); BASO % 0.6 % (0.0-2.0); EOS # 0.1 K/uL (0.0-0.7); EOS % 1.2 % (0.0-4.0); HEMATOCRIT 26.9 % (35.0-51.0); LYMPH # 1.2 K/uL (1.0-4.3); LYMPH % 12.1 % (20.0-40.0); MEAN CELL VOLUME 87.6 fl (80.0-94.0); MEAN CORPUSCULAR HEMOGLOBIN 28.7 pg (27.0-31.0); MEAN CORPUSCULAR HGB CONC 32.8 g/dL (33.0-37.0); MEAN PLATELET VOLUME 6.7 fl (7.2-11.7); MONO # 0.6 K/uL (0.0-0.8); MONO % 6.1 % (0.0-10.0); NEUT # 7.7 K/uL (1.8-7.0); NRBC % 0.1 % (0.0-0.0); RED CELL DISTRIBUTION WIDTH 15.6 % (11.5-14.5); WHITE BLOOD COUNT 9.6 K/uL (4.8-10.8)
[2016-09-30] MEDS: Fluticasone-Salmeterol 500-50mcg Diskus INH SCH ×2 (09:00→20:00)
[2016-09-30] MEDS: Lactobacillus Acidophilus 500 MU Cap PO SCH ×2 (09:16→17:35)
[2016-09-30] MEDS: METFORMIN 500 MG PO SCH ×2 (09:17→17:33)
[2016-09-30] MEDS: Pantoprazole 40 mg EC Tab PO SCH (09:17)
[2016-09-30] MEDS: Nystatin 100,000 Units/ml Oral Susp 5 ml UD PO SCH ×3 (09:18→17:33)
[2016-09-30] MEDS: GlipiZIDE 5 mg SR Tab PO SCH ×2 (09:21→17:32)
[2016-09-30] MEDS: EPOETIN ALFA 10,000 UNIT/ML ML SC SCH (12:33)
--- NOTE | 2016-09-30 12:53 | CP.PCM.PN ---
Subjective - Date & Time of Evaluation Date of Evaluation: 09/30/16 Time of Evaluation: 09:00 - Subjective Subjective: feels well pneumonia improving Objective - Vital Signs/Intake and Output Vital Signs (last 24 hours): Temp Pulse Resp BP Pulse Ox 97.8 F 78 20 142/68 97 09/30/16 09:06 09/30/16 09:06 09/30/16 09:06 09/30/16 09:06 09/30/16 09:06 - Medications Medications: Current Medications Acetaminophen (Tylenol 325mg Tab) 650 mg PO Q6 PRN PRN Reason: Fever >100.4 F Al Hydrox/Mg Hydrox/Simethicone (Maalox Plus 30 Ml) 30 ml PO Q6H PRN PRN Reason: Indigestion / Heartburn Last Admin: 09/29/16 21:08 Dose: 30 ml Albuterol/Ipratropium (Duoneb 3 Mg/0.5 Mg (3 Ml) Ud) 3 ml INH RQID [facility] Last Admin: 09/30/16 11:02 Dose: Not Given Amiodarone HCl (Cordarone) 200 mg PO [facility] Last Admin: 09/29/16 21:10 Dose: 200 mg Clopidogrel Bisulfate (Plavix) 75 mg PO DAILY [facility] Last Admin: 09/30/16 09:17 Dose: 75 mg Clotrimazole (Lotrimin 1% Cream) 1 applic TOP BID [facility] Last Admin: 09/30/16 09:18 Dose: 1 applic Docusate Sodium (Colace) 100 mg PO TID [facility] Last Admin: 09/30/16 12:33 Dose: Not Given Epoetin Mp (Procrit) 10,000 unit SC MWF [facility] Last Admin: 09/30/16 12:33 Dose: 10,000 unit Escitalopram Oxalate (Lexapro) 10 mg PO HS [facility] Last Admin: 09/29/16 21:03 Dose: 10 mg Ferrous Sulfate (Feosol) 325 mg PO BID [facility] Last Admin: 09/30/16 09:16 Dose: 325 mg Glipizide (Glucotrol Xl) 5 mg PO BID [facility] Last Admin: 09/30/16 09:21 Dose: 5 mg Home Med (Metformin Xr) 1,000 mg PO BID [facility] Last Admin: 09/30/16 09:17 Dose: 1,000 mg Hydromorphone HCl (Dilaudid) 2 mg PO Q4 PRN PRN Reason: pain (4-8) Hydromorphone HCl (Dilaudid) 4 mg PO Q4 PRN PRN Reason: pain (9-10) Ceftazidime/Avibactam 1.25 gm/ (Sodium Chloride) 100 mls @ 100 mls/hr IVPB Q8H [facility] Last Admin: 09/30/16 12:34 Dose: 100 mls/hr Insulin Detemir (Levemir) 5 units SC HS [facility] Last Admin: 09/29/16 21:03 Dose: 5 units Lactobacillus Acidophilus (Bacid Acidophilus) 1 cap PO BID [facility] Last Admin: 09/30/16 09:16 Dose: 1 cap Lactulose (Enulose) 20 gm PO DAILY PRN PRN Reason: Constipation Last Admin: 09/22/16 17:06 Dose: 20 gm Loratadine (Claritin) 10 mg PO DAILY [facility] Last Admin: 09/30/16 09:20 Dose: 10 mg Lorazepam (Ativan) 1 mg PO BID PRN PRN Reason: for anxiety Nystatin (Nystatin Oral Susp) 5 ml PO TID [facility] Last Admin: 09/30/16 12:36 Dose: Not Given Ondansetron HCl (Zofran Inj) 4 mg IVP Q4H PRN PRN Reason: Nausea/Vomiting Oxandrolone (Oxandrin) 5 mg PO BID [facility] Last Admin: 09/30/16 09:25 Dose: 5 mg Oxycodone HCl (Oxycontin Extended Release Tab) 20 mg PO Q8 [facility] Last Admin: 09/30/16 06:17 Dose: 20 mg Pantoprazole Sodium (Protonix Ec Tab) 40 mg PO DAILY [facility] Last Admin: 09/30/16 09:17 Dose: 40 mg Pioglitazone HCl (Actos) 30 mg PO DAILY [facility] Last Admin: 09/30/16 09:19 Dose: 30 mg Fluticasone/Salmeterol (Advair Diskus 500/50) 1 puff INH RBID [facility] Last Admin: 09/30/16 09:00 Dose: 1 puff Sitagliptin Phosphate (Januvia) 100 mg PO DAILY [facility] Last Admin: 09/30/16 09:18 Dose: 100 mg - Labs Labs: 09/30/16 08:53 09/30/16 07:05 - Constitutional Appears: Non-toxic, Chronically Ill - Head Exam Head Exam: NORMOCEPHALIC - Eye Exam Eye Exam: PERRL. absent: Scleral icterus - ENT Exam ENT Exam: Mucous Membranes Dry - Neck Exam Neck Exam: absent: Lymphadenopathy - Respiratory Exam Respiratory Exam: Decreased Breath Sounds, Clear to Ausculation Bilateral - Cardiovascular Exam Cardiovascular Exam: REGULAR RHYTHM, +S1, +S2 - GI/Abdominal Exam GI & Abdominal Exam: Distended, Soft. absent: Tenderness - Rectal Exam Rectal Exam: Deferred - Exam Exam: NORMAL INSPECTION - Extremities Exam Extremities Exam: absent: Calf Tenderness, Pedal Edema - Back Exam Back Exam: absent: CVA tenderness (L), CVA tenderness (R) - Neurological Exam Neurological Exam: Alert, Awake Assessment and Plan (1) Abdominal pain Status: Acute (2) Osteomyelitis of foot, acute Status: Acute (3) Uncontrolled diabetes mellitus Status: Acute (4) Pneumonia due to aerobic bacteria Status: Acute
--- NOTE | 2016-09-30 16:15 | CP.PCM.PN ---
Subjective - Date & Time of Evaluation Date of Evaluation: 09/30/16 Time of Evaluation: 16:14 - Subjective Subjective: Patient is in room with continued loose stool which has taken a toll on him following his + cough and ABX treatment not really able to participate in full therapy session ID is involved continue current care and will clearly need JARRETT and cannot go home on d/c Objective - Vital Signs/Intake and Output Vital Signs (last 24 hours): Temp Pulse Resp BP Pulse Ox 97.8 F 78 20 142/68 97 09/30/16 09:06 09/30/16 09:06 09/30/16 09:06 09/30/16 09:06 09/30/16 09:06 - Medications Medications: Current Medications Acetaminophen (Tylenol 325mg Tab) 650 mg PO Q6 PRN PRN Reason: Fever >100.4 F Al Hydrox/Mg Hydrox/Simethicone (Maalox Plus 30 Ml) 30 ml PO Q6H PRN PRN Reason: Indigestion / Heartburn Last Admin: 09/29/16 21:08 Dose: 30 ml Albuterol/Ipratropium (Duoneb 3 Mg/0.5 Mg (3 Ml) Ud) 3 ml INH RQID [facility] Last Admin: 09/30/16 16:09 Dose: 3 ml Amiodarone HCl (Cordarone) 200 mg PO [facility] Last Admin: 09/29/16 21:10 Dose: 200 mg Clopidogrel Bisulfate (Plavix) 75 mg PO DAILY [facility] Last Admin: 09/30/16 09:17 Dose: 75 mg Clotrimazole (Lotrimin 1% Cream) 1 applic TOP BID [facility] Last Admin: 09/30/16 09:18 Dose: 1 applic Docusate Sodium (Colace) 100 mg PO TID [facility] Last Admin: 09/30/16 12:33 Dose: Not Given Epoetin Mp (Procrit) 10,000 unit SC MWF [facility] Last Admin: 09/30/16 12:33 Dose: 10,000 unit Escitalopram Oxalate (Lexapro) 10 mg PO HS [facility] Last Admin: 09/29/16 21:03 Dose: 10 mg Ferrous Sulfate (Feosol) 325 mg PO BID [facility] Last Admin: 09/30/16 09:16 Dose: 325 mg Glipizide (Glucotrol Xl) 5 mg PO BID [facility] Last Admin: 09/30/16 09:21 Dose: 5 mg Home Med (Metformin Xr) 1,000 mg PO BID [facility] Last Admin: 09/30/16 09:17 Dose: 1,000 mg Hydromorphone HCl (Dilaudid) 2 mg PO Q4 PRN PRN Reason: pain (4-8) Hydromorphone HCl (Dilaudid) 4 mg PO Q4 PRN PRN Reason: pain (9-10) Ceftazidime/Avibactam 1.25 gm/ (Sodium Chloride) 100 mls @ 100 mls/hr IVPB Q8H [facility] Last Admin: 09/30/16 12:34 Dose: 100 mls/hr Insulin Detemir (Levemir) 5 units SC HS [facility] Last Admin: 09/29/16 21:03 Dose: 5 units Lactobacillus Acidophilus (Bacid Acidophilus) 1 cap PO BID [facility] Last Admin: 09/30/16 09:16 Dose: 1 cap Lactulose (Enulose) 20 gm PO DAILY PRN PRN Reason: Constipation Last Admin: 09/22/16 17:06 Dose: 20 gm Loratadine (Claritin) 10 mg PO DAILY [facility] Last Admin: 09/30/16 09:20 Dose: 10 mg Lorazepam (Ativan) 1 mg PO BID PRN PRN Reason: for anxiety Nystatin (Nystatin Oral Susp) 5 ml PO TID [facility] Last Admin: 09/30/16 12:36 Dose: Not Given Ondansetron HCl (Zofran Inj) 4 mg IVP Q4H PRN PRN Reason: Nausea/Vomiting Oxandrolone (Oxandrin) 5 mg PO BID [facility] Last Admin: 09/30/16 09:25 Dose: 5 mg Oxycodone HCl (Oxycontin Extended Release Tab) 20 mg PO Q8 [facility] Last Admin: 09/30/16 13:07 Dose: 20 mg Pantoprazole Sodium (Protonix Ec Tab) 40 mg PO DAILY [facility] Last Admin: 09/30/16 09:17 Dose: 40 mg Pioglitazone HCl (Actos) 30 mg PO DAILY [facility] Last Admin: 09/30/16 09:19 Dose: 30 mg Fluticasone/Salmeterol (Advair Diskus 500/50) 1 puff INH RBID [facility] Last Admin: 09/30/16 09:00 Dose: 1 puff Sitagliptin Phosphate (Januvia) 100 mg PO DAILY [facility] Last Admin: 09/30/16 09:18 Dose: 100 mg - Labs Labs: 09/30/16 08:53 09/30/16 07:05
[2016-09-30 20:25] LABS: INTESTINAL ISOENZYME 5 % (1-24); MACROHEPATIC ISOENZYME 0 % (<=0); PLACENTAL ISOENZYME 0 % (<=0)
[2016-09-30] MEDS: Insulin Detemir 100 Units/ml Inj SC SCH (21:36)
[2016-10-01] MEDS: oxyCODONE 20 mg ER Tab (oxyCONTIN) PO SCH ×3 (06:15→22:08)
[2016-10-01] MEDS: Albuterol-Ipratrop 3 mg / 0.5 (3 ml) UD INH SCH ×4 (07:37→19:09)
[2016-10-01] MEDS: Fluticasone-Salmeterol 500-50mcg Diskus INH SCH ×2 (08:00→22:07)
[2016-10-01] MEDS: METFORMIN 500 MG PO SCH ×2 (09:17→17:39)
[2016-10-01] MEDS: GlipiZIDE 5 mg SR Tab PO SCH ×2 (09:18→17:41)
[2016-10-01] MEDS: Nystatin 100,000 Units/ml Oral Susp 5 ml UD PO SCH ×3 (09:20→17:41)
[2016-10-01] MEDS: Lactobacillus Acidophilus 500 MU Cap PO SCH ×2 (09:21→17:38)
[2016-10-01] MEDS: Pantoprazole 40 mg EC Tab PO SCH (09:33)
[2016-10-01] MEDS: Alum-Mag Hydrox-Simethicone Susp (30 mL) PO PRN (12:16)
[2016-10-01] MEDS ORDERED: Artificial Tears Opht Soln OU PRN (13:07)
[2016-10-01] MEDS ORDERED: Alum-Mag Hydrox-Simethicone Susp (30 mL) PO PRN (17:11)
[2016-10-01] MEDS: Insulin Detemir 100 Units/ml Inj SC SCH (22:09)
[2016-10-02] MEDS: oxyCODONE 20 mg ER Tab (oxyCONTIN) PO SCH ×3 (05:15→22:33)
[2016-10-02] MEDS: Albuterol-Ipratrop 3 mg / 0.5 (3 ml) UD INH SCH ×4 (07:07→19:23)
[2016-10-02] MEDS: Fluticasone-Salmeterol 500-50mcg Diskus INH SCH ×2 (08:42→21:06)
[2016-10-02] MEDS: METFORMIN 500 MG PO SCH ×2 (08:42→16:25)
[2016-10-02] MEDS: Lactobacillus Acidophilus 500 MU Cap PO SCH ×2 (08:42→16:23)
[2016-10-02] MEDS: Pantoprazole 40 mg EC Tab PO SCH (08:43)
[2016-10-02] MEDS: GlipiZIDE 5 mg SR Tab PO SCH ×2 (08:43→16:24)
[2016-10-02] MEDS: Nystatin 100,000 Units/ml Oral Susp 5 ml UD PO SCH ×3 (08:44→16:17)
[2016-10-02] MEDS: EPOETIN ALFA 10,000 UNIT/ML ML SC SCH (08:45)
--- NOTE | 2016-10-02 11:30 | CP.PCM.PN ---
Subjective - Date & Time of Evaluation Date of Evaluation: 10/02/16 Time of Evaluation: 11:30 - Subjective Subjective: SOB IMPROVED DIARRHEA RESOLVING Objective - Vital Signs/Intake and Output Vital Signs (last 24 hours): Temp Pulse Resp BP Pulse Ox 97.1 F L 99 H 20 128/76 98 10/02/16 08:11 10/02/16 08:11 10/02/16 08:11 10/02/16 08:11 10/02/16 08:11 - Medications Medications: Current Medications Acetaminophen (Tylenol 325mg Tab) 650 mg PO Q6 PRN PRN Reason: Fever >100.4 F Al Hydrox/Mg Hydrox/Simethicone (Maalox Plus 30 Ml) 30 ml PO Q6H PRN PRN Reason: Indigestion / Heartburn Last Admin: 10/02/16 04:00 Dose: 30 ml Albuterol/Ipratropium (Duoneb 3 Mg/0.5 Mg (3 Ml) Ud) 3 ml INH RQID [facility] Last Admin: 10/02/16 07:07 Dose: 3 ml Amiodarone HCl (Cordarone) 200 mg PO HS [facility] Last Admin: 10/01/16 22:09 Dose: 200 mg Artificial Tears (Artificial Tears) 2 drop OU Q6 PRN PRN Reason: Dry eyes Last Admin: 10/01/16 14:20 Dose: 2 drop Clopidogrel Bisulfate (Plavix) 75 mg PO DAILY [facility] Last Admin: 10/02/16 08:45 Dose: 75 mg Clotrimazole (Lotrimin 1% Cream) 1 applic TOP BID [facility] Last Admin: 10/02/16 08:44 Dose: 1 applic Docusate Sodium (Colace) 100 mg PO TID [facility] Last Admin: 10/02/16 08:44 Dose: 100 mg Epoetin Mp (Procrit) 10,000 unit SC MWF [facility] Last Admin: 10/02/16 08:45 Dose: 10,000 unit Escitalopram Oxalate (Lexapro) 10 mg PO HS [facility] Last Admin: 10/01/16 22:08 Dose: 10 mg Ferrous Sulfate (Feosol) 325 mg PO BID [facility] Last Admin: 10/02/16 08:43 Dose: 325 mg Glipizide (Glucotrol Xl) 5 mg PO BID [facility] Last Admin: 10/02/16 08:43 Dose: 5 mg Home Med (Metformin Xr) 1,000 mg PO BID [facility] Last Admin: 10/02/16 08:42 Dose: 1,000 mg Hydromorphone HCl (Dilaudid) 2 mg PO Q4 PRN PRN Reason: pain (4-8) Hydromorphone HCl (Dilaudid) 4 mg PO Q4 PRN PRN Reason: pain (9-10) Ceftazidime/Avibactam 1.25 gm/ (Sodium Chloride) 100 mls @ 100 mls/hr IVPB Q8H [facility] Last Admin: 10/02/16 05:14 Dose: 100 mls/hr Insulin Detemir (Levemir) 5 units SC HS [facility] Last Admin: 10/01/16 22:09 Dose: 5 units Lactobacillus Acidophilus (Bacid Acidophilus) 1 cap PO BID [facility] Last Admin: 10/02/16 08:42 Dose: 1 cap Lactulose (Enulose) 20 gm PO DAILY PRN PRN Reason: Constipation Last Admin: 09/22/16 17:06 Dose: 20 gm Loratadine (Claritin) 10 mg PO DAILY [facility] Last Admin: 10/02/16 08:43 Dose: 10 mg Lorazepam (Ativan) 1 mg PO BID PRN PRN Reason: for anxiety Nystatin (Nystatin Oral Susp) 5 ml PO TID [facility] Last Admin: 10/02/16 08:44 Dose: Not Given Ondansetron HCl (Zofran Inj) 4 mg IVP Q4H PRN PRN Reason: Nausea/Vomiting Oxandrolone (Oxandrin) 5 mg PO BID [facility] Last Admin: 10/02/16 08:44 Dose: 5 mg Oxycodone HCl (Oxycontin Extended Release Tab) 20 mg PO Q8 [facility] Last Admin: 10/02/16 05:15 Dose: 20 mg Pantoprazole Sodium (Protonix Ec Tab) 40 mg PO DAILY [facility] Last Admin: 10/02/16 08:43 Dose: 40 mg Pioglitazone HCl (Actos) 30 mg PO DAILY [facility] Last Admin: 10/02/16 08:46 Dose: 30 mg Fluticasone/Salmeterol (Advair Diskus 500/50) 1 puff INH RBID [facility] Last Admin: 10/02/16 08:42 Dose: 1 puff Sitagliptin Phosphate (Januvia) 100 mg PO DAILY [facility] Last Admin: 04/14/17 08:43 Dose: 100 mg - Labs Labs: 09/30/16 08:53 09/30/16 07:05 - Constitutional Appears: No Acute Distress - Head Exam Head Exam: ATRAUMATIC, NORMAL INSPECTION, NORMOCEPHALIC - Eye Exam Eye Exam: EOMI, Normal appearance, PERRL Pupil Exam: NORMAL ACCOMODATION, PERRL - ENT Exam ENT Exam: Mucous Membranes Moist, Normal Exam - Neck Exam Neck Exam: Full ROM, Normal Inspection. absent: Lymphadenopathy - Respiratory Exam Respiratory Exam: Prolonged Expiratory Phase, NORMAL BREATHING PATTERN - Cardiovascular Exam Cardiovascular Exam: REGULAR RHYTHM, +S1, +S2. absent: Murmur - GI/Abdominal Exam GI & Abdominal Exam: Soft, Normal Bowel Sounds. absent: Tenderness - Rectal Exam Rectal Exam: NORMAL INSPECTION - Extremities Exam Extremities Exam: Full ROM, Normal Capillary Refill. absent: Joint Swelling, Pedal Edema Additional comments: S/P R BKA - Back Exam Back Exam: NORMAL INSPECTION - Neurological Exam Neurological Exam: Alert, Awake, CN II-XII Intact, Oriented x3 - Psychiatric Exam Psychiatric exam: Normal Affect, Normal Mood - Skin Skin Exam: Dry, Intact, Normal Color, Warm Assessment and Plan - Assessment and Plan (Free Text) Assessment: PNEUMONIA IMPROVING Plan: CXR IN AM
--- NOTE | 2016-10-02 12:36 | CP.PCM.PN ---
Subjective - Date & Time of Evaluation Date of Evaluation: 10/02/16 Time of Evaluation: 12:36 - Subjective Subjective: Has loose stool Has no chest pain or SOB Accuchecks have improved so well. On levemir and glipizide added to regimen Objective - Vital Signs/Intake and Output Vital Signs (last 24 hours): Temp Pulse Resp BP Pulse Ox 97.1 F L 99 H 20 128/76 98 10/02/16 08:11 10/02/16 08:11 10/02/16 08:11 10/02/16 08:11 10/02/16 08:11 - Medications Medications: Current Medications Acetaminophen (Tylenol 325mg Tab) 650 mg PO Q6 PRN PRN Reason: Fever >100.4 F Al Hydrox/Mg Hydrox/Simethicone (Maalox Plus 30 Ml) 30 ml PO Q6H PRN PRN Reason: Indigestion / Heartburn Last Admin: 10/02/16 04:00 Dose: 30 ml Albuterol/Ipratropium (Duoneb 3 Mg/0.5 Mg (3 Ml) Ud) 3 ml INH RQID [facility] Last Admin: 10/02/16 11:35 Dose: 3 ml Amiodarone HCl (Cordarone) 200 mg PO [facility] Artificial Tears (Artificial Tears) 2 drop OU Q6 PRN PRN Reason: Dry eyes Last Admin: 10/01/16 14:20 Dose: 2 drop Clopidogrel Bisulfate (Plavix) 75 mg PO DAILY [facility] Last Admin: 10/02/16 08:45 Dose: 75 mg Clotrimazole (Lotrimin 1% Cream) 1 applic TOP BID [facility] Last Admin: 10/02/16 08:44 Dose: 1 applic Docusate Sodium (Colace) 100 mg PO TID [facility] Last Admin: 10/02/16 12:20 Dose: Not Given Epoetin Mp (Procrit) 10,000 unit SC MWF [facility] Last Admin: 10/02/16 08:45 Dose: 10,000 unit Escitalopram Oxalate (Lexapro) 10 mg PO HS [facility] Last Admin: 10/01/16 22:08 Dose: 10 mg Ferrous Sulfate (Feosol) 325 mg PO BID [facility] Last Admin: 10/02/16 08:43 Dose: 325 mg Glipizide (Glucotrol Xl) 10 mg PO BRK [facility] Glipizide (Glucotrol Xl) 5 mg PO ACD [facility] Home Med (Metformin Xr) 1,000 mg PO 1200,1700 [facility] Hydromorphone HCl (Dilaudid) 2 mg PO Q4 PRN PRN Reason: pain (4-8) Hydromorphone HCl (Dilaudid) 4 mg PO Q4 PRN PRN Reason: pain (9-10) Ceftazidime/Avibactam 1.25 gm/ (Sodium Chloride) 100 mls @ 100 mls/hr IVPB Q8H [facility] Last Admin: 10/02/16 05:14 Dose: 100 mls/hr Insulin Detemir (Levemir) 5 units SC HS [facility] Last Admin: 10/01/16 22:09 Dose: 5 units Lactobacillus Acidophilus (Bacid Acidophilus) 1 cap PO BID [facility] Last Admin: 10/02/16 08:42 Dose: 1 cap Lactulose (Enulose) 20 gm PO DAILY PRN PRN Reason: Constipation Last Admin: 09/22/16 17:06 Dose: 20 gm Loratadine (Claritin) 10 mg PO DAILY [facility] Last Admin: 10/02/16 08:43 Dose: 10 mg Lorazepam (Ativan) 1 mg PO BID PRN PRN Reason: for anxiety Nystatin (Nystatin Oral Susp) 5 ml PO TID [facility] Last Admin: 10/02/16 12:20 Dose: Not Given Ondansetron HCl (Zofran Inj) 4 mg IVP Q4H PRN PRN Reason: Nausea/Vomiting Oxandrolone (Oxandrin) 5 mg PO BID [facility] Last Admin: 10/02/16 08:44 Dose: 5 mg Oxycodone HCl (Oxycontin Extended Release Tab) 20 mg PO Q8 [facility] Last Admin: 10/02/16 05:15 Dose: 20 mg Pantoprazole Sodium (Protonix Ec Tab) 40 mg PO DAILY [facility] Pioglitazone HCl (Actos) 30 mg PO 1100 [facility] Fluticasone/Salmeterol (Advair Diskus 500/50) 1 puff INH RBID [facility] Last Admin: 10/02/16 08:42 Dose: 1 puff Sitagliptin Phosphate (Januvia) 100 mg PO DAILY [facility] Last Admin: 10/02/16 08:43 Dose: 100 mg - Labs Labs: 09/30/16 08:53 09/30/16 07:05 - Head Exam Head Exam: NORMAL INSPECTION - Eye Exam Eye Exam: Normal appearance - ENT Exam ENT Exam: Mucous Membranes Moist - Respiratory Exam Respiratory Exam: Clear to Ausculation Bilateral - Cardiovascular Exam Cardiovascular Exam: REGULAR RHYTHM - GI/Abdominal Exam GI & Abdominal Exam: Normal Bowel Sounds - Neurological Exam Neurological Exam: CN II-XII Intact, Oriented x3 Assessment and Plan (1) CKD (chronic kidney disease), stage II Status: Chronic (2) Diabetes mellitus Status: Chronic (3) Hypertension Status: Chronic (4) PVD (peripheral vascular disease) with claudication Status: Chronic (5) Abnormality of gait Status: Acute (6) Paroxysmal atrial fibrillation Status: Acute (7) 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
--- NOTE | 2016-10-02 13:48 | CP.PCM.PN ---
Subjective - Date & Time of Evaluation Date of Evaluation: 10/02/16 Time of Evaluation: 09:00 - Subjective Subjective: cxr pending rx in progress Objective - Vital Signs/Intake and Output Vital Signs (last 24 hours): Temp Pulse Resp BP Pulse Ox 97.1 F L 99 H 20 128/76 98 10/02/16 08:11 10/02/16 08:11 10/02/16 08:11 10/02/16 08:11 10/02/16 08:11 - Medications Medications: Current Medications Acetaminophen (Tylenol 325mg Tab) 650 mg PO Q6 PRN PRN Reason: Fever >100.4 F Al Hydrox/Mg Hydrox/Simethicone (Maalox Plus 30 Ml) 30 ml PO Q6H PRN PRN Reason: Indigestion / Heartburn Last Admin: 10/02/16 04:00 Dose: 30 ml Albuterol/Ipratropium (Duoneb 3 Mg/0.5 Mg (3 Ml) Ud) 3 ml INH RQID [facility] Last Admin: 10/02/16 11:35 Dose: 3 ml Amiodarone HCl (Cordarone) 200 mg PO [facility] Artificial Tears (Artificial Tears) 2 drop OU Q6 PRN PRN Reason: Dry eyes Last Admin: 10/01/16 14:20 Dose: 2 drop Clopidogrel Bisulfate (Plavix) 75 mg PO DAILY [facility] Last Admin: 10/02/16 08:45 Dose: 75 mg Clotrimazole (Lotrimin 1% Cream) 1 applic TOP BID [facility] Last Admin: 10/02/16 08:44 Dose: 1 applic Docusate Sodium (Colace) 100 mg PO TID [facility] Last Admin: 10/02/16 12:20 Dose: Not Given Epoetin Mp (Procrit) 10,000 unit SC MWF [facility] Last Admin: 10/02/16 08:45 Dose: 10,000 unit Escitalopram Oxalate (Lexapro) 10 mg PO HS [facility] Last Admin: 10/01/16 22:08 Dose: 10 mg Ferrous Sulfate (Feosol) 325 mg PO BID [facility] Last Admin: 10/02/16 08:43 Dose: 325 mg Glipizide (Glucotrol Xl) 10 mg PO BRK [facility] Glipizide (Glucotrol Xl) 5 mg PO ACD [facility] Home Med (Metformin Xr) 1,000 mg PO 1200,1700 [facility] Hydromorphone HCl (Dilaudid) 2 mg PO Q4 PRN PRN Reason: pain (4-8) Hydromorphone HCl (Dilaudid) 4 mg PO Q4 PRN PRN Reason: pain (9-10) Ceftazidime/Avibactam 1.25 gm/ (Sodium Chloride) 100 mls @ 100 mls/hr IVPB Q8H [facility] Last Admin: 10/02/16 13:04 Dose: 100 mls/hr Insulin Detemir (Levemir) 5 units SC HS [facility] Last Admin: 10/01/16 22:09 Dose: 5 units Lactobacillus Acidophilus (Bacid Acidophilus) 1 cap PO BID [facility] Last Admin: 10/02/16 08:42 Dose: 1 cap Lactulose (Enulose) 20 gm PO DAILY PRN PRN Reason: Constipation Last Admin: 09/22/16 17:06 Dose: 20 gm Loratadine (Claritin) 10 mg PO DAILY [facility] Last Admin: 10/02/16 08:43 Dose: 10 mg Lorazepam (Ativan) 1 mg PO BID PRN PRN Reason: for anxiety Nystatin (Nystatin Oral Susp) 5 ml PO TID [facility] Last Admin: 10/02/16 12:20 Dose: Not Given Ondansetron HCl (Zofran Inj) 4 mg IVP Q4H PRN PRN Reason: Nausea/Vomiting Oxandrolone (Oxandrin) 5 mg PO BID [facility] Last Admin: 10/02/16 08:44 Dose: 5 mg Oxycodone HCl (Oxycontin Extended Release Tab) 20 mg PO Q8 [facility] Last Admin: 10/02/16 05:15 Dose: 20 mg Pantoprazole Sodium (Protonix Ec Tab) 40 mg PO DAILY [facility] Pioglitazone HCl (Actos) 30 mg PO 1100 [facility] Fluticasone/Salmeterol (Advair Diskus 500/50) 1 puff INH RBID [facility] Last Admin: 10/02/16 08:42 Dose: 1 puff Sitagliptin Phosphate (Januvia) 100 mg PO DAILY [facility] Last Admin: 10/02/16 08:43 Dose: 100 mg - Labs Labs: 09/30/16 08:53 09/30/16 07:05 - Constitutional Appears: Non-toxic, Chronically Ill - Head Exam Head Exam: NORMOCEPHALIC - Eye Exam Eye Exam: absent: Scleral icterus - ENT Exam ENT Exam: Mucous Membranes Dry - Neck Exam Neck Exam: absent: Lymphadenopathy - Respiratory Exam Respiratory Exam: Decreased Breath Sounds - Cardiovascular Exam Cardiovascular Exam: REGULAR RHYTHM - GI/Abdominal Exam GI & Abdominal Exam: Distended, Soft - Rectal Exam Rectal Exam: Deferred - Exam Exam: NORMAL INSPECTION - Extremities Exam Extremities Exam: absent: Pedal Edema - Back Exam Back Exam: absent: CVA tenderness (L), CVA tenderness (R) Assessment and Plan (1) Abdominal pain Status: Acute (2) Osteomyelitis of foot, acute Status: Acute (3) Uncontrolled diabetes mellitus Status: Acute (4) Pneumonia due to aerobic bacteria Status: Acute
--- NOTE | 2016-10-02 15:31 | CP.PCM.PN ---
Subjective - Date & Time of Evaluation Date of Evaluation: 10/02/16 Time of Evaluation: 15:29 - Subjective Subjective: Patient seen in gym, finally able to get oob no dizziness now. felt to be possibly related to Metformin with GI problems, which happened to his and also to him in the past with this medication continue current care Objective - Vital Signs/Intake and Output Vital Signs (last 24 hours): Temp Pulse Resp BP Pulse Ox 97.1 F L 99 H 20 128/76 98 10/02/16 08:11 10/02/16 08:11 10/02/16 08:11 10/02/16 08:11 10/02/16 08:11 - Medications Medications: Current Medications Acetaminophen (Tylenol 325mg Tab) 650 mg PO Q6 PRN PRN Reason: Fever >100.4 F Al Hydrox/Mg Hydrox/Simethicone (Maalox Plus 30 Ml) 30 ml PO Q6H PRN PRN Reason: Indigestion / Heartburn Last Admin: 10/02/16 04:00 Dose: 30 ml Albuterol/Ipratropium (Duoneb 3 Mg/0.5 Mg (3 Ml) Ud) 3 ml INH RQID [facility] Last Admin: 10/02/16 11:35 Dose: 3 ml Amiodarone HCl (Cordarone) 200 mg PO HS [facility] Artificial Tears (Artificial Tears) 2 drop OU Q6 PRN PRN Reason: Dry eyes Last Admin: 10/01/16 14:20 Dose: 2 drop Clopidogrel Bisulfate (Plavix) 75 mg PO DAILY [facility] Last Admin: 10/02/16 08:45 Dose: 75 mg Clotrimazole (Lotrimin 1% Cream) 1 applic TOP BID [facility] Last Admin: 10/02/16 08:44 Dose: 1 applic Docusate Sodium (Colace) 100 mg PO TID [facility] Last Admin: 10/02/16 12:20 Dose: Not Given Epoetin Mp (Procrit) 10,000 unit SC MWF [facility] Last Admin: 10/02/16 08:45 Dose: 10,000 unit Escitalopram Oxalate (Lexapro) 10 mg PO HS [facility] Last Admin: 10/01/16 22:08 Dose: 10 mg Ferrous Sulfate (Feosol) 325 mg PO BID [facility] Last Admin: 10/02/16 08:43 Dose: 325 mg Glipizide (Glucotrol Xl) 10 mg PO BRK [facility] Glipizide (Glucotrol Xl) 5 mg PO ACD [facility] Home Med (Metformin Xr) 1,000 mg PO 1200,1700 [facility] Hydromorphone HCl (Dilaudid) 2 mg PO Q4 PRN PRN Reason: pain (4-8) Hydromorphone HCl (Dilaudid) 4 mg PO Q4 PRN PRN Reason: pain (9-10) Ceftazidime/Avibactam 1.25 gm/ (Sodium Chloride) 100 mls @ 100 mls/hr IVPB Q8H [facility] Last Admin: 10/02/16 13:04 Dose: 100 mls/hr Insulin Detemir (Levemir) 5 units SC HS [facility] Last Admin: 10/01/16 22:09 Dose: 5 units Lactobacillus Acidophilus (Bacid Acidophilus) 1 cap PO BID [facility] Last Admin: 10/02/16 08:42 Dose: 1 cap Lactulose (Enulose) 20 gm PO DAILY PRN PRN Reason: Constipation Last Admin: 09/22/16 17:06 Dose: 20 gm Loratadine (Claritin) 10 mg PO DAILY [facility] Last Admin: 10/02/16 08:43 Dose: 10 mg Lorazepam (Ativan) 1 mg PO BID PRN PRN Reason: for anxiety Nystatin (Nystatin Oral Susp) 5 ml PO TID [facility] Last Admin: 10/02/16 12:20 Dose: Not Given Ondansetron HCl (Zofran Inj) 4 mg IVP Q4H PRN PRN Reason: Nausea/Vomiting Oxandrolone (Oxandrin) 5 mg PO BID [facility] Last Admin: 10/02/16 08:44 Dose: 5 mg Oxycodone HCl (Oxycontin Extended Release Tab) 20 mg PO Q8 [facility] Last Admin: 10/02/16 14:13 Dose: 20 mg Pantoprazole Sodium (Protonix Ec Tab) 40 mg PO DAILY [facility] Pioglitazone HCl (Actos) 30 mg PO 1100 [facility] Fluticasone/Salmeterol (Advair Diskus 500/50) 1 puff INH RBID [facility] Last Admin: 10/02/16 08:42 Dose: 1 puff Sitagliptin Phosphate (Januvia) 100 mg PO DAILY [facility] Last Admin: 10/02/16 08:43 Dose: 100 mg - Labs Labs: 09/30/16 08:53 09/30/16 07:05
[2016-10-02] MEDS: Insulin Detemir 100 Units/ml Inj SC SCH (22:47)
[2016-10-03] MEDS: oxyCODONE 20 mg ER Tab (oxyCONTIN) PO SCH ×3 (05:42→21:37)
[2016-10-03 08:23] LABS: BASO # 0.1 K/uL (0.0-0.2); BASO % 0.6 % (0.0-2.0); EOS # 0.1 K/uL (0.0-0.7); EOS % 1.4 % (0.0-4.0); HEMATOCRIT 27.1 % (35.0-51.0); LYMPH % 10.4 % (20.0-40.0); MEAN CELL VOLUME 88.7 fl (80.0-94.0); MEAN CORPUSCULAR HEMOGLOBIN 27.9 pg (27.0-31.0); MEAN CORPUSCULAR HGB CONC 31.5 g/dL (33.0-37.0); MEAN PLATELET VOLUME 6.5 fl (7.2-11.7); MONO # 0.5 K/uL (0.0-0.8); MONO % 5.4 % (0.0-10.0); NEUT % 82.2 % (50.0-75.0); RED CELL DISTRIBUTION WIDTH 15.5 % (11.5-14.5); WHITE BLOOD COUNT 9.8 K/uL (4.8-10.8)
[2016-10-03 08:23] LABS: ALB/GLOB RATIO 0.6 (1.0-2.1); BILIRUBIN,TOTAL 0.3 mg/dl (0.2-1.3); CALCIUM 8.7 mg/dL (8.4-10.2); POTASSIUM 4.5 MMOL/L (3.6-5.0); TOTAL PROTEIN 7.4 G/DL (6.3-8.2)
[2016-10-03] MEDS: Fluticasone-Salmeterol 500-50mcg Diskus INH SCH ×2 (08:35→20:32)
[2016-10-03] MEDS: Pantoprazole 40 mg EC Tab PO SCH (08:36)
[2016-10-03] MEDS: Lactobacillus Acidophilus 500 MU Cap PO SCH ×2 (08:36→16:55)
[2016-10-03] MEDS: GlipiZIDE 10 mg SR Tab PO SCH (08:37)
[2016-10-03] MEDS: Nystatin 100,000 Units/ml Oral Susp 5 ml UD PO SCH ×3 (08:37→16:57)
[2016-10-03] MEDS: Albuterol-Ipratrop 3 mg / 0.5 (3 ml) UD INH SCH ×4 (08:45→20:01)
[2016-10-03] MEDS: METFORMIN 500 MG PO SCH ×2 (12:04→16:55)
--- NOTE | 2016-10-03 12:30 | CP.PCM.PN ---
Subjective - Date & Time of Evaluation Date of Evaluation: 10/03/16 Time of Evaluation: 09:00 - Subjective Subjective: CXR noted await Pulm clearance Objective - Vital Signs/Intake and Output Vital Signs (last 24 hours): Temp Pulse Resp BP Pulse Ox 97.5 F L 74 20 144/62 97 10/03/16 07:34 10/03/16 07:34 10/03/16 07:34 10/03/16 07:34 10/03/16 07:34 - Medications Medications: Current Medications Acetaminophen (Tylenol 325mg Tab) 650 mg PO Q6 PRN PRN Reason: Fever >100.4 F Al Hydrox/Mg Hydrox/Simethicone (Maalox Plus 30 Ml) 30 ml PO Q6H PRN PRN Reason: Indigestion / Heartburn Last Admin: 10/02/16 04:00 Dose: 30 ml Albuterol/Ipratropium (Duoneb 3 Mg/0.5 Mg (3 Ml) Ud) 3 ml INH RQID [facility] Last Admin: 10/03/16 11:28 Dose: 3 ml Amiodarone HCl (Cordarone) 200 mg PO HS [facility] Last Admin: 10/02/16 22:36 Dose: 200 mg Artificial Tears (Artificial Tears) 2 drop OU Q6 PRN PRN Reason: Dry eyes Last Admin: 10/01/16 14:20 Dose: 2 drop Clopidogrel Bisulfate (Plavix) 75 mg PO DAILY [facility] Last Admin: 10/03/16 08:37 Dose: 75 mg Clotrimazole (Lotrimin 1% Cream) 1 applic TOP BID [facility] Last Admin: 10/03/16 08:35 Dose: 1 applic Docusate Sodium (Colace) 100 mg PO TID [facility] Last Admin: 10/03/16 12:04 Dose: 100 mg Epoetin Mp (Procrit) 10,000 unit SC MWF [facility] Last Admin: 10/02/16 08:45 Dose: 10,000 unit Escitalopram Oxalate (Lexapro) 10 mg PO HS [facility] Last Admin: 10/02/16 22:35 Dose: 10 mg Ferrous Sulfate (Feosol) 325 mg PO BID [facility] Last Admin: 10/03/16 08:36 Dose: 325 mg Glipizide (Glucotrol Xl) 10 mg PO BRK [facility] Last Admin: 10/03/16 08:37 Dose: 10 mg Glipizide (Glucotrol Xl) 5 mg PO ACD [facility] Last Admin: 10/02/16 16:24 Dose: 5 mg Home Med (Metformin Xr) 1,000 mg PO 1200,1700 [facility] Last Admin: 10/03/16 12:04 Dose: 1,000 mg Hydromorphone HCl (Dilaudid) 2 mg PO Q4 PRN PRN Reason: pain (4-8) Hydromorphone HCl (Dilaudid) 4 mg PO Q4 PRN PRN Reason: pain (9-10) Ceftazidime/Avibactam 1.25 gm/ (Sodium Chloride) 100 mls @ 100 mls/hr IVPB Q8H [facility] Last Admin: 10/03/16 05:43 Dose: 100 mls/hr Insulin Detemir (Levemir) 5 units SC HS [facility] Last Admin: 10/02/16 22:47 Dose: 5 units Lactobacillus Acidophilus (Bacid Acidophilus) 1 cap PO BID [facility] Last Admin: 10/03/16 08:36 Dose: 1 cap Lactulose (Enulose) 20 gm PO DAILY PRN PRN Reason: Constipation Last Admin: 09/22/16 17:06 Dose: 20 gm Loratadine (Claritin) 10 mg PO DAILY [facility] Last Admin: 10/03/16 08:37 Dose: 10 mg Lorazepam (Ativan) 1 mg PO BID PRN PRN Reason: for anxiety Nystatin (Nystatin Oral Susp) 5 ml PO TID [facility] Last Admin: 10/03/16 12:04 Dose: Not Given Ondansetron HCl (Zofran Inj) 4 mg IVP Q4H PRN PRN Reason: Nausea/Vomiting Oxandrolone (Oxandrin) 5 mg PO BID [facility] Last Admin: 10/03/16 08:36 Dose: 5 mg Oxycodone HCl (Oxycontin Extended Release Tab) 20 mg PO Q8 [facility] Pantoprazole Sodium (Protonix Ec Tab) 40 mg PO DAILY [facility] Last Admin: 10/03/16 08:36 Dose: 40 mg Pioglitazone HCl (Actos) 30 mg PO 1100 [facility] Last Admin: 10/03/16 12:04 Dose: 30 mg Fluticasone/Salmeterol (Advair Diskus 500/50) 1 puff INH RBID [facility] Last Admin: 10/03/16 08:35 Dose: 1 puff Sitagliptin Phosphate (Januvia) 100 mg PO DAILY [facility] Last Admin: 10/03/16 08:37 Dose: 100 mg - Labs Labs: 10/03/16 04:00 10/03/16 07:45 - Constitutional Appears: Non-toxic, Chronically Ill - Head Exam Head Exam: NORMOCEPHALIC - Eye Exam Eye Exam: PERRL. absent: Scleral icterus - ENT Exam ENT Exam: Mucous Membranes Dry - Neck Exam Neck Exam: absent: Lymphadenopathy - Respiratory Exam Respiratory Exam: Decreased Breath Sounds, Clear to Ausculation Bilateral - Cardiovascular Exam Cardiovascular Exam: REGULAR RHYTHM, +S1, +S2 - GI/Abdominal Exam GI & Abdominal Exam: Distended, Soft Assessment and Plan (1) Abdominal pain Status: Acute (2) Osteomyelitis of foot, acute Status: Acute (3) Uncontrolled diabetes mellitus Status: Acute (4) Pneumonia due to aerobic bacteria Status: Acute
--- NOTE | 2016-10-03 15:48 | RAD ---
PROCEDURE: CHEST RADIOGRAPH, 1 VIEW. Procedure completed 07:25. HISTORY: PNEUMONIA COMPARISON: 09/28/2016. FINDINGS: LUNGS: Stable lower lobe infiltrates. PLEURA: No pneumothorax or pleural fluid seen. CARDIOVASCULAR: Cardiomegaly. No evidence of acute, significant cardiovascular disease. Venous access catheter in stable, satisfactory position. OSSEOUS STRUCTURES: No significant abnormalities. VISUALIZED UPPER ABDOMEN: Normal. OTHER FINDINGS: None. IMPRESSION: Bilateral lower lobe infiltrates left greater than right. No significant interval change compared to the prior examination(s).
[2016-10-03] MEDS: GlipiZIDE 5 mg SR Tab PO SCH (16:56)
[2016-10-03] MEDS: Insulin Detemir 100 Units/ml Inj SC SCH (21:39)
[2016-10-04] MEDS: oxyCODONE 20 mg ER Tab (oxyCONTIN) PO SCH ×3 (06:06→21:00)
[2016-10-04] MEDS: Albuterol-Ipratrop 3 mg / 0.5 (3 ml) UD INH SCH ×4 (07:40→19:54)
[2016-10-04] MEDS: Fluticasone-Salmeterol 500-50mcg Diskus INH SCH ×2 (08:34→20:04)
[2016-10-04] MEDS: Lactobacillus Acidophilus 500 MU Cap PO SCH ×2 (08:35→17:09)
[2016-10-04] MEDS: Pantoprazole 40 mg EC Tab PO SCH (08:37)
[2016-10-04] MEDS: GlipiZIDE 10 mg SR Tab PO SCH (08:40)
[2016-10-04] MEDS: Nystatin 100,000 Units/ml Oral Susp 5 ml UD PO SCH ×3 (08:40→17:10)
--- NOTE | 2016-10-04 11:39 | CP.PCM.PN ---
Subjective - Date & Time of Evaluation Date of Evaluation: 10/04/16 Time of Evaluation: 11:39 - Subjective Subjective: NO CHEST PAINS/SOB COUGH IMPROVED Objective - Vital Signs/Intake and Output Vital Signs (last 24 hours): Temp Pulse Resp BP Pulse Ox 96.8 F L 82 20 140/90 98 10/04/16 07:42 10/04/16 07:42 10/04/16 07:42 10/04/16 07:42 10/04/16 07:42 - Medications Medications: Current Medications Acetaminophen (Tylenol 325mg Tab) 650 mg PO Q6 PRN PRN Reason: Fever >100.4 F Al Hydrox/Mg Hydrox/Simethicone (Maalox Plus 30 Ml) 30 ml PO Q6H PRN PRN Reason: Indigestion / Heartburn Last Admin: 10/02/16 04:00 Dose: 30 ml Albuterol/Ipratropium (Duoneb 3 Mg/0.5 Mg (3 Ml) Ud) 3 ml INH RQID [facility] Last Admin: 10/04/16 07:40 Dose: 3 ml Amiodarone HCl (Cordarone) 200 mg PO HS [facility] Last Admin: 10/03/16 21:48 Dose: 200 mg Artificial Tears (Artificial Tears) 2 drop OU Q6 PRN PRN Reason: Dry eyes Last Admin: 10/01/16 14:20 Dose: 2 drop Clopidogrel Bisulfate (Plavix) 75 mg PO DAILY [facility] Last Admin: 10/04/16 08:37 Dose: 75 mg Clotrimazole (Lotrimin 1% Cream) 1 applic TOP BID [facility] Last Admin: 10/04/16 08:40 Dose: 1 applic Docusate Sodium (Colace) 100 mg PO TID [facility] Last Admin: 10/04/16 08:38 Dose: Not Given Epoetin Mp (Procrit) 10,000 unit SC MWF [facility] Last Admin: 10/02/16 08:45 Dose: 10,000 unit Escitalopram Oxalate (Lexapro) 10 mg PO HS [facility] Last Admin: 10/03/16 21:37 Dose: 10 mg Ferrous Sulfate (Feosol) 325 mg PO BID [facility] Last Admin: 10/04/16 08:35 Dose: 325 mg Glipizide (Glucotrol Xl) 10 mg PO BRK [facility] Last Admin: 10/04/16 08:40 Dose: 10 mg Glipizide (Glucotrol Xl) 5 mg PO ACD [facility] Last Admin: 10/03/16 16:56 Dose: 5 mg Home Med (Metformin Xr) 1,000 mg PO 1200,1700 [facility] Last Admin: 10/03/16 16:55 Dose: 1,000 mg Hydromorphone HCl (Dilaudid) 2 mg PO Q4 PRN PRN Reason: pain (4-8) Last Admin: 10/04/16 03:51 Dose: 2 mg Hydromorphone HCl (Dilaudid) 4 mg PO Q4 PRN PRN Reason: pain (9-10) Ceftazidime/Avibactam 1.25 gm/ (Sodium Chloride) 100 mls @ 100 mls/hr IVPB Q8H [facility] Last Admin: 10/04/16 04:31 Dose: 100 mls/hr Insulin Detemir (Levemir) 5 units SC HS [facility] Last Admin: 10/03/16 21:39 Dose: 5 units Lactobacillus Acidophilus (Bacid Acidophilus) 1 cap PO BID [facility] Last Admin: 10/04/16 08:35 Dose: 1 cap Lactulose (Enulose) 20 gm PO DAILY PRN PRN Reason: Constipation Last Admin: 09/22/16 17:06 Dose: 20 gm Loratadine (Claritin) 10 mg PO DAILY [facility] Last Admin: 10/04/16 08:38 Dose: 10 mg Lorazepam (Ativan) 1 mg PO BID PRN PRN Reason: for anxiety Nystatin (Nystatin Oral Susp) 5 ml PO TID [facility] Last Admin: 10/04/16 08:40 Dose: 5 ml Ondansetron HCl (Zofran Inj) 4 mg IVP Q4H PRN PRN Reason: Nausea/Vomiting Oxandrolone (Oxandrin) 5 mg PO BID [facility] Last Admin: 10/04/16 08:45 Dose: 5 mg Oxycodone HCl (Oxycontin Extended Release Tab) 20 mg PO Q8 [facility] Last Admin: 10/04/16 06:06 Dose: 20 mg Pantoprazole Sodium (Protonix Ec Tab) 40 mg PO DAILY [facility] Last Admin: 10/04/16 08:37 Dose: 40 mg Pioglitazone HCl (Actos) 30 mg PO 1100 [facility] Last Admin: 10/03/16 12:04 Dose: 30 mg Fluticasone/Salmeterol (Advair Diskus 500/50) 1 puff INH RBID [facility] Last Admin: 10/04/16 08:34 Dose: 1 puff Sitagliptin Phosphate (Januvia) 100 mg PO DAILY [facility] Last Admin: 10/04/16 08:39 Dose: 100 mg - Labs Labs: 10/03/16 04:00 10/03/16 07:45 - Constitutional Appears: Well - Head Exam Head Exam: ATRAUMATIC, NORMAL INSPECTION, NORMOCEPHALIC - Eye Exam Eye Exam: EOMI, Normal appearance, PERRL Pupil Exam: NORMAL ACCOMODATION, PERRL - ENT Exam ENT Exam: Mucous Membranes Moist, Normal Exam - Neck Exam Neck Exam: Full ROM, Normal Inspection. absent: Lymphadenopathy - Respiratory Exam Respiratory Exam: Prolonged Expiratory Phase, NORMAL BREATHING PATTERN - Cardiovascular Exam Cardiovascular Exam: REGULAR RHYTHM, +S1, +S2. absent: Murmur - GI/Abdominal Exam GI & Abdominal Exam: Soft, Normal Bowel Sounds. absent: Tenderness - Rectal Exam Rectal Exam: NORMAL INSPECTION - Extremities Exam Extremities Exam: Full ROM, Normal Capillary Refill. absent: Joint Swelling, Pedal Edema - Back Exam Back Exam: NORMAL INSPECTION - Neurological Exam Neurological Exam: Alert, Awake, CN II-XII Intact, Normal Gait, Oriented x3 - Psychiatric Exam Psychiatric exam: Normal Affect, Normal Mood - Skin Skin Exam: Dry, Intact, Normal Color, Warm Assessment and Plan - Assessment and Plan (Free Text) Assessment: PNEUMONIA CLINICALLY IMPROVED CXR FINDINGS MAY LAG BEHIND DESPITE CLINICAL IMPROVEMENT PT IS CLEARED FOR DISCHARGE TO SUBACUTE CARE SERIAL CXRS ADVICED UNTIL CXR FINDINGS STABILIZE
--- NOTE | 2016-10-04 11:50 | CP.PCM.PN ---
Subjective - Date & Time of Evaluation Date of Evaluation: 09/28/16 Time of Evaluation: 10:10 - Subjective Subjective: patient remains stable responding very well to po meds for DM BUn and creatinine and GFR has improved. has no fever Has some nausea Has slight loose stools. Objective - Vital Signs/Intake and Output Vital Signs (last 24 hours): Temp Pulse Resp BP Pulse Ox 96.8 F L 82 20 140/90 98 10/04/16 07:42 10/04/16 07:42 10/04/16 07:42 10/04/16 07:42 10/04/16 07:42 - Medications Medications: Current Medications Acetaminophen (Tylenol 325mg Tab) 650 mg PO Q6 PRN PRN Reason: Fever >100.4 F Al Hydrox/Mg Hydrox/Simethicone (Maalox Plus 30 Ml) 30 ml PO Q6H PRN PRN Reason: Indigestion / Heartburn Last Admin: 10/02/16 04:00 Dose: 30 ml Albuterol/Ipratropium (Duoneb 3 Mg/0.5 Mg (3 Ml) Ud) 3 ml INH RQID [facility] Last Admin: 10/04/16 11:45 Dose: 3 ml Amiodarone HCl (Cordarone) 200 mg PO [facility] Last Admin: 10/03/16 21:48 Dose: 200 mg Artificial Tears (Artificial Tears) 2 drop OU Q6 PRN PRN Reason: Dry eyes Last Admin: 10/01/16 14:20 Dose: 2 drop Clopidogrel Bisulfate (Plavix) 75 mg PO DAILY [facility] Last Admin: 10/04/16 08:37 Dose: 75 mg Clotrimazole (Lotrimin 1% Cream) 1 applic TOP BID [facility] Last Admin: 10/04/16 08:40 Dose: 1 applic Docusate Sodium (Colace) 100 mg PO TID [facility] Last Admin: 10/04/16 08:38 Dose: Not Given Epoetin Mp (Procrit) 10,000 unit SC MWF [facility] Last Admin: 10/02/16 08:45 Dose: 10,000 unit Escitalopram Oxalate (Lexapro) 10 mg PO HS [facility] Last Admin: 10/03/16 21:37 Dose: 10 mg Ferrous Sulfate (Feosol) 325 mg PO BID [facility] Last Admin: 10/04/16 08:35 Dose: 325 mg Glipizide (Glucotrol Xl) 10 mg PO BRK [facility] Last Admin: 10/04/16 08:40 Dose: 10 mg Glipizide (Glucotrol Xl) 5 mg PO ACD [facility] Last Admin: 10/03/16 16:56 Dose: 5 mg Home Med (Metformin Xr) 1,000 mg PO 1200,1700 [facility] Last Admin: 10/03/16 16:55 Dose: 1,000 mg Hydromorphone HCl (Dilaudid) 2 mg PO Q4 PRN PRN Reason: pain (4-8) Last Admin: 10/04/16 03:51 Dose: 2 mg Hydromorphone HCl (Dilaudid) 4 mg PO Q4 PRN PRN Reason: pain (9-10) Ceftazidime/Avibactam 1.25 gm/ (Sodium Chloride) 100 mls @ 100 mls/hr IVPB Q8H [facility] Last Admin: 10/04/16 04:31 Dose: 100 mls/hr Insulin Detemir (Levemir) 5 units SC HS [facility] Last Admin: 10/03/16 21:39 Dose: 5 units Lactobacillus Acidophilus (Bacid Acidophilus) 1 cap PO BID [facility] Last Admin: 10/04/16 08:35 Dose: 1 cap Lactulose (Enulose) 20 gm PO DAILY PRN PRN Reason: Constipation Last Admin: 09/22/16 17:06 Dose: 20 gm Loratadine (Claritin) 10 mg PO DAILY [facility] Last Admin: 10/04/16 08:38 Dose: 10 mg Lorazepam (Ativan) 1 mg PO BID PRN PRN Reason: for anxiety Nystatin (Nystatin Oral Susp) 5 ml PO TID [facility] Last Admin: 10/04/16 08:40 Dose: 5 ml Ondansetron HCl (Zofran Inj) 4 mg IVP Q4H PRN PRN Reason: Nausea/Vomiting Oxandrolone (Oxandrin) 5 mg PO BID [facility] Last Admin: 10/04/16 08:45 Dose: 5 mg Oxycodone HCl (Oxycontin Extended Release Tab) 20 mg PO Q8 [facility] Last Admin: 10/04/16 06:06 Dose: 20 mg Pantoprazole Sodium (Protonix Ec Tab) 40 mg PO DAILY [facility] Last Admin: 10/04/16 08:37 Dose: 40 mg Pioglitazone HCl (Actos) 30 mg PO 1100 [facility] Last Admin: 10/03/16 12:04 Dose: 30 mg Fluticasone/Salmeterol (Advair Diskus 500/50) 1 puff INH RBID [facility] Last Admin: 10/04/16 08:34 Dose: 1 puff Sitagliptin Phosphate (Januvia) 100 mg PO DAILY [facility] Last Admin: 10/04/16 08:39 Dose: 100 mg - Labs Labs: 10/03/16 04:00 10/03/16 07:45 - Head Exam Head Exam: NORMAL INSPECTION - Eye Exam Eye Exam: Normal appearance - Respiratory Exam Respiratory Exam: Clear to Ausculation Bilateral - Cardiovascular Exam Cardiovascular Exam: REGULAR RHYTHM - GI/Abdominal Exam GI & Abdominal Exam: Normal Bowel Sounds - Neurological Exam Neurological Exam: Awake, Oriented x3 Assessment and Plan (1) CKD (chronic kidney disease), stage II Status: Chronic (2) Diabetes mellitus Status: Chronic (3) Hypertension Status: Chronic (4) PVD (peripheral vascular disease) with claudication Status: Chronic (5) Abnormality of gait Status: Acute (6) Paroxysmal atrial fibrillation Status: Acute (7) 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
--- NOTE | 2016-10-04 11:52 | CP.PCM.PN ---
Subjective - Date & Time of Evaluation Date of Evaluation: 09/29/16 Time of Evaluation: 10:30 - Subjective Subjective: patient remains stable tolerating all po meds has no chest pain or SOB. afebrile. Objective - Vital Signs/Intake and Output Vital Signs (last 24 hours): Temp Pulse Resp BP Pulse Ox 96.8 F L 82 20 140/90 98 10/04/16 07:42 10/04/16 07:42 10/04/16 07:42 10/04/16 07:42 10/04/16 07:42 - Medications Medications: Current Medications Acetaminophen (Tylenol 325mg Tab) 650 mg PO Q6 PRN PRN Reason: Fever >100.4 F Al Hydrox/Mg Hydrox/Simethicone (Maalox Plus 30 Ml) 30 ml PO Q6H PRN PRN Reason: Indigestion / Heartburn Last Admin: 10/02/16 04:00 Dose: 30 ml Albuterol/Ipratropium (Duoneb 3 Mg/0.5 Mg (3 Ml) Ud) 3 ml INH RQID [facility] Last Admin: 10/04/16 11:45 Dose: 3 ml Amiodarone HCl (Cordarone) 200 mg PO HS [facility] Last Admin: 10/03/16 21:48 Dose: 200 mg Artificial Tears (Artificial Tears) 2 drop OU Q6 PRN PRN Reason: Dry eyes Last Admin: 10/01/16 14:20 Dose: 2 drop Clopidogrel Bisulfate (Plavix) 75 mg PO DAILY [facility] Last Admin: 10/04/16 08:37 Dose: 75 mg Clotrimazole (Lotrimin 1% Cream) 1 applic TOP BID [facility] Last Admin: 10/04/16 08:40 Dose: 1 applic Docusate Sodium (Colace) 100 mg PO TID [facility] Last Admin: 10/04/16 08:38 Dose: Not Given Epoetin Mp (Procrit) 10,000 unit SC MWF [facility] Last Admin: 10/02/16 08:45 Dose: 10,000 unit Escitalopram Oxalate (Lexapro) 10 mg PO HS [facility] Last Admin: 10/03/16 21:37 Dose: 10 mg Ferrous Sulfate (Feosol) 325 mg PO BID [facility] Last Admin: 10/04/16 08:35 Dose: 325 mg Glipizide (Glucotrol Xl) 10 mg PO BRK [facility] Last Admin: 10/04/16 08:40 Dose: 10 mg Glipizide (Glucotrol Xl) 5 mg PO ACD [facility] Last Admin: 10/03/16 16:56 Dose: 5 mg Home Med (Metformin Xr) 1,000 mg PO 1200,1700 [facility] Last Admin: 10/03/16 16:55 Dose: 1,000 mg Hydromorphone HCl (Dilaudid) 2 mg PO Q4 PRN PRN Reason: pain (4-8) Last Admin: 10/04/16 03:51 Dose: 2 mg Hydromorphone HCl (Dilaudid) 4 mg PO Q4 PRN PRN Reason: pain (9-10) Ceftazidime/Avibactam 1.25 gm/ (Sodium Chloride) 100 mls @ 100 mls/hr IVPB Q8H [facility] Last Admin: 10/04/16 04:31 Dose: 100 mls/hr Insulin Detemir (Levemir) 5 units SC HS [facility] Last Admin: 10/03/16 21:39 Dose: 5 units Lactobacillus Acidophilus (Bacid Acidophilus) 1 cap PO BID [facility] Last Admin: 10/04/16 08:35 Dose: 1 cap Lactulose (Enulose) 20 gm PO DAILY PRN PRN Reason: Constipation Last Admin: 09/22/16 17:06 Dose: 20 gm Loratadine (Claritin) 10 mg PO DAILY [facility] Last Admin: 10/04/16 08:38 Dose: 10 mg Lorazepam (Ativan) 1 mg PO BID PRN PRN Reason: for anxiety Nystatin (Nystatin Oral Susp) 5 ml PO TID [facility] Last Admin: 10/04/16 08:40 Dose: 5 ml Ondansetron HCl (Zofran Inj) 4 mg IVP Q4H PRN PRN Reason: Nausea/Vomiting Oxandrolone (Oxandrin) 5 mg PO BID [facility] Last Admin: 10/04/16 08:45 Dose: 5 mg Oxycodone HCl (Oxycontin Extended Release Tab) 20 mg PO Q8 [facility] Last Admin: 10/04/16 06:06 Dose: 20 mg Pantoprazole Sodium (Protonix Ec Tab) 40 mg PO DAILY [facility] Last Admin: 10/04/16 08:37 Dose: 40 mg Pioglitazone HCl (Actos) 30 mg PO 1100 [facility] Last Admin: 10/03/16 12:04 Dose: 30 mg Fluticasone/Salmeterol (Advair Diskus 500/50) 1 puff INH RBID [facility] Last Admin: 10/04/16 08:34 Dose: 1 puff Sitagliptin Phosphate (Januvia) 100 mg PO DAILY [facility] Last Admin: 10/04/16 08:39 Dose: 100 mg - Labs Labs: 10/03/16 04:00 10/03/16 07:45 - Head Exam Head Exam: NORMAL INSPECTION - Eye Exam Eye Exam: Normal appearance - ENT Exam ENT Exam: Mucous Membranes Moist - Respiratory Exam Respiratory Exam: Clear to Ausculation Bilateral - Cardiovascular Exam Cardiovascular Exam: REGULAR RHYTHM - GI/Abdominal Exam GI & Abdominal Exam: Normal Bowel Sounds - Neurological Exam Neurological Exam: CN II-XII Intact, Normal Gait Assessment and Plan (1) CKD (chronic kidney disease), stage II Status: Chronic (2) Diabetes mellitus Status: Chronic (3) Hypertension Status: Chronic (4) PVD (peripheral vascular disease) with claudication Status: Chronic (5) Abnormality of gait Status: Acute (6) Paroxysmal atrial fibrillation Status: Acute (7) 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
--- NOTE | 2016-10-04 11:56 | CP.PCM.PN ---
Subjective - Date & Time of Evaluation Date of Evaluation: 09/30/16 Time of Evaluation: 10:00 - Subjective Subjective: Patient remain stable BUN 15 crea 1.4 GFR 52 has no fever, Has no chest pain or SOB. Objective - Vital Signs/Intake and Output Vital Signs (last 24 hours): Temp Pulse Resp BP Pulse Ox 96.8 F L 82 20 140/90 98 10/04/16 07:42 10/04/16 07:42 10/04/16 07:42 10/04/16 07:42 10/04/16 07:42 - Medications Medications: Current Medications Acetaminophen (Tylenol 325mg Tab) 650 mg PO Q6 PRN PRN Reason: Fever >100.4 F Al Hydrox/Mg Hydrox/Simethicone (Maalox Plus 30 Ml) 30 ml PO Q6H PRN PRN Reason: Indigestion / Heartburn Last Admin: 10/02/16 04:00 Dose: 30 ml Albuterol/Ipratropium (Duoneb 3 Mg/0.5 Mg (3 Ml) Ud) 3 ml INH RQID [facility] Last Admin: 10/04/16 11:45 Dose: 3 ml Amiodarone HCl (Cordarone) 200 mg PO [facility] Last Admin: 10/03/16 21:48 Dose: 200 mg Artificial Tears (Artificial Tears) 2 drop OU Q6 PRN PRN Reason: Dry eyes Last Admin: 10/01/16 14:20 Dose: 2 drop Clopidogrel Bisulfate (Plavix) 75 mg PO DAILY [facility] Last Admin: 10/04/16 08:37 Dose: 75 mg Clotrimazole (Lotrimin 1% Cream) 1 applic TOP BID [facility] Last Admin: 10/04/16 08:40 Dose: 1 applic Docusate Sodium (Colace) 100 mg PO TID [facility] Last Admin: 10/04/16 08:38 Dose: Not Given Epoetin Mp (Procrit) 10,000 unit SC MWF [facility] Last Admin: 10/02/16 08:45 Dose: 10,000 unit Escitalopram Oxalate (Lexapro) 10 mg PO HS [facility] Last Admin: 10/03/16 21:37 Dose: 10 mg Ferrous Sulfate (Feosol) 325 mg PO BID [facility] Last Admin: 10/04/16 08:35 Dose: 325 mg Glipizide (Glucotrol Xl) 10 mg PO BRK [facility] Last Admin: 10/04/16 08:40 Dose: 10 mg Glipizide (Glucotrol Xl) 5 mg PO ACD [facility] Last Admin: 10/03/16 16:56 Dose: 5 mg Home Med (Metformin Xr) 1,000 mg PO 1200,1700 [facility] Last Admin: 10/03/16 16:55 Dose: 1,000 mg Hydromorphone HCl (Dilaudid) 2 mg PO Q4 PRN PRN Reason: pain (4-8) Last Admin: 10/04/16 03:51 Dose: 2 mg Hydromorphone HCl (Dilaudid) 4 mg PO Q4 PRN PRN Reason: pain (9-10) Ceftazidime/Avibactam 1.25 gm/ (Sodium Chloride) 100 mls @ 100 mls/hr IVPB Q8H [facility] Last Admin: 10/04/16 04:31 Dose: 100 mls/hr Insulin Detemir (Levemir) 5 units SC HS [facility] Last Admin: 10/03/16 21:39 Dose: 5 units Lactobacillus Acidophilus (Bacid Acidophilus) 1 cap PO BID [facility] Last Admin: 10/04/16 08:35 Dose: 1 cap Lactulose (Enulose) 20 gm PO DAILY PRN PRN Reason: Constipation Last Admin: 09/22/16 17:06 Dose: 20 gm Loratadine (Claritin) 10 mg PO DAILY [facility] Last Admin: 10/04/16 08:38 Dose: 10 mg Lorazepam (Ativan) 1 mg PO BID PRN PRN Reason: for anxiety Nystatin (Nystatin Oral Susp) 5 ml PO TID [facility] Last Admin: 10/04/16 08:40 Dose: 5 ml Ondansetron HCl (Zofran Inj) 4 mg IVP Q4H PRN PRN Reason: Nausea/Vomiting Oxandrolone (Oxandrin) 5 mg PO BID [facility] Last Admin: 10/04/16 08:45 Dose: 5 mg Oxycodone HCl (Oxycontin Extended Release Tab) 20 mg PO Q8 [facility] Last Admin: 10/04/16 06:06 Dose: 20 mg Pantoprazole Sodium (Protonix Ec Tab) 40 mg PO DAILY [facility] Last Admin: 10/04/16 08:37 Dose: 40 mg Pioglitazone HCl (Actos) 30 mg PO 1100 [facility] Last Admin: 10/03/16 12:04 Dose: 30 mg Fluticasone/Salmeterol (Advair Diskus 500/50) 1 puff INH RBID [facility] Last Admin: 10/04/16 08:34 Dose: 1 puff Sitagliptin Phosphate (Januvia) 100 mg PO DAILY [facility] Last Admin: 10/04/16 08:39 Dose: 100 mg - Labs Labs: 10/03/16 04:00 10/03/16 07:45 - Head Exam Head Exam: NORMAL INSPECTION - Eye Exam Eye Exam: Normal appearance - ENT Exam ENT Exam: Mucous Membranes Moist - Respiratory Exam Respiratory Exam: Clear to Ausculation Bilateral - Cardiovascular Exam Cardiovascular Exam: REGULAR RHYTHM - GI/Abdominal Exam GI & Abdominal Exam: Normal Bowel Sounds - Psychiatric Exam Psychiatric exam: Depressed Assessment and Plan (1) CKD (chronic kidney disease), stage II Status: Chronic (2) Diabetes mellitus Status: Chronic (3) Hypertension Status: Chronic (4) PVD (peripheral vascular disease) with claudication Status: Chronic (5) Abnormality of gait Status: Acute (6) Paroxysmal atrial fibrillation Status: Acute (7) 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
--- NOTE | 2016-10-04 11:58 | CP.PCM.PN ---
Subjective - Date & Time of Evaluation Date of Evaluation: 10/01/16 Time of Evaluation: 10:15 - Subjective Subjective: patient is doing well Has no chest pain or SOB Afebrile Objective - Vital Signs/Intake and Output Vital Signs (last 24 hours): Temp Pulse Resp BP Pulse Ox 96.8 F L 82 20 140/90 98 10/04/16 07:42 10/04/16 07:42 10/04/16 07:42 10/04/16 07:42 10/04/16 07:42 - Medications Medications: Current Medications Acetaminophen (Tylenol 325mg Tab) 650 mg PO Q6 PRN PRN Reason: Fever >100.4 F Al Hydrox/Mg Hydrox/Simethicone (Maalox Plus 30 Ml) 30 ml PO Q6H PRN PRN Reason: Indigestion / Heartburn Last Admin: 10/02/16 04:00 Dose: 30 ml Albuterol/Ipratropium (Duoneb 3 Mg/0.5 Mg (3 Ml) Ud) 3 ml INH RQID [facility] Last Admin: 10/04/16 11:45 Dose: 3 ml Amiodarone HCl (Cordarone) 200 mg PO HS [facility] Last Admin: 10/03/16 21:48 Dose: 200 mg Artificial Tears (Artificial Tears) 2 drop OU Q6 PRN PRN Reason: Dry eyes Last Admin: 10/01/16 14:20 Dose: 2 drop Clopidogrel Bisulfate (Plavix) 75 mg PO DAILY [facility] Last Admin: 10/04/16 08:37 Dose: 75 mg Clotrimazole (Lotrimin 1% Cream) 1 applic TOP BID [facility] Last Admin: 10/04/16 08:40 Dose: 1 applic Docusate Sodium (Colace) 100 mg PO TID [facility] Last Admin: 10/04/16 08:38 Dose: Not Given Epoetin Mp (Procrit) 10,000 unit SC MWF [facility] Last Admin: 10/02/16 08:45 Dose: 10,000 unit Escitalopram Oxalate (Lexapro) 10 mg PO HS [facility] Last Admin: 10/03/16 21:37 Dose: 10 mg Ferrous Sulfate (Feosol) 325 mg PO BID [facility] Last Admin: 10/04/16 08:35 Dose: 325 mg Glipizide (Glucotrol Xl) 10 mg PO BRK [facility] Last Admin: 10/04/16 08:40 Dose: 10 mg Glipizide (Glucotrol Xl) 5 mg PO ACD [facility] Last Admin: 10/03/16 16:56 Dose: 5 mg Home Med (Metformin Xr) 1,000 mg PO 1200,1700 [facility] Last Admin: 10/03/16 16:55 Dose: 1,000 mg Hydromorphone HCl (Dilaudid) 2 mg PO Q4 PRN PRN Reason: pain (4-8) Last Admin: 10/04/16 03:51 Dose: 2 mg Hydromorphone HCl (Dilaudid) 4 mg PO Q4 PRN PRN Reason: pain (9-10) Ceftazidime/Avibactam 1.25 gm/ (Sodium Chloride) 100 mls @ 100 mls/hr IVPB Q8H [facility] Last Admin: 10/04/16 04:31 Dose: 100 mls/hr Lactobacillus Acidophilus (Bacid Acidophilus) 1 cap PO BID [facility] Last Admin: 10/04/16 08:35 Dose: 1 cap Lactulose (Enulose) 20 gm PO DAILY PRN PRN Reason: Constipation Last Admin: 09/22/16 17:06 Dose: 20 gm Loratadine (Claritin) 10 mg PO DAILY [facility] Last Admin: 10/04/16 08:38 Dose: 10 mg Lorazepam (Ativan) 1 mg PO BID PRN PRN Reason: for anxiety Nystatin (Nystatin Oral Susp) 5 ml PO TID [facility] Last Admin: 10/04/16 08:40 Dose: 5 ml Ondansetron HCl (Zofran Inj) 4 mg IVP Q4H PRN PRN Reason: Nausea/Vomiting Oxandrolone (Oxandrin) 5 mg PO BID [facility] Last Admin: 10/04/16 08:45 Dose: 5 mg Oxycodone HCl (Oxycontin Extended Release Tab) 20 mg PO Q8 [facility] Last Admin: 10/04/16 06:06 Dose: 20 mg Pantoprazole Sodium (Protonix Ec Tab) 40 mg PO DAILY [facility] Last Admin: 10/04/16 08:37 Dose: 40 mg Pioglitazone HCl (Actos) 30 mg PO 1100 [facility] Last Admin: 10/03/16 12:04 Dose: 30 mg Fluticasone/Salmeterol (Advair Diskus 500/50) 1 puff INH RBID [facility] Last Admin: 10/04/16 08:34 Dose: 1 puff Sitagliptin Phosphate (Januvia) 100 mg PO DAILY [facility] Last Admin: 10/04/16 08:39 Dose: 100 mg - Labs Labs: 10/03/16 04:00 10/03/16 07:45 - Head Exam Head Exam: NORMAL INSPECTION - Eye Exam Eye Exam: Normal appearance - ENT Exam ENT Exam: Mucous Membranes Moist - Respiratory Exam Respiratory Exam: Clear to Ausculation Bilateral - Cardiovascular Exam Cardiovascular Exam: REGULAR RHYTHM - Neurological Exam Neurological Exam: CN II-XII Intact, Oriented x3 Assessment and Plan (1) CKD (chronic kidney disease), stage II Status: Chronic (2) Diabetes mellitus Status: Chronic (3) Hypertension Status: Chronic (4) PVD (peripheral vascular disease) with claudication Status: Chronic (5) Abnormality of gait Status: Acute (6) Paroxysmal atrial fibrillation Status: Acute (7) 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
--- NOTE | 2016-10-04 12:02 | CP.PCM.PN ---
Subjective - Date & Time of Evaluation Date of Evaluation: 10/03/16 Time of Evaluation: 09:00 - Subjective Subjective: Patient remains stable Has no chest pain or SOB Has no fever.BUN Normal Cr 1.6 GFR 44 Objective - Vital Signs/Intake and Output Vital Signs (last 24 hours): Temp Pulse Resp BP Pulse Ox 96.8 F L 82 20 140/90 98 10/04/16 07:42 10/04/16 07:42 10/04/16 07:42 10/04/16 07:42 10/04/16 07:42 - Medications Medications: Current Medications Acetaminophen (Tylenol 325mg Tab) 650 mg PO Q6 PRN PRN Reason: Fever >100.4 F Al Hydrox/Mg Hydrox/Simethicone (Maalox Plus 30 Ml) 30 ml PO Q6H PRN PRN Reason: Indigestion / Heartburn Last Admin: 10/02/16 04:00 Dose: 30 ml Albuterol/Ipratropium (Duoneb 3 Mg/0.5 Mg (3 Ml) Ud) 3 ml INH RQID [facility] Last Admin: 10/04/16 11:45 Dose: 3 ml Amiodarone HCl (Cordarone) 200 mg PO HS [facility] Last Admin: 10/03/16 21:48 Dose: 200 mg Artificial Tears (Artificial Tears) 2 drop OU Q6 PRN PRN Reason: Dry eyes Last Admin: 10/01/16 14:20 Dose: 2 drop Clopidogrel Bisulfate (Plavix) 75 mg PO DAILY [facility] Last Admin: 10/04/16 08:37 Dose: 75 mg Clotrimazole (Lotrimin 1% Cream) 1 applic TOP BID [facility] Last Admin: 10/04/16 08:40 Dose: 1 applic Docusate Sodium (Colace) 100 mg PO TID [facility] Last Admin: 10/04/16 08:38 Dose: Not Given Epoetin Mp (Procrit) 10,000 unit SC MWF [facility] Last Admin: 10/02/16 08:45 Dose: 10,000 unit Escitalopram Oxalate (Lexapro) 10 mg PO HS [facility] Last Admin: 10/03/16 21:37 Dose: 10 mg Ferrous Sulfate (Feosol) 325 mg PO BID [facility] Last Admin: 10/04/16 08:35 Dose: 325 mg Glipizide (Glucotrol Xl) 10 mg PO BRK [facility] Last Admin: 10/04/16 08:40 Dose: 10 mg Glipizide (Glucotrol Xl) 5 mg PO ACD [facility] Last Admin: 10/03/16 16:56 Dose: 5 mg Home Med (Metformin Xr) 1,000 mg PO 1200,1700 [facility] Last Admin: 10/03/16 16:55 Dose: 1,000 mg Hydromorphone HCl (Dilaudid) 2 mg PO Q4 PRN PRN Reason: pain (4-8) Last Admin: 10/04/16 03:51 Dose: 2 mg Hydromorphone HCl (Dilaudid) 4 mg PO Q4 PRN PRN Reason: pain (9-10) Ceftazidime/Avibactam 1.25 gm/ (Sodium Chloride) 100 mls @ 100 mls/hr IVPB Q8H [facility] Last Admin: 10/04/16 04:31 Dose: 100 mls/hr Lactobacillus Acidophilus (Bacid Acidophilus) 1 cap PO BID [facility] Last Admin: 10/04/16 08:35 Dose: 1 cap Lactulose (Enulose) 20 gm PO DAILY PRN PRN Reason: Constipation Last Admin: 09/22/16 17:06 Dose: 20 gm Loratadine (Claritin) 10 mg PO DAILY [facility] Last Admin: 10/04/16 08:38 Dose: 10 mg Lorazepam (Ativan) 1 mg PO BID PRN PRN Reason: for anxiety Nystatin (Nystatin Oral Susp) 5 ml PO TID [facility] Last Admin: 10/04/16 08:40 Dose: 5 ml Ondansetron HCl (Zofran Inj) 4 mg IVP Q4H PRN PRN Reason: Nausea/Vomiting Oxandrolone (Oxandrin) 5 mg PO BID [facility] Last Admin: 10/04/16 08:45 Dose: 5 mg Oxycodone HCl (Oxycontin Extended Release Tab) 20 mg PO Q8 [facility] Last Admin: 10/04/16 06:06 Dose: 20 mg Pantoprazole Sodium (Protonix Ec Tab) 40 mg PO DAILY [facility] Last Admin: 10/04/16 08:37 Dose: 40 mg Pioglitazone HCl (Actos) 30 mg PO 1100 [facility] Last Admin: 10/03/16 12:04 Dose: 30 mg Fluticasone/Salmeterol (Advair Diskus 500/50) 1 puff INH RBID [facility] Last Admin: 10/04/16 08:34 Dose: 1 puff Sitagliptin Phosphate (Januvia) 100 mg PO DAILY [facility] Last Admin: 10/04/16 08:39 Dose: 100 mg - Labs Labs: 10/03/16 04:00 10/03/16 07:45 - Head Exam Head Exam: NORMAL INSPECTION - Eye Exam Eye Exam: Normal appearance - ENT Exam ENT Exam: Mucous Membranes Moist - Respiratory Exam Respiratory Exam: Clear to Ausculation Bilateral - Cardiovascular Exam Cardiovascular Exam: REGULAR RHYTHM - GI/Abdominal Exam GI & Abdominal Exam: Normal Bowel Sounds - Neurological Exam Neurological Exam: Awake, Oriented x3 Assessment and Plan (1) CKD (chronic kidney disease), stage II Status: Chronic (2) Diabetes mellitus Status: Chronic (3) Hypertension Status: Chronic (4) PVD (peripheral vascular disease) with claudication Status: Chronic (5) Abnormality of gait Status: Acute (6) Paroxysmal atrial fibrillation Status: Acute (7) 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
--- NOTE | 2016-10-04 12:03 | CP.PCM.PN ---
Subjective - Date & Time of Evaluation Date of Evaluation: 10/04/16 Time of Evaluation: 12:03 - Subjective Subjective: patient remains well. accucheck today is 126 has minimal cough No fever Objective - Vital Signs/Intake and Output Vital Signs (last 24 hours): Temp Pulse Resp BP Pulse Ox 96.8 F L 82 20 140/90 98 10/04/16 07:42 10/04/16 07:42 10/04/16 07:42 10/04/16 07:42 10/04/16 07:42 - Medications Medications: Current Medications Acetaminophen (Tylenol 325mg Tab) 650 mg PO Q6 PRN PRN Reason: Fever >100.4 F Al Hydrox/Mg Hydrox/Simethicone (Maalox Plus 30 Ml) 30 ml PO Q6H PRN PRN Reason: Indigestion / Heartburn Last Admin: 10/02/16 04:00 Dose: 30 ml Albuterol/Ipratropium (Duoneb 3 Mg/0.5 Mg (3 Ml) Ud) 3 ml INH RQID [facility] Last Admin: 10/04/16 11:45 Dose: 3 ml Amiodarone HCl (Cordarone) 200 mg PO HS [facility] Last Admin: 10/03/16 21:48 Dose: 200 mg Artificial Tears (Artificial Tears) 2 drop OU Q6 PRN PRN Reason: Dry eyes Last Admin: 10/01/16 14:20 Dose: 2 drop Clopidogrel Bisulfate (Plavix) 75 mg PO DAILY [facility] Last Admin: 10/04/16 08:37 Dose: 75 mg Clotrimazole (Lotrimin 1% Cream) 1 applic TOP BID [facility] Last Admin: 10/04/16 08:40 Dose: 1 applic Docusate Sodium (Colace) 100 mg PO TID [facility] Last Admin: 10/04/16 08:38 Dose: Not Given Epoetin Mp (Procrit) 10,000 unit SC MWF [facility] Last Admin: 10/02/16 08:45 Dose: 10,000 unit Escitalopram Oxalate (Lexapro) 10 mg PO HS [facility] Last Admin: 10/03/16 21:37 Dose: 10 mg Ferrous Sulfate (Feosol) 325 mg PO BID [facility] Last Admin: 10/04/16 08:35 Dose: 325 mg Glipizide (Glucotrol Xl) 10 mg PO BRK [facility] Last Admin: 10/04/16 08:40 Dose: 10 mg Glipizide (Glucotrol Xl) 5 mg PO ACD [facility] Last Admin: 10/03/16 16:56 Dose: 5 mg Home Med (Metformin Xr) 1,000 mg PO 1200,1700 [facility] Last Admin: 10/03/16 16:55 Dose: 1,000 mg Hydromorphone HCl (Dilaudid) 2 mg PO Q4 PRN PRN Reason: pain (4-8) Last Admin: 10/04/16 03:51 Dose: 2 mg Hydromorphone HCl (Dilaudid) 4 mg PO Q4 PRN PRN Reason: pain (9-10) Ceftazidime/Avibactam 1.25 gm/ (Sodium Chloride) 100 mls @ 100 mls/hr IVPB Q8H [facility] Last Admin: 10/04/16 04:31 Dose: 100 mls/hr Lactobacillus Acidophilus (Bacid Acidophilus) 1 cap PO BID [facility] Last Admin: 10/04/16 08:35 Dose: 1 cap Lactulose (Enulose) 20 gm PO DAILY PRN PRN Reason: Constipation Last Admin: 09/22/16 17:06 Dose: 20 gm Loratadine (Claritin) 10 mg PO DAILY [facility] Last Admin: 10/04/16 08:38 Dose: 10 mg Lorazepam (Ativan) 1 mg PO BID PRN PRN Reason: for anxiety Nystatin (Nystatin Oral Susp) 5 ml PO TID [facility] Last Admin: 10/04/16 08:40 Dose: 5 ml Ondansetron HCl (Zofran Inj) 4 mg IVP Q4H PRN PRN Reason: Nausea/Vomiting Oxandrolone (Oxandrin) 5 mg PO BID [facility] Last Admin: 10/04/16 08:45 Dose: 5 mg Oxycodone HCl (Oxycontin Extended Release Tab) 20 mg PO Q8 [facility] Last Admin: 10/04/16 06:06 Dose: 20 mg Pantoprazole Sodium (Protonix Ec Tab) 40 mg PO DAILY [facility] Last Admin: 10/04/16 08:37 Dose: 40 mg Pioglitazone HCl (Actos) 30 mg PO 1100 [facility] Last Admin: 10/03/16 12:04 Dose: 30 mg Fluticasone/Salmeterol (Advair Diskus 500/50) 1 puff INH RBID [facility] Last Admin: 10/04/16 08:34 Dose: 1 puff Sitagliptin Phosphate (Januvia) 100 mg PO DAILY [facility] Last Admin: 10/04/16 08:39 Dose: 100 mg - Labs Labs: 10/03/16 04:00 10/03/16 07:45 - Head Exam Head Exam: NORMAL INSPECTION - Eye Exam Eye Exam: Normal appearance - ENT Exam ENT Exam: Mucous Membranes Moist - Respiratory Exam Respiratory Exam: Clear to Ausculation Bilateral - Cardiovascular Exam Cardiovascular Exam: REGULAR RHYTHM - GI/Abdominal Exam GI & Abdominal Exam: Normal Bowel Sounds - Rectal Exam Rectal Exam: NORMAL INSPECTION - Psychiatric Exam Psychiatric exam: Normal Mood Assessment and Plan (1) CKD (chronic kidney disease), stage II Status: Chronic (2) Diabetes mellitus Status: Chronic (3) Hypertension Status: Chronic (4) PVD (peripheral vascular disease) with claudication Status: Chronic (5) Abnormality of gait Status: Acute (6) Paroxysmal atrial fibrillation Status: Acute (7) 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
[2016-10-04] MEDS: METFORMIN 500 MG PO SCH ×2 (12:17→17:10)
[2016-10-04] MEDS: GlipiZIDE 5 mg SR Tab PO SCH (17:11)
[2016-10-05] MEDS: oxyCODONE 20 mg ER Tab (oxyCONTIN) PO SCH ×3 (06:16→21:23)
[2016-10-05] MEDS: Albuterol-Ipratrop 3 mg / 0.5 (3 ml) UD INH SCH ×4 (07:34→19:42)
[2016-10-05] MEDS: Fluticasone-Salmeterol 500-50mcg Diskus INH SCH ×2 (08:32→20:08)
[2016-10-05] MEDS: GlipiZIDE 10 mg SR Tab PO SCH (08:32)
[2016-10-05] MEDS: Nystatin 100,000 Units/ml Oral Susp 5 ml UD PO SCH ×3 (08:33→17:22)
[2016-10-05] MEDS: Lactobacillus Acidophilus 500 MU Cap PO SCH ×2 (08:33→17:16)
[2016-10-05] MEDS: EPOETIN ALFA 10,000 UNIT/ML ML SC SCH (08:34)
[2016-10-05] MEDS: Pantoprazole 40 mg EC Tab PO SCH (08:34)
--- NOTE | 2016-10-05 08:47 | CP.PCM.PN ---
Subjective - Date & Time of Evaluation Date of Evaluation: 10/05/16 Time of Evaluation: 08:45 - Subjective Subjective: Patient remains well.Has no chest pain or SOB Afebrile Accucheck fasting in the 110 to 120'sGFR at 44 Has less cough CXR showed improvement On morethan 10 days of IV antibiotics. Objective - Vital Signs/Intake and Output Vital Signs (last 24 hours): Temp Pulse Resp BP Pulse Ox 97.8 F 90 20 136/64 98 10/04/16 20:00 10/04/16 21:05 10/04/16 20:00 10/04/16 21:05 10/04/16 15:56 - Medications Medications: Current Medications Acetaminophen (Tylenol 325mg Tab) 650 mg PO Q6 PRN PRN Reason: Fever >100.4 F Al Hydrox/Mg Hydrox/Simethicone (Maalox Plus 30 Ml) 30 ml PO Q6H PRN PRN Reason: Indigestion / Heartburn Last Admin: 10/02/16 04:00 Dose: 30 ml Albuterol/Ipratropium (Duoneb 3 Mg/0.5 Mg (3 Ml) Ud) 3 ml INH RQID [facility] Last Admin: 10/05/16 07:34 Dose: 3 ml Amiodarone HCl (Cordarone) 200 mg PO HS [facility] Last Admin: 10/04/16 21:05 Dose: 200 mg Artificial Tears (Artificial Tears) 2 drop OU Q6 PRN PRN Reason: Dry eyes Last Admin: 10/01/16 14:20 Dose: 2 drop Clopidogrel Bisulfate (Plavix) 75 mg PO DAILY [facility] Last Admin: 10/05/16 08:34 Dose: 75 mg Clotrimazole (Lotrimin 1% Cream) 1 applic TOP BID [facility] Last Admin: 10/05/16 08:33 Dose: 1 applic Epoetin Mp (Procrit) 10,000 unit SC MWF [facility] Last Admin: 10/05/16 08:34 Dose: 10,000 unit Escitalopram Oxalate (Lexapro) 10 mg PO HS [facility] Last Admin: 10/04/16 21:01 Dose: 10 mg Ferrous Sulfate (Feosol) 325 mg PO BID [facility] Last Admin: 10/05/16 08:32 Dose: 325 mg Glipizide (Glucotrol Xl) 10 mg PO BRK [facility] Last Admin: 10/05/16 08:32 Dose: 10 mg Glipizide (Glucotrol Xl) 5 mg PO ACD [facility] Last Admin: 10/04/16 17:11 Dose: 5 mg Home Med (Metformin Xr) 1,000 mg PO 1200,1700 [facility] Last Admin: 10/04/16 17:10 Dose: 1,000 mg Hydromorphone HCl (Dilaudid) 2 mg PO Q4 PRN PRN Reason: pain (4-8) Last Admin: 10/05/16 02:14 Dose: 2 mg Hydromorphone HCl (Dilaudid) 4 mg PO Q4 PRN PRN Reason: pain (9-10) Ceftazidime/Avibactam 1.25 gm/ (Sodium Chloride) 100 mls @ 100 mls/hr IVPB Q8H [facility] Last Admin: 10/05/16 04:50 Dose: 100 mls/hr Lactic Acid (Lac-Hydrin 12% Lotion (225 G)) 1 applic TOP 0600,1700 [facility] Lactobacillus Acidophilus (Bacid Acidophilus) 1 cap PO BID [facility] Last Admin: 10/05/16 08:33 Dose: 1 cap Lactulose (Enulose) 20 gm PO DAILY PRN PRN Reason: Constipation Last Admin: 09/22/16 17:06 Dose: 20 gm Loratadine (Claritin) 10 mg PO DAILY [facility] Last Admin: 10/05/16 08:34 Dose: 10 mg Lorazepam (Ativan) 1 mg PO BID PRN PRN Reason: for anxiety Nystatin (Nystatin Oral Susp) 5 ml PO TID [facility] Last Admin: 10/05/16 08:33 Dose: Not Given Ondansetron HCl (Zofran Inj) 4 mg IVP Q4H PRN PRN Reason: Nausea/Vomiting Oxandrolone (Oxandrin) 5 mg PO BID [facility] Last Admin: 10/05/16 08:33 Dose: 5 mg Oxycodone HCl (Oxycontin Extended Release Tab) 20 mg PO Q8 [facility] Last Admin: 10/05/16 06:16 Dose: 20 mg Pantoprazole Sodium (Protonix Ec Tab) 40 mg PO DAILY [facility] Last Admin: 10/05/16 08:34 Dose: 40 mg Pioglitazone HCl (Actos) 30 mg PO 1100 [facility] Last Admin: 10/04/16 11:16 Dose: 30 mg Fluticasone/Salmeterol (Advair Diskus 500/50) 1 puff INH RBID [facility] Last Admin: 10/05/16 08:32 Dose: 1 puff Sitagliptin Phosphate (Januvia) 100 mg PO DAILY [facility] Last Admin: 10/05/16 08:34 Dose: 100 mg - Labs Labs: 10/03/16 04:00 10/03/16 07:45 - Head Exam Head Exam: NORMAL INSPECTION - Eye Exam Eye Exam: Normal appearance - ENT Exam ENT Exam: Mucous Membranes Moist - Respiratory Exam Respiratory Exam: Decreased Breath Sounds - Cardiovascular Exam Cardiovascular Exam: REGULAR RHYTHM - Neurological Exam Neurological Exam: Awake, CN II-XII Intact, Oriented x3 Assessment and Plan (1) CKD (chronic kidney disease), stage II Status: Chronic (2) Diabetes mellitus Status: Chronic (3) Hypertension Status: Chronic (4) PVD (peripheral vascular disease) with claudication Status: Chronic (5) Abnormality of gait Status: Acute (6) Paroxysmal atrial fibrillation Status: Acute (7) 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
[2016-10-05] MEDS: METFORMIN 500 MG PO SCH ×2 (11:59→17:16)
[2016-10-05 12:14] LABS: IRON 52 ug/dL (49-181)
--- NOTE | 2016-10-05 15:19 | CP.PCM.CON ---
History of Present Illness - History of Present Illness History of Present Illness: 61 yo diabetic male patient seen at bedside on the rehab unit following request for podiatry consult. Pt seen resting comfortably in bed at time of visit. Nursing reports that after rehab today they noticed increased redness to the top of the left big toe. Nursing also reports that patient has had a scab over the left big toe since admission for rehab. Pt denies any numbness or tingling, denies pain to the left foot. Denies f/n/v/c/sob/cp. Denies any other pedal complaints at this time. PMH: DM II, legally blind ALL: clinda, duloxetine Surg. 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 Review of Systems - Review of Systems Review of Systems: All systems reviewed and found to be negative, except pertinent HPI findings above Past Patient History - Infectious Disease Hx of Infectious Diseases: None, C.diff - Tetanus Immunizations Tetanus Immunization: Unknown - Past Medical History & Family History Past Medical History?: Yes - Past Social History Smoking Status: Never Smoked Chewing Tobacco Use: No Cigar Use: No Alcohol: None Drugs: Denies Home Situation {Lives}: With Family - CARDIAC Hx Cardiac Disorders: Yes (afib) Hx Congestive Heart Failure: Yes (2012) Hx Hypercholesterolemia: Yes Hx Hypertension: Yes - PULMONARY Hx Pneumonia: Yes - NEUROLOGICAL HX Cerebrovascular Accident: Yes (pt reports minimal left sided weakness 2012) - HEENT Hx Cataracts: Yes (Left Eye iol) - RENAL Hx Chronic Kidney Disease: Yes - ENDOCRINE/METABOLIC Hx Diabetes Mellitus Type 2: Yes - HEMATOLOGICAL/ONCOLOGICAL Hx Anemia: Yes - MUSCULOSKELETAL/RHEUMATOLOGICAL Hx Osteomyelitis: Yes (right foot) Other/Comment: RT FOOT SX DECEMBER 2015 amp all 5 toes - GASTROINTESTINAL Hx Diverticulitis: Yes - GENITOURINARY/GYNECOLOGICAL Hx Genitourinary Disorders: No - PSYCHIATRIC Hx Depression: Yes Hx Substance Use: No - SURGICAL HISTORY Hx Appendectomy: Yes (30 Yrs. ago.) - ANESTHESIA Hx Anesthesia Reactions: Yes (hallucinations x 20 minutes post op toe amputation ) Meds Allergies/Adverse Reactions: Allergies Allergy/AdvReac Type Severity Reaction Status Date / Time clindamycin Allergy Intermediate RASH Verified 09/05/16 07:43 duloxetine HCl Allergy Intermediate tachycardia Verified 09/05/16 07:43 [From Cymbalta] - Medications Medications: Current Medications Acetaminophen (Tylenol 325mg Tab) 650 mg PO Q6 PRN PRN Reason: Fever >100.4 F Al Hydrox/Mg Hydrox/Simethicone (Maalox Plus 30 Ml) 30 ml PO Q6H PRN PRN Reason: Indigestion / Heartburn Last Admin: 10/02/16 04:00 Dose: 30 ml Albuterol/Ipratropium (Duoneb 3 Mg/0.5 Mg (3 Ml) Ud) 3 ml INH RQID [facility] Last Admin: 10/05/16 11:34 Dose: 3 ml Amiodarone HCl (Cordarone) 200 mg PO HS [facility] Last Admin: 10/04/16 21:05 Dose: 200 mg Artificial Tears (Artificial Tears) 2 drop OU Q6 PRN PRN Reason: Dry eyes Last Admin: 10/01/16 14:20 Dose: 2 drop Clopidogrel Bisulfate (Plavix) 75 mg PO DAILY [facility] Last Admin: 10/05/16 08:34 Dose: 75 mg Clotrimazole (Lotrimin 1% Cream) 1 applic TOP BID [facility] Last Admin: 10/05/16 08:33 Dose: 1 applic Epoetin Mp (Procrit) 10,000 unit SC MWF [facility] Last Admin: 10/05/16 08:34 Dose: 10,000 unit Escitalopram Oxalate (Lexapro) 10 mg PO HS [facility] Last Admin: 10/04/16 21:01 Dose: 10 mg Ferrous Sulfate (Feosol) 325 mg PO BID [facility] Last Admin: 10/05/16 08:32 Dose: 325 mg Glipizide (Glucotrol Xl) 10 mg PO BRK [facility] Last Admin: 10/05/16 08:32 Dose: 10 mg Glipizide (Glucotrol Xl) 5 mg PO ACD [facility] Last Admin: 10/04/16 17:11 Dose: 5 mg Home Med (Metformin Xr) 1,000 mg PO 1200,1700 [facility] Last Admin: 10/05/16 11:59 Dose: 1,000 mg Hydromorphone HCl (Dilaudid) 2 mg PO Q4 PRN PRN Reason: pain (4-8) Hydromorphone HCl (Dilaudid) 4 mg PO Q4 PRN PRN Reason: pain (9-10) Lactic Acid (Lac-Hydrin 12% Lotion (225 G)) 1 applic TOP 0600,1700 [facility] Lactobacillus Acidophilus (Bacid Acidophilus) 1 cap PO BID [facility] Last Admin: 10/05/16 08:33 Dose: 1 cap Lactulose (Enulose) 20 gm PO DAILY PRN PRN Reason: Constipation Last Admin: 09/22/16 17:06 Dose: 20 gm Loratadine (Claritin) 10 mg PO DAILY [facility] Last Admin: 10/05/16 08:34 Dose: 10 mg Lorazepam (Ativan) 1 mg PO BID PRN PRN Reason: for anxiety Nystatin (Nystatin Oral Susp) 5 ml PO TID [facility] Last Admin: 10/05/16 12:01 Dose: Not Given Ondansetron HCl (Zofran Inj) 4 mg IVP Q4H PRN PRN Reason: Nausea/Vomiting Oxandrolone (Oxandrin) 5 mg PO BID [facility] Last Admin: 10/05/16 08:33 Dose: 5 mg Oxycodone HCl (Oxycontin Extended Release Tab) 20 mg PO Q8 [facility] Last Admin: 10/05/16 13:19 Dose: 20 mg Pantoprazole Sodium (Protonix Ec Tab) 40 mg PO DAILY [facility] Last Admin: 10/05/16 08:34 Dose: 40 mg Pioglitazone HCl (Actos) 30 mg PO 1100 [facility] Last Admin: 10/05/16 11:58 Dose: 30 mg Fluticasone/Salmeterol (Advair Diskus 500/50) 1 puff INH RBID [facility] Last Admin: 10/05/16 08:32 Dose: 1 puff Sitagliptin Phosphate (Januvia) 100 mg PO DAILY [facility] Last Admin: 10/05/16 08:34 Dose: 100 mg Physical Exam - Constitutional Appears: Well, Non-toxic, No Acute Distress - Extremities Exam Additional comments: Lower extremity focused: R- s/p BKA right leg L- VASC- DP/PT pulses palpable, skin temp runs warm to cool, cft < 3 sec to digits x 5, +1 pitting edema noted to anterior leg DERM- scab noted to dorsal aspect of left hallux IPJ with slight blanching erythema noted, no fluctuance, no malodor, no drainage, no acute signs infection NEURO- gross pedal sensation is diminished to the left foot ORTHO- rigid hammering deformity of the hallux is noted on the IPJ, no pain to palpation of hallux, no other deformities appreciated - Neurological Exam Neurological exam: Alert, CN II-XII Intact, Oriented x3 - Psychiatric Exam Psychiatric exam: Normal Affect, Normal Mood Results - Vital Signs Recent Vital Signs: Last Vital Signs Temp 97.6 F 10/05/16 08:50 Pulse 88 10/05/16 08:50 Resp 20 10/05/16 08:50 BP 128/68 10/05/16 08:50 Pulse Ox 98 10/05/16 08:50 - Labs Result Diagrams: 10/03/16 04:00 10/03/16 07:45 Labs: Laboratory Results - last 24 hr 10/04/16 10/05/16 10/05/16 21:29 06:19 12:03 POC Glucose (mg/dL) 240 H 176 H Iron 52 TIBC 190 L % Saturation 28 Assessment & Plan - Assessment and Plan (Free Text) Assessment: 61 yo diabetic male patient w/ hoffman grade 0 ulceration to left hallux IPJ 2/2 diabetic neuropathy Plan: --Pt S&E --Plan discussed with attending Dr. Rand --Chart, labs, vitals reviewed: afebrile, WBC wnl (9.8) --Scab of left hallux aseptically and excisonally de-roofed with sterile # 15 blade. Healthy skin revealed with pre-ulcerative lesion noted. --Left hallux covered with bandaid. --Bactroban ordered to be applied tomorrow --Nails aspeptically debrided with nail nippers x 5. Pt tolerated well without incident. --Per pt he is for possible transfer to [facility] tomorrow ([place]) --Will continue to monitor
--- NOTE | 2016-10-05 15:32 | CP.PCM.PN ---
Subjective - Date & Time of Evaluation Date of Evaluation: 10/05/16 Time of Evaluation: 15:31 - Subjective Subjective: Patient seen and doing better 2 negative results for c.diff pain is well controlled still continue current care team conf tomorrow for d/c planning Objective - Vital Signs/Intake and Output Vital Signs (last 24 hours): Temp Pulse Resp BP Pulse Ox 97.6 F 88 20 128/68 98 10/05/16 08:50 10/05/16 08:50 10/05/16 08:50 10/05/16 08:50 10/05/16 08:50 - Medications Medications: Current Medications Acetaminophen (Tylenol 325mg Tab) 650 mg PO Q6 PRN PRN Reason: Fever >100.4 F Al Hydrox/Mg Hydrox/Simethicone (Maalox Plus 30 Ml) 30 ml PO Q6H PRN PRN Reason: Indigestion / Heartburn Last Admin: 10/02/16 04:00 Dose: 30 ml Albuterol/Ipratropium (Duoneb 3 Mg/0.5 Mg (3 Ml) Ud) 3 ml INH RQID [facility] Last Admin: 10/05/16 11:34 Dose: 3 ml Amiodarone HCl (Cordarone) 200 mg PO HS [facility] Last Admin: 10/04/16 21:05 Dose: 200 mg Artificial Tears (Artificial Tears) 2 drop OU Q6 PRN PRN Reason: Dry eyes Last Admin: 10/01/16 14:20 Dose: 2 drop Clopidogrel Bisulfate (Plavix) 75 mg PO DAILY [facility] Last Admin: 10/05/16 08:34 Dose: 75 mg Clotrimazole (Lotrimin 1% Cream) 1 applic TOP BID [facility] Last Admin: 10/05/16 08:33 Dose: 1 applic Epoetin Mp (Procrit) 10,000 unit SC MWF [facility] Last Admin: 10/05/16 08:34 Dose: 10,000 unit Escitalopram Oxalate (Lexapro) 10 mg PO HS [facility] Last Admin: 10/04/16 21:01 Dose: 10 mg Ferrous Sulfate (Feosol) 325 mg PO BID [facility] Last Admin: 10/05/16 08:32 Dose: 325 mg Glipizide (Glucotrol Xl) 10 mg PO BRK [facility] Last Admin: 10/05/16 08:32 Dose: 10 mg Glipizide (Glucotrol Xl) 5 mg PO ACD [facility] Last Admin: 10/04/16 17:11 Dose: 5 mg Home Med (Metformin Xr) 1,000 mg PO 1200,1700 [facility] Last Admin: 10/05/16 11:59 Dose: 1,000 mg Hydromorphone HCl (Dilaudid) 2 mg PO Q4 PRN PRN Reason: pain (4-8) Hydromorphone HCl (Dilaudid) 4 mg PO Q4 PRN PRN Reason: pain (9-10) Lactic Acid (Lac-Hydrin 12% Lotion (225 G)) 1 applic TOP 0600,1700 [facility] Lactobacillus Acidophilus (Bacid Acidophilus) 1 cap PO BID [facility] Last Admin: 10/05/16 08:33 Dose: 1 cap Lactulose (Enulose) 20 gm PO DAILY PRN PRN Reason: Constipation Last Admin: 09/22/16 17:06 Dose: 20 gm Loratadine (Claritin) 10 mg PO DAILY [facility] Last Admin: 10/05/16 08:34 Dose: 10 mg Lorazepam (Ativan) 1 mg PO BID PRN PRN Reason: for anxiety Nystatin (Nystatin Oral Susp) 5 ml PO TID [facility] Last Admin: 10/05/16 12:01 Dose: Not Given Ondansetron HCl (Zofran Inj) 4 mg IVP Q4H PRN PRN Reason: Nausea/Vomiting Oxandrolone (Oxandrin) 5 mg PO BID [facility] Last Admin: 10/05/16 08:33 Dose: 5 mg Oxycodone HCl (Oxycontin Extended Release Tab) 20 mg PO Q8 [facility] Last Admin: 10/05/16 13:19 Dose: 20 mg Pantoprazole Sodium (Protonix Ec Tab) 40 mg PO DAILY [facility] Last Admin: 10/05/16 08:34 Dose: 40 mg Pioglitazone HCl (Actos) 30 mg PO 1100 [facility] Last Admin: 10/05/16 11:58 Dose: 30 mg Fluticasone/Salmeterol (Advair Diskus 500/50) 1 puff INH RBID [facility] Last Admin: 10/05/16 08:32 Dose: 1 puff Sitagliptin Phosphate (Januvia) 100 mg PO DAILY [facility] Last Admin: 10/05/16 08:34 Dose: 100 mg - Labs Labs: 10/03/16 04:00 10/03/16 07:45
[2016-10-05 16:16] VITALS: TEMP 97.8
[2016-10-05] MEDS: GlipiZIDE 5 mg SR Tab PO SCH (17:16)
[2016-10-06] MEDS: oxyCODONE 20 mg ER Tab (oxyCONTIN) PO SCH ×2 (06:12→13:03)
[2016-10-06 07:41] LABS: BASO # 0.1 K/uL (0.0-0.2); BASO % 0.4 % (0.0-2.0); EOS # 0.2 K/uL (0.0-0.7); EOS % 1.2 % (0.0-4.0); HEMATOCRIT 26.3 % (35.0-51.0); LYMPH # 0.9 K/uL (1.0-4.3); LYMPH % 7.7 % (20.0-40.0); MEAN CORPUSCULAR HEMOGLOBIN 28.6 pg (27.0-31.0); MEAN CORPUSCULAR HGB CONC 31.7 g/dL (33.0-37.0); MEAN PLATELET VOLUME 6.6 fl (7.2-11.7); MONO # 0.7 K/uL (0.0-0.8); MONO % 5.7 % (0.0-10.0); NEUT # 10.4 K/uL (1.8-7.0); NRBC % 0.1 % (0.0-0.0); PLATELET COUNT 430 K/uL (130-400); RED CELL DISTRIBUTION WIDTH 16.5 % (11.5-14.5); WHITE BLOOD COUNT 12.3 K/uL (4.8-10.8)
[2016-10-06] MEDS: Albuterol-Ipratrop 3 mg / 0.5 (3 ml) UD INH SCH ×3 (07:52→15:49)
[2016-10-06 08:00] LABS: ALB/GLOB RATIO 0.7 (1.0-2.1); BILIRUBIN,TOTAL 0.3 mg/dl (0.2-1.3); CALCIUM 8.8 mg/dL (8.4-10.2); POTASSIUM 4.2 MMOL/L (3.6-5.0); TOTAL PROTEIN 6.7 G/DL (6.3-8.2)
[2016-10-06] MEDS: Fluticasone-Salmeterol 500-50mcg Diskus INH SCH (08:14)
[2016-10-06] MEDS: Pantoprazole 40 mg EC Tab PO SCH (08:15)
[2016-10-06] MEDS: Nystatin 100,000 Units/ml Oral Susp 5 ml UD PO SCH ×2 (08:17→12:59)
[2016-10-06] MEDS: Lactobacillus Acidophilus 500 MU Cap PO SCH (08:17)
[2016-10-06] MEDS: GlipiZIDE 10 mg SR Tab PO SCH (08:17)
[2016-10-06 09:07] VITALS: BP 116/67; PULSE 96; RESP 22; O2SAT 95
[2016-10-06] MEDS ORDERED: EPOETIN ALFA 10,000 UNIT/ML ML SC ONE (09:51)
--- NOTE | 2016-10-06 10:09 | CP.PCM.DIS ---
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 Status: Acute (9) Klebsiella infection Status: Acute Hospital Course - Lab Results Lab Results: Micro Results 09/25/16 09:31 Sputum Gram Stain - Final 09/25/16 09:31 Sputum Sputum Culture - Final Serratia Marcescens 09/18/16 12:08 Abdomen Gram Stain - Final 09/18/16 12:08 Abdomen Wound Culture - Final Klebsiella Pneumoniae Ssp Pneu Most Recent Lab Values WBC 12.3 K/uL (4.8-10.8) H 10/06/16 07:20 RBC 2.92 Mil/uL (4.40-5.90) L 10/06/16 07:20 Hgb 8.3 g/dL (12.0-18.0) L 10/06/16 07:20 Hct 26.3 % (35.0-51.0) L 10/06/16 07:20 MCV 90.0 fl (80.0-94.0) 10/06/16 07:20 MCH 28.6 pg (27.0-31.0) 10/06/16 07:20 MCHC 31.7 g/dL (33.0-37.0) L 10/06/16 07:20 RDW 16.5 % (11.5-14.5) H 10/06/16 07:20 Plt Count 430 K/uL (130-400) H 10/06/16 07:20 MPV 6.6 fl (7.2-11.7) L 10/06/16 07:20 Neut % (Auto) 85.0 % (50.0-75.0) H 10/06/16 07:20 Lymph % (Auto) 7.7 % (20.0-40.0) L 10/06/16 07:20 [place] % (Auto) 5.7 % (0.0-10.0) 10/06/16 07:20 Eos % (Auto) 1.2 % (0.0-4.0) 10/06/16 07:20 Baso % (Auto) 0.4 % (0.0-2.0) 10/06/16 07:20 Neut # 10.4 K/uL (1.8-7.0) H 10/06/16 07:20 Lymph # 0.9 K/uL (1.0-4.3) L 10/06/16 07:20 [place] # 0.7 K/uL (0.0-0.8) 10/06/16 07:20 Eos # 0.2 K/uL (0.0-0.7) 10/06/16 07:20 Baso # 0.1 K/uL (0.0-0.2) 10/06/16 07:20 Neutrophils % (Manual) 87 % (42-75) H 09/26/16 06:30 Lymphocytes % (Manual) 6 % (20-50) L 09/26/16 06:30 Monocytes % (Manual) 7 % (0-10) 09/26/16 06:30 Eosinophils % (Manual) 1 % (0-7) 09/18/16 17:47 Metamyelocytes % 1 % (0-0) H 09/23/16 05:25 Myelocytes % 4 % (0-0) H 09/18/16 17:47 Platelet Estimate Normal (NORMAL) 09/26/16 06:30 Hypochromasia (manual) Slight 09/26/16 06:30 Anisocytosis (manual) Slight 09/26/16 06:30 Macrocytosis (manual) Slight 09/26/16 06:30 ESR > 120 mm/hr (0-20) H 09/18/16 17:47 Sodium 143 mmol/l (132-148) 10/06/16 07:20 Potassium 4.2 MMOL/L (3.6-5.0) 10/06/16 07:20 Chloride 105 mmol/L (98-107) 10/06/16 07:20 Carbon Dioxide 25 mmol/L (22-30) 10/06/16 07:20 Anion Gap 17 (10-20) 10/06/16 07:20 BUN 16 mg/dl (9-20) 10/06/16 07:20 Creatinine 1.5 mg/dL (0.8-1.5) 10/06/16 07:20 Est GFR ( Amer) 58 10/06/16 07:20 Est GFR (Non-Af Amer) 48 10/06/16 07:20 POC Glucose (mg/dL) 154 mg/dL (65-110) H 10/06/16 05:54 Random Glucose 150 mg/dL (75-110) H 10/06/16 07:20 Hemoglobin A1c 7.3 % (4.2-6.5) H 09/18/16 17:47 Lactic Acid 2.3 MMOL/L (0.7-2.1) H 09/25/16 14:49 Calcium 8.8 mg/dL (8.4-10.2) 10/06/16 07:20 Iron 52 ug/dL (49-181) 10/05/16 12:03 TIBC 190 ug/dL (250-450) L 10/05/16 12:03 % Saturation 28 % (20-55) 10/05/16 12:03 Ferritin 369.0 ng/mL 10/06/16 07:20 Total Bilirubin 0.3 mg/dl (0.2-1.3) 10/06/16 07:20 GGT 68 U/L (8-78) 09/24/16 07:29 AST 29 U/L (17-59) 10/06/16 07:20 ALT 19 U/L (21-72) L D 10/06/16 07:20 Alkaline Phosphatase 92 U/L (38-126) 10/06/16 07:20 Alk Phos Iso-Intestine 5 % (1-24) 09/25/16 14:49 Alk Phos Iso-Bone 50 % (28-66) 09/25/16 14:49 Alk Phos Iso-Liver 45 % (25-69) 09/25/16 14:49 Alk Phos Iso-Placenta 0 % (<=0) 09/25/16 14:49 Alk Phos Iso-Renal 0 % (<=0) 09/25/16 14:49 Total Protein 6.7 G/DL (6.3-8.2) 10/06/16 07:20 Albumin 2.8 g/dL (3.5-5.0) L 10/06/16 07:20 Globulin 3.9 gm/dL (2.2-3.9) 10/06/16 07:20 Albumin/Globulin Ratio 0.7 (1.0-2.1) L 10/06/16 07:20 Triglycerides 162 mg/DL (0-149) H 09/18/16 17:47 Cholesterol 100 mg/dL (0-199) 09/18/16 17:47 LDL Cholesterol Direct 37 mg/dL (0-129) 09/18/16 17:47 HDL Cholesterol 26 MG/DL (30-70) L 09/18/16 17:47 Alpha Fetoprotein < 0.8 IU/mL (0.0-7.22) 09/24/16 07:29 CA 19-9 Antigen 99.2 U/mL (0-37) H 09/24/16 07:29 Vitamin B12 626 pg/mL (239-931) 10/06/16 07:20 Procalcitonin 0.48 NG/ML (0.19-0.49) 09/25/16 14:49 C. difficile Ag & Toxin Negative (NEGATIVE) 10/02/16 20:53 - Hospital Course Hospital Course: This is a 61 y/o male with uncontrolled DM 2 and CKD 3 admitted for rehab after a right BKA. He was also noted to have PVD in the left leg. He was initially on Insulin long acting and accucheck coverage. he was started on po meds and responded well to it. his GFR and creatinine has improved. Last GFR was 48.. Discharge Exam - Head Exam Head Exam: NORMAL INSPECTION - Eye Exam Eye Exam: Normal appearance - Respiratory Exam Respiratory Exam: NORMAL BREATHING PATTERN - Cardiovascular Exam Cardiovascular Exam: REGULAR RHYTHM - GI/Abdominal Exam GI & Abdominal Exam: Normal Bowel Sounds - Neurological Exam Neurological exam: CN II-XII Intact, Oriented x3 - Psychiatric Exam Psychiatric exam: Anxious, Normal Affect Discharge Plan - Follow Up Plan Condition: GOOD Disposition: TRANSF TO SNF Additional Instructions: arrange for subacute rehab' cont Pt]cont all po DM meds.'
[2016-10-06 11:57] LABS: EOSINOPHIL 3 % (0-7); MYELOCYTE 1 % (0-0); NEUTROPHIL 77 % (42-75); TOTAL CELLS COUNTED 100
[2016-10-06 11:59] LABS: LARGE PLATELETS PRESENT
[2016-10-06] MEDS: METFORMIN 500 MG PO SCH (12:00)
--- NOTE | 2016-10-20 14:28 | CP.PCM.DIS ---
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 Discharge Summary Discharge date: 10/06/16 - Review of Plan of Care Physical Therapy: Fail to Attain Occupational Therapy: Fail to Attain Recreational Therapy: Fail to Attain - Goal Attainment Ambulation: Fail to Attain Status on discharge: Non Ambulatory ADL: Fail to Attain Level of assistance: Minimal Assistance Transfer: Fail to Attain Level of assistance: Minimal Assistance - Plan for patients rehabilitation in the Subacute facility (weeks): 6 Discharge instructions provided to patient and family: Instructions with medications, Follow up with PMD and/or surgeon Hospital Course - Lab Results Lab Results: Micro Results 09/25/16 09:31 Sputum Gram Stain - Final 09/25/16 09:31 Sputum Sputum Culture - Final Serratia Marcescens 09/18/16 12:08 Abdomen Gram Stain - Final 09/18/16 12:08 Abdomen Wound Culture - Final Klebsiella Pneumoniae Ssp Pneu Most Recent Lab Values WBC 12.3 K/uL (4.8-10.8) H 10/06/16 07:20 RBC 2.92 Mil/uL (4.40-5.90) L 10/06/16 07:20 Hgb 8.3 g/dL (12.0-18.0) L 10/06/16 07:20 Hct 26.3 % (35.0-51.0) L 10/06/16 07:20 MCV 90.0 fl (80.0-94.0) 10/06/16 07:20 MCH 28.6 pg (27.0-31.0) 10/06/16 07:20 MCHC 31.7 g/dL (33.0-37.0) L 10/06/16 07:20 RDW 16.5 % (11.5-14.5) H 10/06/16 07:20 Plt Count 430 K/uL (130-400) H 10/06/16 07:20 MPV 6.6 fl (7.2-11.7) L 10/06/16 07:20 Neut % (Auto) 85.0 % (50.0-75.0) H 10/06/16 07:20 Lymph % (Auto) 7.7 % (20.0-40.0) L 10/06/16 07:20 [place] % (Auto) 5.7 % (0.0-10.0) 10/06/16 07:20 Eos % (Auto) 1.2 % (0.0-4.0) 10/06/16 07:20 Baso % (Auto) 0.4 % (0.0-2.0) 10/06/16 07:20 Neut # 10.4 K/uL (1.8-7.0) H 10/06/16 07:20 Lymph # 0.9 K/uL (1.0-4.3) L 10/06/16 07:20 [place] # 0.7 K/uL (0.0-0.8) 10/06/16 07:20 Eos # 0.2 K/uL (0.0-0.7) 10/06/16 07:20 Baso # 0.1 K/uL (0.0-0.2) 10/06/16 07:20 Neutrophils % (Manual) 77 % (42-75) H 10/06/16 07:20 Lymphocytes % (Manual) 10 % (20-50) L 10/06/16 07:20 Monocytes % (Manual) 9 % (0-10) 10/06/16 07:20 Eosinophils % (Manual) 3 % (0-7) 10/06/16 07:20 Metamyelocytes % 1 % (0-0) H 09/23/16 05:25 Myelocytes % 1 % (0-0) H 10/06/16 07:20 Hypersegmented Polys Present 10/06/16 07:20 Toxic Granulation Present 10/06/16 07:20 Platelet Estimate Increased (NORMAL) H 10/06/16 07:20 Large Platelets Present 10/06/16 07:20 Polychromasia Slight 10/06/16 07:20 Hypochromasia (manual) Slight 09/26/16 06:30 Anisocytosis (manual) Slight 10/06/16 07:20 Macrocytosis (manual) Slight 09/26/16 06:30 Tear Drop Cells Slight 10/06/16 07:20 Ovalocytes Slight 10/06/16 07:20 ESR > 120 mm/hr (0-20) H 09/18/16 17:47 Sodium 143 mmol/l (132-148) 10/06/16 07:20 Potassium 4.2 MMOL/L (3.6-5.0) 10/06/16 07:20 Chloride 105 mmol/L (98-107) 10/06/16 07:20 Carbon Dioxide 25 mmol/L (22-30) 10/06/16 07:20 Anion Gap 17 (10-20) 10/06/16 07:20 BUN 16 mg/dl (9-20) 10/06/16 07:20 Creatinine 1.5 mg/dL (0.8-1.5) 10/06/16 07:20 Est GFR ( Amer) 58 10/06/16 07:20 Est GFR (Non-Af Amer) 48 10/06/16 07:20 POC Glucose (mg/dL) 154 mg/dL (65-110) H 10/06/16 05:54 Random Glucose 150 mg/dL (75-110) H 10/06/16 07:20 Hemoglobin A1c 7.3 % (4.2-6.5) H 09/18/16 17:47 Lactic Acid 2.3 MMOL/L (0.7-2.1) H 09/25/16 14:49 Calcium 8.8 mg/dL (8.4-10.2) 10/06/16 07:20 Iron 52 ug/dL (49-181) 10/05/16 12:03 TIBC 190 ug/dL (250-450) L 10/05/16 12:03 % Saturation 28 % (20-55) 10/05/16 12:03 Ferritin 369.0 ng/mL 10/06/16 07:20 Total Bilirubin 0.3 mg/dl (0.2-1.3) 10/06/16 07:20 GGT 68 U/L (8-78) 09/24/16 07:29 AST 29 U/L (17-59) 10/06/16 07:20 ALT 19 U/L (21-72) L D 10/06/16 07:20 Alkaline Phosphatase 92 U/L (38-126) 10/06/16 07:20 Alk Phos Iso-Intestine 5 % (1-24) 09/25/16 14:49 Alk Phos Iso-Bone 50 % (28-66) 09/25/16 14:49 Alk Phos Iso-Liver 45 % (25-69) 09/25/16 14:49 Alk Phos Iso-Placenta 0 % (<=0) 09/25/16 14:49 Alk Phos Iso-Renal 0 % (<=0) 09/25/16 14:49 Total Protein 6.7 G/DL (6.3-8.2) 10/06/16 07:20 Albumin 2.8 g/dL (3.5-5.0) L 10/06/16 07:20 Globulin 3.9 gm/dL (2.2-3.9) 10/06/16 07:20 Albumin/Globulin Ratio 0.7 (1.0-2.1) L 10/06/16 07:20 Triglycerides 162 mg/DL (0-149) H 09/18/16 17:47 Cholesterol 100 mg/dL (0-199) 09/18/16 17:47 LDL Cholesterol Direct 37 mg/dL (0-129) 09/18/16 17:47 HDL Cholesterol 26 MG/DL (30-70) L 09/18/16 17:47 Alpha Fetoprotein < 0.8 IU/mL (0.0-7.22) 09/24/16 07:29 CA 19-9 Antigen 99.2 U/mL (0-37) H 09/24/16 07:29 Vitamin B12 626 pg/mL (239-931) 10/06/16 07:20 RBC Folate 697 ng/mL RBC (>280) 10/06/16 07:20 Procalcitonin 0.48 NG/ML (0.19-0.49) 09/25/16 14:49 C. difficile Ag & Toxin Negative (NEGATIVE) 10/02/16 20:53 Discharge Exam - Head Exam Head Exam: NORMAL INSPECTION Discharge Plan - Follow Up Plan Condition: GOOD Disposition: TRANSF TO SNF Additional Instructions: arrange for subacute rehab' cont Pt]cont all po DM meds.'
== END 2016-10-06 17:01 | DRG 559 ==
PROVIDERS: ADMIT Family Medicine; ATTEND Family Medicine
PROC: 3E0F7GC Introduction of Other Therapeutic Substance into Respiratory Tract, Via Natural or Artificial Opening (ICD-10-PCS; principal; 2016-09-17)
PROC: F07L6UZ Therapeutic Exercise Treatment of Musculoskeletal System - Lower Back / Lower Extremity using Prosthesis (ICD-10-PCS; 2016-09-18)
PROC: F07 Physical Rehabilitation and Diagnostic Audiology, Rehabilitation, Motor Treatment (ICD-10-PCS; 2016-09-18)
DX: Z47.81 Encounter for orthopedic aftercare following surgical amputation (principal); J15.8 Pneumonia due to other specified bacteria; J69.0 Pneumonitis due to inhalation of food and vomit; L89.312 Pressure ulcer of right buttock, stage 2; L89.152 Pressure ulcer of sacral region, stage 2; I13.0 Hypertensive heart and chronic kidney disease with heart failure and stage 1 through stage 4 chronic kidney disease, or unspecified chronic kidney disease; Z89.511 Acquired absence of right leg below knee; M86.171 Other acute osteomyelitis, right ankle and foot; I50.9 Heart failure, unspecified; E11.22 Type 2 diabetes mellitus with diabetic chronic kidney disease; E11.51 Type 2 diabetes mellitus with diabetic peripheral angiopathy without gangrene; N18.3 Chronic kidney disease, stage 3 (moderate); E11.65 Type 2 diabetes mellitus with hyperglycemia; R26.9 Unspecified abnormalities of gait and mobility; I48.0 Paroxysmal atrial fibrillation; E11.69 Type 2 diabetes mellitus with other specified complication; H54.0 Blindness, both eyes; B96.1 Klebsiella pneumoniae [K. pneumoniae] as the cause of diseases classified elsewhere; E78.00 Pure hypercholesterolemia, unspecified; Z86.73 Personal history of transient ischemic attack (TIA), and cerebral infarction without residual deficits; Z91.19 Patient's noncompliance with other medical treatment and regimen; I25.10 Atherosclerotic heart disease of native coronary artery without angina pectoris; H54.8 Legal blindness, as defined in USA

== ENCOUNTER 2017-03-05 14:14 | Emergency (ER) | payer MEDICARE ==
[2017-03-05 14:18] VITALS: PULSE 176; BMI 25.9
[2017-03-05 15:03] LABS: BASO # 0.1 K/uL (0.0-0.2); BASO % 0.6 % (0.0-2.0); EOS # 0.2 K/uL (0.0-0.7); EOS % 2.3 % (0.0-4.0); HEMATOCRIT 28.6 % (35.0-51.0); LYMPH # 1.3 K/uL (1.0-4.3); LYMPH % 14.1 % (20.0-40.0); MEAN CELL VOLUME 89.5 fl (80.0-94.0); MEAN CORPUSCULAR HEMOGLOBIN 30.1 pg (27.0-31.0); MEAN CORPUSCULAR HGB CONC 33.6 g/dL (33.0-37.0); MEAN PLATELET VOLUME 7.4 fl (7.2-11.7); MONO # 0.6 K/uL (0.0-0.8); NEUT # 7.1 K/uL (1.8-7.0); RED CELL DISTRIBUTION WIDTH 13.5 % (11.5-14.5); WHITE BLOOD COUNT 9.2 K/uL (4.8-10.8)
[2017-03-05 15:10] LABS: RBC URINE 1 /hpf (0-3); URINE BILIRUBIN NEGATIVE (NEGATIVE); URINE BLOOD SMALL (NEGATIVE); URINE COLOR STRAW (YELLOW); URINE GLUCOSE (UA) NEG (Normal); URINE KETONE NEGATIVE (NEGATIVE); URINE LEUKOCYTE ESTERASE NEG Leu/uL (Negative); URINE PROTEIN 100 mg/dL (NEGATIVE); URINE UROBILINOGEN 0.2-1.0 mg/dL (0.2-1.0); WBC URINE 3 /hpf (0-5)
[2017-03-05] MEDS ORDERED: Oxycodone/Acetaminophen 5/325 mg Tab PO STA (15:17)
[2017-03-05 15:20] LABS: ALB/GLOB RATIO 1.1 (1.0-2.1); ALCOHOL SERUM < 10 mg/dl (0-10); ALKALINE PHOSPHATASE 96 U/L (38-126); ALT/SGPT 26 U/L (21-72); AST/SGOT 19 U/L (17-59); BILIRUBIN,TOTAL 0.5 mg/dl (0.2-1.3); BLOOD UREA NITROGEN 38 mg/dl (9-20); CALCIUM 9.5 mg/dL (8.4-10.2); CARBON DIOXIDE 22 mmol/L (22-30); CHLORIDE 110 mmol/L (98-107); GFR AFRICAN-AMERICAN 47; GLUCOSE,RANDOM 49 mg/dL (75-110); POTASSIUM 4.7 MMOL/L (3.6-5.0); SODIUM 140 mmol/l (132-148); TOTAL PROTEIN 7.9 G/DL (6.3-8.2)
[2017-03-05] MEDS ORDERED: Sodium Chloride 0.9% 1,000 ML IV STA (15:23)
[2017-03-05] MEDS ORDERED: Oxycodone/Acetaminophen 5/325 mg Tab ONE (16:13)
[2017-03-05 17:59] VITALS: RESP 19; O2SAT 98
--- NOTE | 2017-03-05 18:07 | ED PDOC ---
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 PT stated that they are tried various nursing homes, but pt is particular and with limited funds for assisted living homes. PT states he has been taking more pain medication than Rx and his doctor is resistant to giving him more. Pt has expressed SI via cutting wrists or falling down on his walker. Past Medical History Reviewed: Historical Data, Nursing Documentation, Vital Signs Vital Signs: Last Vital Signs Temp 98 F 03/05/17 14:20 Pulse 69 03/05/17 17:58 Resp 19 03/05/17 17:58 BP 136/76 03/05/17 17:58 Pulse Ox 98 03/05/17 17:58 - Medical History PMH: Anemia, Atrial Fibrillation, CAD, Cardia Arrhythmia (a fib), CHF (2012), Depression, Diabetes, Diverticulitis, HTN, Hypercholesterolemia, Peripheral Edema, Pneumonia, Chronic Kidney Disease Denies: HIV, End Stage Renal Disease - Surgical History Surgical History: Appendectomy (30 Yrs. ago.) - Family History Family History: States: Unknown Family Hx - Immunization History Hx Tetanus Toxoid Vaccination: No Hx Influenza Vaccination: No Hx Pneumococcal Vaccination: No - Home Medications Home Medications: Ambulatory Orders Medication Instructions Recorded Amiodarone [Cordarone] 200 mg PO DAILY 03/05/17 Clopidogrel [Plavix] 75 mg PO DAILY 03/05/17 Furosemide [Lasix] 40 mg PO DAILY 03/05/17 Insulin Aspart/Insulin Aspar 50 units SC BID 03/05/17 [Novolog Mix 70/30 (70/30 units/ml)] Insulin Glargine, Recombina 40 unit SC DAILY 03/05/17 [Lantus] LORazepam [Ativan] 1 mg PO Q8 PRN 03/05/17 Naloxegol Oxalate [Movantik] 25 mg PO DAILY 03/05/17 SITagliptin [Januvia] 50 mg PO DAILY 03/05/17 Valsartan [Diovan] 160 mg PO DAILY 03/05/17 amLODIPine [Norvasc] 5 mg PO DAILY 03/05/17 diltiaZEM [Cardizem] 180 mg PO DAILY 03/05/17 oxyCODONE [oxyCODONE Immediate 30 mg PO Q8 PRN 03/05/17 Release Tab] - Allergies Allergies/Adverse Reactions: Allergies Allergy/AdvReac Type Severity Reaction Status Date / Time clindamycin Allergy Intermediate RASH Verified 09/05/16 07:43 duloxetine HCl Allergy Intermediate tachycardia Verified 09/05/16 07:43 [From Cymbalta] Review of Systems ROS Statement: Except As Marked, All Systems Reviewed And Found Negative Musculoskeletal: Positive for: Other (BKA noted on right) Physical Exam - Reviewed Nursing Documentation Reviewed: Yes Vital Signs Reviewed: Yes - Physical Exam Appears: Positive for: Non-toxic, No Acute Distress, Uncomfortable Head Exam: Positive for: ATRAUMATIC, NORMAL INSPECTION, NORMOCEPHALIC Skin: Positive for: Normal Color, Warm, DRY Eye Exam: Positive for: EOMI, Normal appearance, PERRL Neck: Positive for: Normal, Painless ROM Cardiovascular/Chest: Positive for: Regular Rate, Rhythm Respiratory: Positive for: CNT, Normal Breath Sounds Gastrointestinal/Abdominal: Positive for: Normal Exam, Bowel Sounds, Soft. Negative for: Tenderness Extremity: Positive for: Other (BKA on right) Neurologic/Psych: Positive for: Alert, Oriented - Laboratory Results Result Diagrams: 03/05/17 14:52 03/05/17 14:52 - ECG O2 Sat by Pulse Oximetry: 98 - Progress ED Course And Treament: crisis consult was placed pt has unremarkable labs. pt had crisis eval-pt does not meet crisis criteria for admission and will need to be d/c. Pt is need of SW assistance.crisis had provided pt with information. Medical Decision Making Medical Decision Making: pt will be d.c with f.u with pmd and given contact for SW for better assistance. pt advised he is in [place] fo pain mgnt for pain control and notified that because of exceivss use of pain control he can't be given another script for this month.pt is not happy with results of ER visit. pt given percocet for nereyda control in ER. pt is safe to return home at this time. . Disposition - Clinical Impression Clinical Impression: Depression, Chronic pain - Patient ED Disposition Is Patient to be Admitted: No Counseled Patient/Family Regarding: Need For Followup - Disposition Referrals: [facility] [Outside] [facility] [Provider Group] Disposition: Routine/Home Disposition Time: 18:13 Condition: STABLE Instructions: Depression (ED), Chronic Pain (DC) Forms: [employer] ([place])
[2017-03-05 18:34] VITALS: BP 128/78; PULSE 78; TEMP 97.6
--- NOTE | 2017-03-06 08:39 | CARD ---
APPROVED REPORT EKG Measurement Heart [id number] <Conclusion> Normal sinus rhythm Normal ECG
== END 2017-03-05 18:50 | disposition home or self-care (01) ==
LOC: H.ER 14:14
DX: F32.9 Major depressive disorder, single episode, unspecified (principal); G89.29 Other chronic pain; I25.10 Atherosclerotic heart disease of native coronary artery without angina pectoris; I48.91 Unspecified atrial fibrillation; I10 Essential (primary) hypertension; E11.9 Type 2 diabetes mellitus without complications; D64.9 Anemia, unspecified
CPT/HCPCS: 80053; 81003; 82948; 85025; 93005; 96374; 99283; G0480; J1885; J7040